=== PATIENT | female | born 1965 | race Caucasian/White ===

== ENCOUNTER 2023-04-02 08:32 | Emergency (ER) | payer BC, MEDICARE, SELFPAY ==
[2023-04-02] VITALS (14 sets, daily range): BP systolic 132–158; BP diastolic 66–88; PULSE 78–89; RESP 12–14; TEMP 36.4; O2SAT 97–100; BMI 33.3
--- NOTE | 2023-04-02 09:05 | CRLHL7_ITS ---
For Patients: As a result of the Century Cures Act, medical imaging exams and procedure reports are released immediately into your electronic medical record. You may view this report before your referring provider. If you have questions, please contact your health care provider. INDICATION: History of aneurysm. COMPARISON: None TECHNIQUE: CT examination of the head was performed as axial sections without intravenous contrast. Images were obtained from the vertex of the skull through the skull base. Please note that all CT scans at this facility use dose modulation, iterative reconstruction, and/or weight-based dosing when appropriate to reduce radiation dose to as low as reasonably achievable. FINDINGS: The brain shows no sign of mass lesion, mass effect, hemorrhage, or edema. The ventricles and sulci are normal in appearance for the patient`s age. The visualized portions of the orbits are normal in appearance. There are bilateral basal ganglionic calcifications which is considered normal variation. The osseous structures are normal in their appearance with no sign of abnormality in the skull base or calvarium. The patient`s reported known aneurysm is not directly visible on this noncontrast study. If this needs to be definitively evaluated, a CT angiogram would be recommended. IMPRESSION: 1. The patient`s reported/known aneurysm is not directly visible on this noncontrast study. Consider a CTA if definitive evaluation of an intercerebral aneurysm as required clinically. 2. No hemorrhage or mass identified. 3. Incidental basal ganglionic calcifications common normal variation. Please note that all CT scans at this facility use dose modulation, iterative reconstruction, and/or weight-based dosing when appropriate to reduce radiation dose to as low as reasonably achievable. Dictated by Angel Youngblood MD @ 04/02/2023 9:42:19 AM (Electronically Signed)
--- NOTE | 2023-04-02 09:06 | CRLHL7_ITS ---
For Patients: As a result of the Century Cures Act, medical imaging exams and procedure reports are released immediately into your electronic medical record. You may view this report before your referring provider. If you have questions, please contact your health care provider. INDICATION: Reported history of aneurysm. TECHNIQUE: CTA neck with contrast bolus tracking, 3D angiographic rendering using maximum intensity projection (MIP) and images permanently archived. FINDINGS: There is no significant carotid artery stenosis or dissection. There is no significant vertebral artery stenosis or dissection. The soft tissues of the neck are within normal limits. The cervical spine is in normal alignment. Degenerative changes are noted in the cervical spine. IMPRESSION: No significant carotid or vertebral artery stenosis or dissection. Please note that all CT scans at this facility use dose modulation, iterative reconstruction, and/or weight-based dosing when appropriate to reduce radiation dose to as low as reasonably achievable. Dictated by Christian Vaughn MD @ 04/02/2023 11:35:42 AM (Electronically Signed)
--- NOTE | 2023-04-02 09:06 | CRLHL7_ITS ---
For Patients: As a result of the Century Cures Act, medical imaging exams and procedure reports are released immediately into your electronic medical record. You may view this report before your referring provider. If you have questions, please contact your health care provider. INDICATION: Reported history of aneurysm. TECHNIQUE: CTA head with contrast bolus tracking, 3D angiographic rendering using maximum intensity projection (MIP) and images permanently archived. FINDINGS: There is normal opacification of the intracranial vasculature. There is no large vessel occlusion or significant intracranial stenosis. A left PCOM infundibulum is noted, an anatomic variant. No aneurysm is identified. A large mucous retention cyst is noted in the right maxillary sinus. IMPRESSION: Unremarkable head CTA. Please note that all CT scans at this facility use dose modulation, iterative reconstruction, and/or weight-based dosing when appropriate to reduce radiation dose to as low as reasonably achievable. Dictated by Christian Vaughn MD @ 04/02/2023 11:34:57 AM (Electronically Signed)
--- NOTE | 2023-04-02 09:09 | ED_ITS ---
HPI - General Adult General Chief complaint: Neuro Symptoms/Altered Deficit Stated complaint: passed out Time Seen by Provider: 04/02/23 09:03 History of Present Illness HPI narrative: Patient is a 57-year-old female was seen in the triage room. She has a history of by her report my CME gravis, fibromyalgia, unruptured cerebral aneurysm. She was eating some peppers at a table last night and passed out. Family reported that she slumped her head down on the table. Today she feels ?weird?. She has no chest pain, no breathing problem, feels like she has a little lightheadedness a little headache a little ?fuzziness?. The patient denies any specific limb weakness although feels generally weak. She has no other specific concerns presently was brought in by her mother. Patient denies clotting or bleeding problems, coronary artery disease, lung disease. She also has hypothyroidism. The patient's medication list includes albuterol, calcium carbonate, dextroamphetamine, [place] chloroquine, levothyroxine, lisinopril, methotrexate, promethazine, vilazodone. She normally doctors to [facility] Related Data Home Medications Medication Instructions Recorded Confirmed albuterol 90 mcg/actuation aerosol 180 mcg inhalation .q4hrs PRN 04/02/23 04/02/23 inhaler calcium carbonate 600 mg calcium 600 mg PO BID 04/02/23 04/02/23 (1,500 mg) tablet (Super Calcium) dextroamphetamine sulfate 5 mg 5 mg PO DAILY 04/02/23 04/02/23 capsule,extended release hydroxychloroquine 200 mg tablet 200 mg PO BID 04/02/23 04/02/23 levothyroxine 125 mcg tablet 125 mcg PO DAILY 04/02/23 04/02/23 (Euthyrox) lisinopril 10 mg tablet 10 mg PO DAILY 04/02/23 04/02/23 methotrexate sodium 2.5 mg tablet 15 mg PO QWEEK 04/02/23 04/02/23 promethazine 25 mg tablet 25 mg PO Q6H PRN 04/02/23 04/02/23 vilazodone 40 mg tablet 40 mg PO DAILY PRN 04/02/23 04/02/23 Allergies Allergy/AdvReac Type Severity Reaction Status Date / Time azithromycin Allergy Unknown Verified 04/02/23 11:08 benzoin Allergy Unknown Verified 04/02/23 11:08 bupropion Allergy Unknown Verified 04/02/23 11:08 cephalexin Allergy Unknown Verified 04/02/23 11:08 chlorhexidine Allergy Unknown Verified 04/02/23 11:08 levofloxacin Allergy Unknown Verified 04/02/23 11:08 neomycin Allergy Unknown Verified 04/02/23 11:08 tetracycline Allergy Unknown Verified 04/02/23 11:08 Iodinated Contrast Media Allergy Anaphylaxis Verified 04/02/23 11:08 Review of Systems Status of ROS: Reports: 6 or more systems reviewed and unremarkable except as noted in History and below [facility] Social History Smoking Status: Unknown if ever smoked How often do you have a drink containing alcohol: never AUDIT-C Alcohol total score: 0 Non-prescribed substance use: denies use Exam Narrative: Exam Narrative: Objective: Patient is alert orient x3 Vital signs are within normal limits, afebrile, O2 sat 100% on room air HEENT shows face no facial asymmetry, pupils equal reaction to light neck is supple Neurologic is nonfocal upper lower extremities she is able to stand she just feels generally weak Patient pulses regular Denies abdominal pain or back pain. Const: Vital Signs, click to edit/add: Vital Signs - 24 hr 04/02/23 08:55 04/02/23 09:25 04/02/23 09:36 Temperature 97.5 F L Pulse Rate Pulse Rate [Pulse Oximeter] 89 Respiratory Rate 14 Blood Pressure 150/87 H Blood Pressure [Ri ght Upper Arm] 141/85 H Pulse Oximetry 100 98 Oxygen Delivery Me od Room Air Room Air 04/02/23 09:38 04/02/23 09:40 04/02/23 09:46 Temperature Pulse Rate 85 84 Pulse Rate [Pulse Oximeter] Respiratory Rate 14 12 Blood Pressure 158/85 H 156/88 H Blood Pressure [Ri ght Upper Arm] Pulse Oximetry 98 98 Oxygen Delivery Me thod 04/02/23 10:01 04/02/23 10:17 04/02/23 10:31 Temperature Pulse Rate 81 84 84 Pulse Rate [Pulse Oximeter] Respiratory Rate 14 12 14 Blood Pressure 156/85 H 158/79 H 146/73 H Blood Pressure [Ri ght Upper Arm] Pulse Oximetry 98 97 98 [facility] 04/02/23 10:47 04/02/23 11:16 04/02/23 11:32 Temperature Pulse Rate 78 85 85 Pulse Rate [Pulse Oximeter] Respiratory Rate 12 12 12 Blood Pressure 150/72 H 137/66 133/75 Blood Pressure [Ri ght Upper Arm] Pulse Oximetry 98 98 98 Oxygen Delivery Me thod 04/02/23 11:47 04/02/23 12:00 Temperature 97.5 F L Pulse Rate 87 Pulse Rate [Pulse Oximeter] 89 Respiratory Rate 12 14 Blood Pressure 132/66 Blood Pressure [Ri ght Upper Arm] 141/85 H Pulse Oximetry 97 Oxygen Delivery Me thod Course Vital Signs Vital signs: Initial Vital Signs Temperature 97.5 F L 04/02/23 08:55 Temperature Source Temporal Artery Scan 04/02/23 08:55 Pulse Rate 89 04/02/23 08:55 Pulse Rhythm Regular 04/02/23 08:55 Respiratory Rate 14 04/02/23 08:55 Blood Pressure 141/85 H 04/02/23 08:55 Blood Pressure Mean 103 04/02/23 08:55 Blood Pressure Position Sitting 04/02/23 08:55 Pulse Oximetry 100 04/02/23 08:55 Oxygen Delivery Method Room Air 04/02/23 08:55 Vital Signs Temperature 97.5 F L 04/02/23 08:55 Pulse Rate 89 04/02/23 08:55 Respiratory Rate 14 04/02/23 08:55 Blood Pressure 141/85 H 04/02/23 08:55 Pulse Oximetry 100 04/02/23 08:55 Oxygen Delivery Method Room Air 04/02/23 08:55 Temperature 97.5 F L 04/02/23 12:00 Pulse Rate 89 04/02/23 12:00 Respiratory Rate 14 04/02/23 12:00 Blood Pressure 141/85 H 04/02/23 12:00 Pulse Oximetry 97 04/02/23 11:47 Oxygen Delivery Method Room Air 04/02/23 10:01 Medications Administered Medications: Discontinued Medications Generic Name Dose Route Start Last Admin Trade Name Freq PRN Reason Stop Dose Admin Diphenhydramine HCl 50 mg 04/02/23 09:21 04/02/23 09:36 Diphenhydramine 50 Mg/Ml Inj IVP 04/02/23 09:22 50 mg ONCE ONE Administration Hydrocortisone Sodium Succinate 200 mg 04/02/23 09:21 04/02/23 09:33 Hydrocortisone Sod Succinate 50 Mg/Ml Inj IVP 04/02/23 09:22 200 mg ONCE ONE Administration Sodium Chloride 1,000 mls @ 6,000 mls/hr 04/02/23 09:15 04/02/23 10:45 0.9 % Sodium Chloride 1000 Ml IV 04/02/23 09:24 Infused .Q10M [facility] Infusion Medical Decision Making [facility] Narrative Medical decision making narrative: [age] year white female with history of by her report fibromyalgia, myasthenia, cerebral aneurysm. Presents after syncopal episode last night after eating certain foods. Possible allergic reaction, possible [employer] issue, possible lack tried issue patient will get lab studies, CT scan CTA of the head neck, will also get EKG telemetry oximetry and also check troponin. Do a complete battery of labs. Give some IV fluid. Disposition pending findings above. Patient also reports she has a contrast allergy, but in discussing this with her she has only mild itching after premedication I think that be worth doing given her presentation and the fact that we need the study her head . She is willing to proceed with this will be given hydrocortisone and Benadryl pre CT. Addendum 11:42 a.m.: The patient feels better, she has a negative head and neck CT CTA, her laboratory studies look reassuring, her EKG by my read shows normal sinus rhythm no acute ST T wave changes, her troponin is 0. White count hemoglobin are normal. ER profile and LFTs are normal. Urinalysis and urine tox screen are negative other than amphetamine which she is on dextrose with dextroamphetamine. Alcohol levels negative. This point I think home rest light activity be reasonable observation, follow-up with primary care in the next 2-3 days recheck here sooner problems or concerns. I suspect she may have had a vasovagal reaction to the food she was eating. But will need to see how things progress over time. Follow-up as mention. Of note is the patient has had no chest pain, no shortness of breath, no hypoxia. I suspect have no suspicion for pulmonary emboli at this time given her reassuring clinical evaluation, absence of symptoms and good oximetry. Lab Data Labs: Lab Results 04/02/23 04/02/23 04/02/23 Range/Units 09:15 09:18 10:27 WBC 6.72 (4.50-11.00) K/uL RBC 4.77 (4.00-5.20) m/uL Hgb 14.1 (12.0-16.0) gm/dL Hct 42.9 (33.0-51.0) % MCV 90 (80-100) fL MCH 30 (26-34) pg MCHC 33 (32-36) gm/dL RDW Coeff of Raven 12.6 (11.5-15.5) % Plt Count 267 (140-440) K/uL Neut % (Auto) 53.5 (42.0-72.0) % Lymph % (Auto) 35.0 (20-44) % [place] % (Auto) 8.3 (0.0-11.0) % Eos % (Auto) 2.4 (0.0-7.0) % Baso % (Auto) 0.7 (0.0-3.0) % Neut # (Auto) 3.59 (1.7-7.0) K/uL Lymph # (Auto) 2.35 (0.90-2.90) K/uL [place] # (Auto) 0.60 (0.00-0.90) K/UL Eos # (Auto) 0.16 (0.00-0.50) K/uL Baso # (Auto) 0.05 (0.00-0.30) K/uL Abs Immat Gran (auto) 0.01 (0.00-0.30) K/uL Imm/Tot Granulo (auto) 0.1 % INR 0.85 L (0.91-1.10) Sodium 140 (135-149) mmol/L Potassium 4.0 (3.6-5.1) mmol/L Chloride 105 (96-114) mmol/L Carbon Dioxide 29 (20-32) mmol/L Anion Gap 6 L (7-15) mEq/L BUN 20 (7-30) mg/dL Creatinine 0.9 (0.5-1.5) mg/dL Estimated Creat Clear 62.06 Estimated GFR 75 ml/min Glucose 100 (60-115) mg/dL Calcium 10.4 (8.4-10.6) mg/dL Total Bilirubin 0.7 (0.1-1.5) mg/dL Direct Bilirubin 0.1 (0.0-0.5) mg/dL AST 28 (12-35) U/L ALT 26 (4-35) U/L Alkaline Phosphatase 90 (40-150) U/L C-Reactive Protein 0.6 (0.5-1.0) mg/dL NT-Pro-B Natriuret Pep 21 pg/mL Total Protein 7.3 (6.0-8.3) g/dL Albumin 4.5 (3.3-5.0) g/dL Urine Color Yellow (Yellow) Urine Appearance Clear (Clear) Urine pH 6.0 (5.0-8.5) Ur Specific [place] 1.015 (1.000-1.030) Urine Protein Negative (Negative) Urine Glucose (UA) Negative (Negative) Urine Ketones Negative (Negative) Urine Blood Negative (Negative) Urine Nitrite Negative (Negative) Urine Bilirubin Negative (Negative) Urine Urobilinogen 0.2 (0.2-1.0) Ur Leukocyte Esterase Negative (Negative) Urine RBC 0-2 (0-2) Urine WBC 0-2 (0-5) Ur Squamous Epith Cells Few (None-Few) Urine Bacteria None (None) Urine Opiates Screen Negative (Negative) Ur Oxycodone Screen Negative (Negative) Urine Methadone Screen Negative (Negative) Ur Propoxyphene Screen Negative (Negative) Ur Barbiturates Screen Negative (Negative) U Tricyclic Antidepress Negative (Negative) Ur Phencyclidine Scrn Negative (Negative) Ur Amphetamines Screen POSITIVE A (Negative) U Methamphetamines Scrn Negative (Negative) U Benzodiazepines Scrn Negative (Negative) Urine Cocaine Screen Negative (Negative) U Marijuana (THC) Screen Negative (Negative) Ur Drug Screen Comment See Note Ethyl Alcohol < 0.01 L (0.01-0.03) % SARS-CoV-2 (PCR) Negative SARS-CoV-2 (Negative) Influenza Type A (PCR) Negative PCR FLU A (Negative) Influenza Type B (PCR) Negative PCR FLU B (Negative) RSV (PCR) Negative PCR RSV (Negative) POC Troponin I 0.00 L (0.01-0.04) ng/ml Discharge Plan Discharge Clinical Impression: Syncope Patient Disposition: Home w/ Parent or Adult Condition: Improved Additional Instructions: Light activity, fluids, follow-up with primary care in the next 2-3 days, return to ED sooner problems concerns difficulty. Recommend no driving or alcohol for the next few days. Activity Level: Light activity Discharge Diet: Regular Prescriptions: No Action dextroamphetamine sulfate 5 mg capsule, extended release 5 mg PO DAILY lisinopril 10 mg tablet 10 mg PO DAILY promethazine 25 mg tablet 25 mg PO Q6H PRN calcium carbonate [Super Calcium] 600 mg calcium (1,500 mg) tablet 600 mg PO BID methotrexate sodium 2.5 mg tablet 15 mg PO QWEEK levothyroxine [Euthyrox] 125 mcg tablet 125 mcg PO DAILY Rx Instructions: 1 tab daily 6 times a week and 0.5 tab (62.5 mg) once every week. hydroxychloroquine 200 mg tablet 200 mg PO BID albuterol 90 mcg/actuation aerosol 180 mcg inhalation .q4hrs PRN vilazodone 40 mg tablet 40 mg PO DAILY PRN Rx Instructions: must administer with a meal/food Stand Alone Forms: [facility]
[2023-04-02] MEDS: 0.9 % SODIUM CHLORIDE 1000 ml 1,000 ML 6000 ML IV (09:23)
[2023-04-02 09:30] LABS: Basophils Absolute Auto 0.05 K/uL (0.00-0.30); Basophils Percent Auto 0.7 % (0.0-3.0); Eosinophils Absolute Auto 0.16 K/uL (0.00-0.50); Eosinophils Percent Auto 2.4 % (0.0-7.0); Hematocrit 42.9 % (33.0-51.0); Hemoglobin* 14.1 gm/dL (12.0-16.0); Immature Granulocytes Abs Auto 0.01 K/uL (0.00-0.30); Immature Granulocytes Pct Auto 0.1 %; Lymphocytes Absolute Auto 2.35 K/uL (0.90-2.90); Mean Corpuscular HGB Conc 33 gm/dL (32-36); Mean Corpuscular Hemoglobin 30 pg (26-34); Mean Corpuscular Volume 90 fL (80-100); Monocytes Percent Auto 8.3 % (0.0-11.0); Neutrophils Absolute Auto 3.59 K/uL (1.7-7.0); Neutrophils Percent Auto 53.5 % (42.0-72.0); Platelet Count* 267 K/uL (140-440); RDW Coefficient of Variation % 12.6 % (11.5-15.5); Red Blood Count 4.77 m/uL (4.00-5.20); White Blood Count* 6.72 K/uL (4.50-11.00)
[2023-04-02] MEDS: HYDROCORTISONE SOD SUCCINATE 50 MG/ML inj 200 MG IVP (09:33)
[2023-04-02] MEDS: diphenhydrAMINE 50 MG/ML inj IVP (09:36)
[2023-04-02 09:43] LABS: Slide Review Reflex No
[2023-04-02 09:45] LABS: Albumin* 4.5 g/dL (3.3-5.0); Chloride* 105 mmol/L (96-114); INR 0.85 (0.91-1.10); Prothrombin Time 12.1 Seconds; Sodium* 140 mmol/L (135-149)
[2023-04-02 09:48] LABS: Alkaline Phosphatase* 90 U/L (40-150); Anion Gap 6 mEq/L (7-15); Aspartate Amino Transferase* 28 U/L (12-35); Bilirubin Direct* 0.1 mg/dL (0.0-0.5); Bilirubin Total* 0.7 mg/dL (0.1-1.5); Carbon Dioxide* 29 mmol/L (20-32); Creatinine* 0.9 mg/dL (0.5-1.5); Est. Creatinine Clearance* 62.06; Estimated Glomerular Filt Rate 75 ml/min; Total Protein* 7.3 g/dL (6.0-8.3)
[2023-04-02 09:49] LABS: Alanine Aminotransferase* 26 U/L (4-35); Blood Urea Nitrogen* 20 mg/dL (7-30); Calcium* 10.4 mg/dL (8.4-10.6); Glucose* 100 mg/dL (60-115)
[2023-04-02 09:51] LABS: C Reactive Protein* 0.6 mg/dL (0.5-1.0)
[2023-04-02 09:57] LABS: Ethanol* < 0.01 % (0.01-0.03); NT Pro B Type NatriureticPept* 21 pg/mL
[2023-04-02 10:22] LABS: PCR FLU A Negative PCR FLU A (Negative); PCR FLU B Negative PCR FLU B (Negative); PCR RSV Negative PCR RSV (Negative)
[2023-04-02 10:27] LABS: SARS PCR* Negative SARS-CoV-2 (Negative)
[2023-04-02 10:35] LABS: Appearance Urine Clear (Clear); Bilirubin Urine Negative (Negative); Blood Urine Negative (Negative); Color Urine Yellow (Yellow); Glucose Urine Negative (Negative); Ketones Urine Negative (Negative); Leukocyte Esterase Urine Negative (Negative); Nitrite Urine Negative (Negative); Protein Urine Negative (Negative); Specific Gravity Urine 1.015 (1.000-1.030); Urobilinogen Urine 0.2 (0.2-1.0)
[2023-04-02 10:45] LABS: Amphetamine Screen Urine POSITIVE (Negative); Barbiturate Screen Urine Negative (Negative); Benzodiazepines Screen Urine Negative (Negative); Cannabinoid Screen Urine Negative (Negative); Cocaine Screen Urine Negative (Negative); Methadone Screen Urine Negative (Negative); Methamphetamines Screen Urine Negative (Negative); Opiate Screen Urine Negative (Negative); Oxycodone Screen Urine Negative (Negative); Phencyclidine Screen Urine Negative (Negative); Tricyclic Antidepressant Urine Negative (Negative)
[2023-04-02 10:57] LABS: RBC Urine 0-2 (0-2); Squamous Epithelial Cell Urine Few (None-Few); WBC Urine 0-2 (0-5)
--- NOTE | 2023-04-02 11:16 | ED.NURSE ---
0855-Pt to triage room. 0857-Dr. Stockton notified of symptoms. states to not call TTA, stroke code. 0859-MD in triage room to assess Pt. Verbal order for Head CT. 0918-No bed available. #18G IV established in R AC in triage room. Bloodwork drawn. POC Trop running. 0923-Pt moved to Rm1. IVF infusing. 924-Pt to CT. 33-Pt back from imaging. Preventative meds given for contrast, imaging aware of time administered. 0936-EKG done. 1009-Pt reports room MD alyssa aware. Pt to BR via w/c. 0736-UA sent.
== END 2023-04-02 12:00 | disposition home or self-care (01) ==
PROVIDERS: Emergency Provider Family Medicine
DX: R55 Syncope and collapse (principal)
CPT/HCPCS: 36415; 70450; 70496; 70498; 80048; 80076; 80306; 81001; 82077; 83880; 84484; 85025; 85610; 86140; 87086; 87631; 93005; 94761; 96374; 96375; 99284; 99285; J1200; J1720; J7030; Q9967

== ENCOUNTER 2023-05-15 11:54 | Outpatient (CLI) | payer BC, MEDICARE, SELFPAY | END 2023-05-15 11:55 | disposition home or self-care (01) | LOC: AMB 05-16 11:40 | PROVIDERS: PCP Family Medicine; Visit Provider Emergency Medicine | DX: R41.82 Altered mental status, unspecified (principal); R53.1 Weakness | CPT/HCPCS: A0425; A0427 ==

== ENCOUNTER 2023-05-15 12:34 | Emergency (ER) | payer BC, MEDICARE, SELFPAY ==
[2023-05-15] VITALS (27 sets, daily range): BP systolic 131–156; BP diastolic 63–75; PULSE 85–96; RESP 16; TEMP 36.4; O2SAT 97–100
--- NOTE | 2023-05-15 12:36 | CT_ITS ---
Patient: CYNDI NICHOLS Facility:?[facility] Patient ID:?[id number] Site Patient ID:?[id number]. Site :?[id number] Study:?CT-Head WITHOUT-05/15/2023 12:44:18 PM Ordering Physician:LANETTE Final Report: INDICATION: DELAY OF SPEECH, WEAKNESS RT SIDE COMPARISON: CT brain and CTA brain 04/02/2023 TECHNIQUE: A CT volumetric acquisition was performed of the brain without IV contrast. Please note that all CT scans at this facility use dose modulation, iterative reconstruction, and/or weight-based dosing when appropriate to reduce radiation dose to as low as reasonably achievable. FINDINGS: No intracranial hemorrhage, mass or mass effect. Similar appearance of the vessels. Basal ganglia calcifications. Normal navarro-white differentiation. No hydrocephalus. No midline shift. No fracture. Chronic partial opacification of the right maxillary sinus with a 3.1 cm mucous retention cyst. IMPRESSION: No significant change since the prior study. No acute findings. Please note that all CT scans at this facility use dose modulation, iterative reconstruction, and/or weight-based dosing when appropriate to reduce radiation dose to as low as reasonably achievable. Dictated by Khai Garcia MD @ 05/15/2023 1:02:01 PM Signed by:?Khai Garcia MD @05/15/2023 1:02:01 PM (Electronic Signature)
--- NOTE | 2023-05-15 13:09 | ED.GENADULT ---
HPI - General Adult General Date Seen: 05/15/23 Chief complaint: Weakness Stated complaint: weak Time Seen by Provider: 05/15/23 12:40 Source: patient, EMS, RN notes reviewed and old records reviewed Mode of arrival: EMS Limitations: no limitations History of Present Illness HPI narrative: Patient is a 57-year-old woman who arrives via EMS for evaluation of feeling ?weird since yesterday around 10 year time. She says that symptoms started with some flashing lights in her vision followed by tunnel vision although she did not faint. She says ever since then she has just felt off. She feels generally weak but no focal weakness. She reported word-finding difficulty to the paramedics although she does not have any difficulty speaking during our conversation. She denies any headache, she does have a history of migraine. She had an episode similar to this she tells me at the beginning of March, workup here was unremarkable. She has generally been seen by vijay Weems in [place] and generally goes to [facility] although she is now been here twice, unclear why she is coming here verses [facility]. She undergoes ketamine therapy for chronic pain, denies other pain medications. Denies alcohol use. She lives at home with her daughter and . She does not smoke. Paramedics initially brought her in as a stroke code although they later revised that assessment, given absence of any focal neurologic findings. Her blood sugar was normal. Blood pressure was 136 systolic in the ambulance. She does not have chest pain, palpitations, nausea, vomiting, abdominal pain, fevers, or other complaints. She tells me that she did see her primary doctor in follow-up after her visit here at the beginning of March. She had an EEG which she tells me is normal, she also had what sounds like a ZIO patch or maybe Holter, she says that she did not tolerate the adhesive and so that was aborted early, but there were no significant findings. She has listed a history of myasthenia gravis, she says that this was a possible diagnosis made by a neurologist in [place] many years ago, she says that she tried medication and her symptoms did not improve and that the diagnosis was uncertain. She does not have a neurologist locally. Other medical history includes PTSD, chronic fatigue, chronic pain, fibromyalgia, lupus. She lists a diagnosis of unruptured aneurysm in the brain, but note that no aneurysm was seen on CT angiogram at the beginning of March. All brain imaging at that time including CT of the head without contrast and CT angiogram of the head and neck was unremarkable. Related Data Home Medications Medication Instructions Recorded Confirmed albuterol 90 mcg/actuation aerosol 180 mcg inhalation .q4hrs PRN 04/02/23 04/02/23 inhaler calcium carbonate 600 mg calcium 600 mg PO BID 04/02/23 04/02/23 (1,500 mg) tablet (Super Calcium) dextroamphetamine sulfate 5 mg 5 mg PO DAILY 04/02/23 04/02/23 capsule,extended release hydroxychloroquine 200 mg tablet 200 mg PO BID 04/02/23 04/02/23 levothyroxine 125 mcg tablet 125 mcg PO DAILY 04/02/23 04/02/23 (Euthyrox) lisinopril 10 mg tablet 10 mg PO DAILY 04/02/23 04/02/23 methotrexate sodium 2.5 mg tablet 15 mg PO QWEEK 04/02/23 04/02/23 promethazine 25 mg tablet 25 mg PO Q6H PRN 04/02/23 04/02/23 vilazodone 40 mg tablet 40 mg PO DAILY PRN 04/02/23 04/02/23 calcium carb-vitamin D3-vit K2 PO 05/15/23 multivit 41-iron 1.5 mg-folate 8 1 cap PO DAILY 05/15/23 05/15/23 8.73 mg-pserinedha 6.4 mg capsuleDR (EnBrace HR) Allergies Allergy/AdvReac Type Severity Reaction Status Date / Time azithromycin Allergy Unknown Verified 04/04/23 16:30 benzoin Allergy Unknown Verified 04/04/23 16:30 bupropion Allergy Unknown Verified 04/04/23 16:30 cephalexin Allergy Unknown Verified 04/04/23 16:30 chlorhexidine Allergy Unknown Verified 04/04/23 16:30 levofloxacin Allergy Unknown Verified 04/04/23 16:30 neomycin Allergy Unknown Verified 04/04/23 16:30 tetracycline Allergy Unknown Verified 04/04/23 16:30 Iodinated Contrast Media Allergy Anaphylaxis Verified 04/04/23 16:30 Review of Systems Status of ROS: Reports: 10 or more systems reviewed and unremarkable except as noted in History and below PFSH PFS Social History Smoking Status: Unknown if ever smoked How often do you have a drink containing alcohol: never AUDIT-C Alcohol total score: 0 Non-prescribed substance use: denies use service: No Exam Narrative: Exam Narrative: Vital signs as noted above. In general, an alert, nontoxic woman. Head: Normocephalic, atraumatic. Eyes: Pupils are equal reactive. Extraocular movements are full. Conjunctivae are normal. ENT: Mucous membranes are moist. Throat is normal. Neck: Supple without lymphadenopathy. Heart: Regular rate and rhythm. No murmur or rub. Lungs: Clear bilaterally. No increased work of breathing, crackles or wheezes. Abdomen: Soft and nontender. No organomegaly. Extremities: Well perfused. No edema. No calf tenderness. Pulses intact. Neurologic: Patient is alert and oriented to person and place. Speech is fluent. Face is symmetric. Moves all extremities equally. Affect: Normal. Skin: Warm and dry. Well perfused. Const: Vital Signs, click to edit/add: Vital Signs - 24 hr 05/15/23 12:38 Temperature 97.6 F Pulse Rate [Pulse Oximeter] 92 Respiratory Rate 16 Blood Pressure [Ri ght Upper Arm] 156/71 H Pulse Oximetry 98 Oxygen Delivery Me thod Room Air Course Course ED Course: Patient was initially seen as possible stroke and had a plain head CT, but after my evaluation of her I do not feel this is likely stroke related. She does not have any focal neurologic findings. CT of the head by my review is unchanged compared to previous, she has some calcifications which are in the basal ganglion and are apparently a normal variant according to her prior CT read. I do not see any other acute findings. Will recheck some basic labs, give some fluids, rule out new conditions such as infection, metabolic derangement, dehydration, acute coronary syndrome, thyroid disease, etcetera. Labs here are reassuring. Her CBC is within normal limits. Metabolic panel notable for normal electrolytes, normal creatinine. Her calcium was slightly high at 11, an ionized calcium was minimally high at 1.34, not high enough I do not think to be causing significant symptoms for her. This can be rechecked with primary care. Liver function tests are normal, CRP is less than 0.5. TSH is 1.06. UA is negative, no ketones, no blood, no white blood cells. COVID flu and RSV are negative. Troponin was 0. An EKG by my review showed a sinus rhythm, ventricular rate of 88. No acute ST segment changes. Unremarkable T-waves. QT corrected of 438 milliseconds. She says she remains fatigued, but he overall exam remains nonfocal and unremarkable. I have discussed with her I do not have a clear indication for her symptoms today, I did discuss her case with Dr. Selby who was on-call for Neurology. He does not feel that there is anything to explore further from a neurologic standpoint. I would recommend primary care follow-up for recheck of her calcium and to see if any other test would be indicated at this time. Stable for discharge home. Vital Signs Vital signs: Initial Vital Signs Temperature 97.6 F 05/15/23 12:38 Temperature Source Temporal Artery Scan 05/15/23 12:38 Pulse Rate 92 05/15/23 12:38 Respiratory Rate 16 05/15/23 12:38 Blood Pressure 156/71 H 05/15/23 12:38 Blood Pressure Mean 99 05/15/23 12:38 Blood Pressure Position Supine 05/15/23 12:38 Pulse Oximetry 98 05/15/23 12:38 Oxygen Delivery Method Room Air 05/15/23 12:38 Vital Signs Temperature 97.6 F 05/15/23 12:38 Pulse Rate 92 05/15/23 12:38 Respiratory Rate 16 05/15/23 12:38 Blood Pressure 156/71 H 05/15/23 12:38 Pulse Oximetry 98 05/15/23 12:38 Oxygen Delivery Method Room Air 05/15/23 12:38 Temperature 97.6 F 05/15/23 12:38 Pulse Rate 92 05/15/23 12:38 Respiratory Rate 16 05/15/23 12:38 Blood Pressure 156/71 H 05/15/23 12:38 Pulse Oximetry 98 05/15/23 12:38 Oxygen Delivery Method Room Air 05/15/23 12:38 Medications Administered Medications: Discontinued Medications Generic Name Dose Route Start Last Admin Trade Name Freq PRN Reason Stop Dose Admin Sodium Chloride 1,000 mls @ 1,000 mls/hr 05/15/23 13:00 05/15/23 14:34 0.9 % Sodium Chloride 1000 Ml IV 05/15/23 13:59 Infused .Q1H MINNA Infusion Medical Decision Making Lab Data Labs: Lab Results 05/15/23 05/15/23 Range/Units 12:54 13:11 WBC 6.89 (4.50-11.00) K/uL RBC 5.08 (4.00-5.20) m/uL Hgb 14.9 (12.0-16.0) gm/dL Hct 45.1 (33.0-51.0) % MCV 89 (80-100) fL MCH 29 (26-34) pg MCHC 33 (32-36) gm/dL RDW Coeff of Raven 12.3 (11.5-15.5) % Plt Count 247 (140-440) K/uL Neut % (Auto) 65.8 (42.0-72.0) % Lymph % (Auto) 26.0 (20-44) % Walton % (Auto) 6.2 (0.0-11.0) % Eos % (Auto) 1.3 (0.0-7.0) % Baso % (Auto) 0.7 (0.0-3.0) % Neut # (Auto) 4.53 (1.7-7.0) K/uL Lymph # (Auto) 1.79 (0.90-2.90) K/uL Walton # (Auto) 0.40 (0.00-0.90) K/UL Eos # (Auto) 0.09 (0.00-0.50) K/uL Baso # (Auto) 0.05 (0.00-0.30) K/uL Abs Immat Gran (auto) 0.00 (0.00-0.30) K/uL Imm/Tot Granulo (auto) 0.0 % ESR 6 (2-20) mm/hr Sodium 138 (135-149) mmol/L Potassium 4.3 (3.6-5.1) mmol/L Chloride 107 (96-114) mmol/L Carbon Dioxide 28 (20-32) mmol/L Anion Gap 3 L (7-15) mEq/L BUN 17 (7-30) mg/dL Creatinine 1.0 (0.5-1.5) mg/dL Estimated GFR 66 ml/min Glucose 104 (60-115) mg/dL Lactate 1.0 (0.5-1.9) mmol/L Calcium 11.0 H (8.4-10.6) mg/dL Ionized Calcium Angie 1.34 H (1.11-1.30) mmol/L Total Bilirubin 0.7 (0.1-1.5) mg/dL Direct Bilirubin 0.2 (0.0-0.5) mg/dL AST 25 (12-35) U/L ALT 20 (4-35) U/L Alkaline Phosphatase 96 (40-150) U/L C-Reactive Protein < 0.5 L (0.5-1.0) mg/dL Total Protein 7.6 (6.0-8.3) g/dL Albumin 4.5 (3.3-5.0) g/dL TSH 1.060 (0.270-4.200) uIU/mL Urine Color Yellow Cancelled (Yellow) Urine Appearance Clear Cancelled (Clear) Urine pH 5.5 Cancelled (5.0-8.5) Ur Specific [place] 1.010 Cancelled (1.000-1.030) Urine Protein Negative Cancelled (Negative) Urine Glucose (UA) Negative Cancelled (Negative) Urine Ketones Negative Cancelled (Negative) Urine Blood Negative Cancelled (Negative) Urine Nitrite Negative Cancelled (Negative) Urine Bilirubin Negative Cancelled (Negative) Urine Urobilinogen 0.2 Cancelled (0.2-1.0) Ur Leukocyte Esterase Negative Cancelled (Negative) Urine RBC 0-2 Cancelled (0-2) Urine WBC 0-2 Cancelled (0-5) Urine WBC Clumps Cancelled Ur Squamous Epith Cells Few Cancelled (None-Few) [place] Biurate Crystals Cancelled Calcium Carbonate Cryst Cancelled Calcium Phosphate Cryst Cancelled Calcium Oxalate Crystal Cancelled Cystine Crystals Cancelled Uric Acid Crystals Cancelled Triple Phos Crystals Cancelled Sulfur Crystals Cancelled Cholesterol Crystals Cancelled Tyrosine Crystals Cancelled Hippuric Acid Crystals Cancelled Amorphous Sediment Cancelled Other Sediment Cancelled Urine Bacteria None Cancelled (None) Fatty Casts Cancelled Hyaline Casts Cancelled Fine Granular Casts Cancelled Coarse Granular Casts Cancelled Waxy Casts Cancelled RBC Casts Cancelled WBC Casts Cancelled Other Casts Cancelled Urine Starch Cancelled Urine Mucus Cancelled Urine Trichomonas Cancelled Urine Yeast Cancelled SARS-CoV-2 (PCR) Negative SARS-CoV-2 (Negative) Influenza Type A (PCR) Negative PCR FLU A (Negative) Influenza Type B (PCR) Negative PCR FLU B (Negative) RSV (PCR) Negative PCR RSV (Negative) POC Troponin I 0.00 L (0.01-0.04) ng/ml Discharge Plan Discharge Clinical Impression: Weakness Patient Disposition: Home, Self-Care Condition: Stable Instructions: Weakness (ED) Additional Instructions: Your testing today is reassuring. The neurologist did not feel that there were specific neurologic diagnoses that needed to be ruled out at this point, as you have already had an EEG and CT/CT angiogram. I would recommend follow-up with your primary doctor for further evaluation. Prescriptions: No Action dextroamphetamine sulfate 5 mg capsule, extended release 5 mg PO DAILY lisinopril 10 mg tablet 10 mg PO DAILY promethazine 25 mg tablet 25 mg PO Q6H PRN calcium carbonate [Super Calcium] 600 mg calcium (1,500 mg) tablet 600 mg PO BID methotrexate sodium 2.5 mg tablet 15 mg PO QWEEK levothyroxine [Euthyrox] 125 mcg tablet 125 mcg PO DAILY Rx Instructions: 1 tab daily 6 times a week and 0.5 tab (62.5 mg) once every week. hydroxychloroquine 200 mg tablet 200 mg PO BID albuterol 90 mcg/actuation aerosol 180 mcg inhalation .q4hrs PRN vilazodone 40 mg tablet 40 mg PO DAILY PRN Rx Instructions: must administer with a meal/food EnBrace HR 1.5 mg iron- 8.73 mg-6.4 mg capsule,IR - delay rel,biphase 1 cap PO DAILY calcium carb-vitamin D3-vit K2 PO Follow Up/Referrals: DARREL HILL [Primary Care Provider] - Stand Alone [facility]: [facility] Inst[facility]
[2023-05-15 13:25] LABS: Basophils Absolute Auto 0.05 K/uL (0.00-0.30); Basophils Percent Auto 0.7 % (0.0-3.0); Eosinophils Absolute Auto 0.09 K/uL (0.00-0.50); Eosinophils Percent Auto 1.3 % (0.0-7.0); Hematocrit 45.1 % (33.0-51.0); Hemoglobin* 14.9 gm/dL (12.0-16.0); Lymphocytes Absolute Auto 1.79 K/uL (0.90-2.90); Mean Corpuscular HGB Conc 33 gm/dL (32-36); Mean Corpuscular Hemoglobin 29 pg (26-34); Mean Corpuscular Volume 89 fL (80-100); Monocytes Percent Auto 6.2 % (0.0-11.0); Neutrophils Absolute Auto 4.53 K/uL (1.7-7.0); Neutrophils Percent Auto 65.8 % (42.0-72.0); Platelet Count* 247 K/uL (140-440); RDW Coefficient of Variation % 12.3 % (11.5-15.5); Red Blood Count 5.08 m/uL (4.00-5.20); White Blood Count* 6.89 K/uL (4.50-11.00)
[2023-05-15] MEDS: 0.9 % SODIUM CHLORIDE 1000 ml 1,000 ML IV (13:26)
[2023-05-15 13:30] LABS: Slide Review Reflex No
[2023-05-15 13:41] LABS: Albumin* 4.5 g/dL (3.3-5.0); Chloride* 107 mmol/L (96-114)
[2023-05-15 13:42] LABS: Potassium* 4.3 mmol/L (3.6-5.1); Sodium* 138 mmol/L (135-149)
[2023-05-15 13:44] LABS: Estimated Glomerular Filt Rate 66 ml/min
[2023-05-15 13:45] LABS: Alanine Aminotransferase* 20 U/L (4-35); Alkaline Phosphatase* 96 U/L (40-150); Anion Gap 3 mEq/L (7-15); Aspartate Amino Transferase* 25 U/L (12-35); Bilirubin Direct* 0.2 mg/dL (0.0-0.5); Bilirubin Total* 0.7 mg/dL (0.1-1.5); Blood Urea Nitrogen* 17 mg/dL (7-30); Carbon Dioxide* 28 mmol/L (20-32); Glucose* 104 mg/dL (60-115); Total Protein* 7.6 g/dL (6.0-8.3)
[2023-05-15 13:54] LABS: C Reactive Protein* < 0.5 mg/dL (0.5-1.0)
[2023-05-15 14:18] LABS: Erythrocyte SedimentationRate* 6 mm/hr (2-20)
[2023-05-15 14:24] LABS: PCR FLU A Negative PCR FLU A (Negative); PCR FLU B Negative PCR FLU B (Negative); PCR RSV Negative PCR RSV (Negative); SARS PCR* Negative SARS-CoV-2 (Negative)
[2023-05-15 14:38] LABS: Ionized Calcium* 1.34 mmol/L (1.11-1.30)
[2023-05-15 15:28] LABS: Appearance Urine Clear (Clear); Bilirubin Urine Negative (Negative); Blood Urine Negative (Negative); Color Urine Yellow (Yellow); Glucose Urine Negative (Negative); Ketones Urine Negative (Negative); Leukocyte Esterase Urine Negative (Negative); Nitrite Urine Negative (Negative); Protein Urine Negative (Negative); Urobilinogen Urine 0.2 (0.2-1.0); pH Urine 5.5 (5.0-8.5)
[2023-05-15 15:35] LABS: RBC Urine 0-2 (0-2); Squamous Epithelial Cell Urine Few (None-Few); WBC Urine 0-2 (0-5)
== END 2023-05-15 18:12 | disposition home or self-care (01) ==
PROVIDERS: Emergency Provider Emergency Medicine; PCP Family Medicine
DX: R53.1 Weakness (principal)
CPT/HCPCS: 36415; 70450; 80048; 80076; 81001; 82330; 83605; 84443; 84484; 85025; 85651; 86140; 87631; 93005; 99284; 99285; J7030

== ENCOUNTER 2023-09-17 13:30 | Outpatient (RCR) | payer BC, MEDICARE, SELFPAY | END 2024-01-15 23:59 | disposition home or self-care (01) | PROVIDERS: PCP Family Medicine; Visit Provider Family Medicine | DX: S06.0X1D Concussion with loss of consciousness of 30 minutes or less, subsequent encounter (principal); H53.149 Visual discomfort, unspecified; Z51.89 Encounter for other specified aftercare | CPT/HCPCS: 97140; 97165; 97535 ==

== ENCOUNTER 2024-05-07 16:10 | Emergency (ER) | payer BC, MEDICARE, SELFPAY ==
[2024-05-07] VITALS (12 sets, daily range): BP systolic 123–145; BP diastolic 77–90; PULSE 81–92; RESP 18; TEMP 36.6; O2SAT 90–100; BMI 35.3
--- OUTSIDE RECORDS SUMMARY | 2024-05-07 16:12 | XMS_ITS | Clinical Summary ---
Author Organization [employer] Address [address] [place] [id number] Phone Care Team Providers Care Rotogravure Press Operator Name Role Phone Neida Aragon MD Primary Care Provider [phone] Source Comments [employer] is fully rolled out on [employer]. Last update 09/02/08.[employer] Allergies Active Allergy Reactions Criticality Noted Date Comments Adhesive Itching/Pruritus,Samir h Medium 04/21/2023 Ziopatch adhesive Adhesive Tape Rash 11/17/2018 Azithromycin Hives,Rash High 05/08/2013 Bacitracin Other (see comments) 02/03/2015 Positive (+) skin patch test Benzalkonium Chloride Other (see comments) 08/2014 Positive (+) skin patch test Benzoin Hives,Rash Medium 03/18/2011 Contact dermatitis Bupropion Seizures,Other (see comments) High 02/20/2011 Seizures [place] Oil (Ylang-Ylang) Other (see comments) 02/03/2015 Cephalexin Unknown 11/17/2018 Chlorhexidine Other (see comments),Rash Medium 02/03/2015 Positive (+) skin patch test Allergic on skin testing Iv Contrast Anaphylaxis High 02/20/2011 Lavender Oil Other (see comments) 02/03/2015 Doubtful Positive (+) Skin Patch Test Levofloxacin Fatigue,Other (see comments) Medium 10/08/2013 Joint pain Neomycin Other (see comments),Rash Medium 02/03/2015 Positive (+) skin patch test Allergic on patch testing Other Other (see comments) 02/03/2015 Colophony,Balsam of [place],2-Oh ethyl methacrylate,MMA,Co mpositae mix,EGDMA,2-Oh ethyl acrylate,2-Oh propyl MA,Frankincense,Dim ethylaminopropylami ne ,Fragrance mix,Amidoamine,Lemo n Grass oil,Ethyl acrylate,Triethylen e glycol diacrylate; Positive (+) skin patch test INTOLERANCE: Phenylmercuric acetate,Sodium omadine,Benzyl cinnamate,Isoeugeno l,Beigamot; Doubtful Positive (+) Skin Patch Test Peppermint Oil Other (see comments) 02/03/2015 Positive (+) skin patch test Propolis Other (see comments) 02/03/2015 Positive (+) skin patch test Tea Tree Oil Other (see comments) 02/03/2015 Doubtful Positive (+) Skin Patch Test Tetracycline Anxiety,Other (see comments) Low 2007 anxiety Wound Dressing Adhesive Rash Low 07/08/2014 Also happened with ziopatch Medications * Be aware that medications may not be up to date as of this document. Always verify current medications with patient. levothyroxine (SYNTHROID) 125 mcg oral tabletIndications:D ermatitis Take 1 tablet (125 mcg) by mouth daily. 5 Active esomeprazole (NEXIUM) 40 mg oral packetIndications:D ermatitis Take 40 mg by mouth daily. 5 Active desoximetasone (TOPICORT) 0.25 % externally ointmentIndications :Dermatitis Apply topically. 5 Active ondansetron (ZOFRAN ODT) 4 mg oral disintegrating tabletIndications:D ermatitis Take 1 tablet (4 mg) by mouth three times daily as needed. 12 tablet 5 Active clobetasol (TEMOVATE) 0.05 % externally ointmentIndications :Dermatitis 60 g 2 5 Active butalbital-acetamin ophen-caffeine (ESGIC-PLUS) 50-500-40 mg oral tabletIndications:D ermatitis Take by mouth. 5 Active atenolol (TENORMIN) 25 mg oral tabletIndications:D ermatitis Take 1 tablet (25 mg) by mouth daily. 30 tablet 11 5 Active cyclobenzaprine (FLEXERIL) 10 mg oral tabletIndications:D ermatitis Take 1 tablet (10 mg) by mouth three times daily. 30 tablet 5 Active meloxicam (MOBIC) 15 mg oral tabletIndications:D ermatitis Take 1 tablet (15 mg) by mouth daily. 30 tablet 5 Active metroNIDAZOLE (METROCREAM) 0.75% externally creamIndications:De rmatitis 5 Active albuterol (VENTOLIN HFA;PROVENTIL HFA;PROAIR) 108 (90 BASE) MCG/ACT inhalation inhalerIndications: Dermatitis Inhale 2 puffs every four hours as needed. 5 Active ibuprofen (MOTRIN;ADVIL) 200 mg oral tabletIndications:D ermatitis Take 1 tablet (200 mg) by mouth every six hours as needed. 100 tablet 5 Active lisinopril (PRINIVIL;ZESTRIL) 20 mg oral tabletIndications:D ermatitis Take 20 mg by mouth. Take two 20 mg tablets daily = 40 mg 5 Active Lactobacillus (PROBIOTIC ACIDOPHILUS ORAL) Take by mouth. Active levomilnacipran HCl (FETZIMA) 80 MG oral 24 HR capsule Take 80 mg by mouth daily. Active VITAMIN D, CHOLECALCIFEROL, ORAL Take 5,000 UNITS by mouth. Active B Complex Vitamins (VITAMIN B COMPLEX ORAL) Take by mouth. Active sodium chloride 1 gm oral TABS Take 1 tablet (1 g) by mouth 4 times daily. 120 tablet 3 4 Active fludrocortisone acetate (FLORINEF) 0.1 mg oral TABS Take 1 tablet (0.1 mg) by mouth daily. 30 tablet 11 4 Active Active Problems Problem Noted Date Diagnosed Date POTS (postural orthostatic tachycardia syndrome) 01/07/2024 Tachycardia 01/07/2024 Dermatitis 09/05/2014 Assessment & Plan (09/05/2014 12:19 PM CDT): A: History of REM diagnosed by [facility] 10 years ago. Today, c/o intermittent very itchy skin-blisters develop where she scratches on forearms, bilateral backs of hands, and in between fingers x6-8 this year. Last experienced in June. Only develops this rash when she's sick. Most relief with dexamethasone, no relief with Benadryl or Atarax. History of allergy to poison dorene and metals in earrings. It appears pt was erroneously scheduled to Allergy Clinic, not to [facility] Test [facility] P: -Refer to [facility] Test Clinic-possible scheduling error and was referred to Allergy by mistake. -Recommend patient to follow up in Allergy if patch testing is inconclusive in Patch Clinic Social History Tobacco Use Types Packs/Day Years Used Date Smoking Tobacco: Never Smokeless Tobacco: Never Tobacco Cessation:Counseling Given: Not Answered Alcohol Use Standard Drinks/Week Comments Yes 0 (1 standard drink = 0.6 oz pure alcohol) maybe 4 drinks per year / rarely Comments Unknown Sex and Gender Information Value Date Recorded Sex Assigned at Female 10/06/2023 9:37 AM CDT Legal Sex Female 10:00 AM CDT Gender Identity Female 10/06/2023 9:37 AM CDT Sexual Orientation Straight 10/06/2023 9: 37 AM CDT Last Filed Vital Signs Vital Sign Reading Time Taken Comments Blood Pressure 139/70 01/13/2024 1:33 PM CDT Pulse 98 01/13/2024 1:33 PM CDT Temperature - - Respiratory Rate - - Oxygen Saturation - - Inhaled Oxygen Concentration - - Weight 97.1 kg (214 lb) 10/08/2023 12:59 PM CDT Height 165.1 cm (5' 5) 01/13/2024 1:33 PM CDT Body Mass Index 34.54 01/30/2015 10:09 AM TREASURY ASSOCIATE Plan of Treatment Health Maintenance Due Date Last Done Comments CT Colonography 1965 Colonoscopy 1965 Colorectal Cancer Screening 1965 Dental Oral Exam 1965 Dental Prophylaxis 1965 Dental X-Ray: Bitewings 1965 Depression Management 1965 FIT/Cologuard 1965 Sigmoidoscopy 1965 iFOB/FIT 1965 Periodontal Maintenance 09/01/1979 HIV Screening 1980 HEALTH MAINTENANCE PROTOCOL 1984 Imm: HepB (1 of 3 - 19+ 3-dose series) 1984 Cervical Cancer Screening Age 30-65 09/01/1995 Imm: Pneumonia 50 years and older (1 of 1 - PCV) 09/01/2015 Imm: Zoster (1 of 2) 09/01/2015 Imm: DTaP/Tdap (2 - Td or Tdap) 2020 2010, 2007 PREVENTATIVE VISIT 03/26/2023 03/26/2022, 0 09/18/2020, 01/20/2019, Additional history exists Imm: COVID-19 ( season) 2023 Imm: Flu (#1) 11/30/2023 02/23/2010, 12/12/2008 Medicare Annual Wellness 03/25/2024 03/25/2023 Breast Cancer Screening 03/26/2025 03/26/20, 09/13/2014, 09/05/2011, Additional history exists Lipid Screening 03/26/2028 03/26/2023, 01/30, 09/14/2020, Additional history exists Imm: HPV Aged Out No longer eligi ble based on patient's age to complete this topic Imm: HepA Aged Out No longer eligi ble based on patient's age to complete this topic Imm: Hib Aged Out No longer eligi ble based on patient's age to complete this topic Imm: Meningitis Aged Out No longer el igible based on patient's age to complete this topic Imm: Pneumonia Peds or At-Risk less than 50 years Aged Out No longer santa gible based on patient's age to complete this topic Insurance ELIZABETH CUMMINGS [id number] [facility] MEDICARE Care Teams Rotogravure Press Operator Relationship Specialty [place] [id number] [place] [id number] PCP - General Outside Provider 08/25/14
--- OUTSIDE RECORDS SUMMARY | 2024-05-07 16:12 | XMS_ITS | Encounter Summary ---
Author Organization [facility] Address [address] [place] [id number] Care Team Providers Care Picking Machine Operator Helper Name Role Phone Neida Aragon MD Primary Care Provider Encounter Details Date Type Department Care Team (Late st Contact Info) Description 09/15/2014 Telephone [facility] [address] [place] [address] [place] [address] [place] [id number] Social History Tobacco Use Types Packs/Day Years Used Date Smoking Tobacco: Never Assessed Sex and Gender Information Value Date Recorded Sex Assigned at Female 12/11/2023 10:34 PM CDT Gender Identity Female 12/11/2023 10:34 PM CDT Sexual Orientation Not on file documented as of this encounter Plan of Treatment Upcoming Encounters Date Type Department Care Team (Late st Contact Info) Description 05/17/2024 2:30 PM SWITCHBOARD INSTALLER Appointment [facility] [address] [place] [address] [place] [address] [place] [id number] 05/25/2024 10:30 AM SWITCHBOARD INSTALLER Appointment [facility] [address] [facility] [address] [place], [place] [id number] [phone] 05/26/2024 1:00 PM SWITCHBOARD INSTALLER Appointment Audiology at [facility] [address] [facility] [address] [place] [phone] Robert Leiva AU.D. [address] [place] [address] 06/08/2024 8:15 AM CDT Appointment Pulmonary at [facility] [address] [facility] [address] [place] [address] Neurock, Isadora Esteves, SENIOR TRAINING AND DEVELOPMENT REP, APPLICATIONS ANALYST [address] [place] [address] 11/22/2024 2:45 PM CDT Appointment Rheumatology at [facility] [id number] [place] [id number] [place] [address] Dakota Gould MD [address] [place] [address] documented as of this encounter Visit Diagnoses Not on filedocumented in this encounter Additional Health Concerns Infection Onset Date Last Indicated Resolved Time R/O COVID19 02/19/2022 02/19/2022 02/20/2022 3:39 AM SWITCHBOARD INSTALLER R/O COVID19 02/17/2023 02/17/2023 02/17/2023 9:09 PM SWITCHBOARD INSTALLER documented as of this encounter Care Teams Picking Machine Operator Helper Relationship Specialty [place] [address] [place] [id number] PCP - General 12/11/11 documented as of this encounter
--- OUTSIDE RECORDS SUMMARY | 2024-05-07 16:12 | XMS_ITS | Continuity of Care Document ---
Author Name [facility] Organization [facility] Care Team Providers Care Natural Resources Technician Name Role Phone [facility] Unavailable Unavailable Problems Combined list of problems from Department of Defense and Veterans Affairs facilities. It does not include entries that were removed or entered in error. Problem Status Onset Date Problem Type Date of Resolution Comments Source visit for: issue repeat prescription Active Condition Rx for cymbalta also written. DoD major depression chronic Active Condition Will taper off Lexapro. [facility]D Blood Chemistry Abnormal Active Condition slight elv in cr kinase and lupus ab, but has been ruled out at [facility] for lupus. will recheck titers although lack of arthralgia make lupus and rheum disease less likely. DoD chronic fatigue syndrome Active Condition [facility] follow [facility] in one [facility]. [facility] routine history and physical adult (18 - 64 yrs) Active Condition DoD perleche Inactive Condition stop chewi ng gum.will try thin amount of cortisone once and then vaseline for a few days. DoD classic migraine with aura Active Condition DoD depression Active Condition Well controlled, continue Cymbalta 60 mg q am, handwritten rx given #90 RF2; F/u in 3-4 months, sooner prn. Denies SI/HI. [facility] common cold Inactive Condition increase fluids, humidifier at bedside q hs, tylenol prn for discomfort. RTC for worsening sx, or if no improvement in next 7-10 days DoD hypertension systemic Active Condition Will stop Lotrel and start Lisinopril 20mg po qd. She will follow up with new PCM. DoD sinusitis Active Condition DoD routine gynecological exam with cervical pap smear Active Condition RECOMMEND DAILY MULTVITAMIN AND CALCIUM INTAKE, REVIEWED AND ENCOURAGED MONTHLY SELF BREAST EXAM - ENCOURAGED PT TO INCREASE ACTIVITY AND START EXERCISE PROGRAM - SHE WILL NEED TO SEE HER PCM ALSO TO FOLLOW HER THYROID CONDITION DoD insomnia Active Condition nonformula ry written for braeden DoD carpal tunnel syndrome Active Condition DoD winter itch Active Condition DoD muscle weakness Active Condition labs normal will await neurology evaluation DoD hypothyroidism Active Condition Alexander nue current regimine. DoD visit for: issue repeat prescription for medication Inactive Condition CHRONIC MEDS RENEWED, WILL BE ASSIGNED TO FAMILY PRACTICE NOT ON FLY STATUS. F/U WITH NEW PCM AFTER INPROCESSING. AMITRIP LEVEL CHECKED TODAY DoD Allergies, Adverse Reactions, Alerts Combined list of allergies from Department of Defense and Veterans Affairs facilities. It does not include entries that were removed or entered in error. Substance Category Reaction Severity Reaction type Status Date Reported Comments Source OTHER Drug allergy (disorder ) active 6 [facility] TETRACYCLINES {Cla } Drug allergy (disorder ) Unknown active [address] [place] [address] WELLBUTRIN (BUPROPION HCL) Drug allergy (disorder ) Unknown active [address] [place] [address] Encounters Combined list of: 1) Encounters from Department of Veterans Affairs facilities going backup to the last 18 months, not all [place] inpatient encounters are included; 2) Encounters from the Department of Defense facilities going backup to 280 months. Location Location Details Encounter Type Encounter Number Reason For Visit Attending Provider ADM Date DC Date Status Disposition Source [address] [place] [address] OUTPATIENT [id number] SYMONE CANTU 01/04 Released w/o Limitations [address] [place] [address] OUTPATIENT [id number] BETTY MUNOZ 03/18 Released w/o Limitations [address] [place] [address]([facility]) OUTPATIENT [id number] C/O CHRONIC CIRCULA TIONS PROBLEM S IN ARMS AND LEGS BETTY MUNOZ 04/22 Released w/o Limitations [address] [place] [address] [facility] [address] [place] [address]([facility]) OUTPATIENT [id number] F/U FOR MUSCLE WEAKNES S BETTY MUNOZ. 05/23 Released w/o Limitations [address] [place] [address]([facility] [address] [place] [address]([facility]) OUTPATIENT [id number] ANNUAL PAP SANDRINE WEI 01/28 Released w/o Limitations [facility] Medical [facility]) [address] [place] [address]([facility]) OUTPATIENT [id number] C/O SORE THROAT AND HEAD/CH EST CONGEST MARK ELLIS 02/26 Released w/o Limitations [address] [place] [address]([facility] [address] [place] [address]([facility]) OUTPATIENT [id number] NEEDS TO DISCUSS MEDICAT ION ISSUES MARK SANFORD 02/27 Released w/o Limitations [employer] [address] [place] [address]([facility]) OUTPATIENT [id number] f/u depress ion and medicat ion MARK SANFORD 04/18 Released w/o Limitations [employer] [address] [place] [address]([facility]) OUTPATIENT [id number] C/O SORE THROAT, COUGH, HEADACH E, EAR PAIN X 5 DAYS CHARITY JASKARAN A 05/15 Released w/o Limitations [employer] [address] [place] [address]([facility]) OUTPATIENT [id number] migrain e headach e MARK SANFORD 08/15 Released w/o Limitations [employer] [address] [place] [address]([facility]) OUTPATIENT [id number] annual women's health- no pap needed YASMANI OSBORNE 03/05 Released w/o Limitations [employer] [address] [place] [address]([facility]) OUTPATIENT [id number] TO DISCUSS LABS AND RX REFILLS LILIANA DAVIS Released w/o Limitations [employer] [address] [place] [address]([facility]) OUTPATIENT [id number] pt needs to discuss getting meds extende d due to retirin g and moving LILIANA DAVIS 06/16 Released w/o Limitations [address] [place] [address]([facility] Procedures Combined list of: 1) Procedures from Department of Veterans Affairs facilities going back up to thelast 18 months, not all VA non-surgical procedures are included; 2) All procedures from the Department of Defense facilities. Procedure Procedure Type Code Date Perfomer Comments Sourc e Physician Supervised Injection Intramuscular Physician Supervised Injection Intramuscular [id number] 7 MARK SANFORD [facility] Screening papanicolaou smear; obtaining, preparing and conveyance of cervical or vaginal smear to laboratory 6 SANDRINE WEI DoD Splint, prefabricated, wrist or ankle 6 BETTY MUNOZ [facility] CANNULA, NASAL 2 DoD ELECTROCARDIOGRAM, ROUTINE ECG WITH AT LEAST 12 LEADS; WITH INTERPRETATION AND REPORT 4 DoD INDIVIDUAL PSYCHOTHERAPY, INSIGHT ORIENTED, BEHAVIOR MODIFYING AND/OR SUPPORTIVE, IN AN OFFICE OR OUTPATIENT FACILITY, APPROXIMATELY 45 TO 50 MINUTES [id number] W THE PATIENT; W MED EVAL & MGT SER 4 DoD INDIVIDUAL PSYCHOTHERAPY, INSIGHT ORIENTED, BEHAVIOR MODIFYING AND/OR SUPPORTIVE, IN AN OFFICE OR OUTPATIENT FACILITY, APPROXIMATELY 45 TO 50 MINUTES [id number] W THE PATIENT; W MED EVAL & MGT SER 4 DoD OPHTHALMOLOGICAL SERVICES: MEDICAL EXAMINATION AND EVALUATION, WITH INITIATION OR CONTINUATION OF DIAGNOSTIC AND TREATMENT PROGRAM; COMPREHENSIVE, ESTABLISHED PATIENT, 1 OR MORE VISITS 4 DoD PHARMACOLOGIC MANAGEMENT, INCLUDING PRESCRIPTION, USE, AND REVIEW OF MEDICATION WITH NO MORE THAN MINIMAL MEDICAL PSYCHOTHERAPY 4 DoD NONINVASIVE EAR OR PULSE OXIMETRY FOR OXYGEN SATURATION; SINGLE DETERMINATION 4 DoD BIOPSY OF SKIN, SUBCUTANEOUS TISSUE AND/OR MUCOUS MEMBRANE (INCLUDING SIMPLE CLOSURE), UNLESS OTHERWISE LISTED; SINGLE LESION 4 DoD SCREENING PAPANICOLAOU SMEAR; OBTAINING, PREPARING AND CONVEYANCE OF CERVICAL OR VAGINAL SMEAR TO LABORATORY 4 DoD NONINVASIVE EAR OR PULSE OXIMETRY FOR OXYGEN SATURATION; SINGLE DETERMINATION 3 DoD INJECTION, KETOROLAC TROMETHAMINE, PER 15 MG 3 DoD PURE TONE AUDIOMETRY (THRESHOLD); AIR ONLY 3 DoD THERAPEUTIC, PROPHYLACTIC OR DIAGNOSTIC INJECTION (SPECIFY SUBSTANCE OR DRUG); SUBCUTANEOUS OR INTRAMUSCULAR 7 DoD SCREENING PAPANICOLAOU SMEAR; OBTAINING, PREPARING AND CONVEYANCE OF CERVICAL OR VAGINAL SMEAR TO LABORATORY 6 DoD SPLINT, PREFABRICATED, WRIST OR ANKLE 6 DoD SCREENING PAPANICOLAOU SMEAR; OBTAINING, PREPARING AND CONVEYANCE OF CERVICAL OR VAGINAL SMEAR TO LABORATORY 2 DoD FAMILY PSYCHOTHERAPY (CONJOINT PSYCHOTHERAPY) (WITH PATIENT PRESENT), 50 MINUTES 2 DoD NONINVASIVE EAR OR PULSE OXIMETRY FOR OXYGEN SATURATION; SINGLE DETERMINATION 2 DoD HANDLING AND/OR CONVEYANCE OF SPECIMEN FOR TRANSFER FROM THE OFFICE TO A LABORATORY 0 [facility] UNLISTED PROCEDURE, PHARYNX, ADENOIDS, OR TONSILS 0 [facility] EDUCATIONAL SUPPLIES, SUCH BOOKS, TAPES, AND PAMPHLETS, FOR THE PATIENT'S EDUCATION AT COST TO PHYSICIAN OR OTHER QUALIFIED HEALTH PATIENT ACCOUNTING REPRESENTATIVE 0 DoD Social History Combined list of available smoking, tobacco, and other social history from Department of Defense and Veterans Affairs facilities. Social History Type Response Date Comment Sour e This section is an empty social history section. DoD
--- OUTSIDE RECORDS SUMMARY | 2024-05-07 16:12 | XMS_ITS | Clinical Summary ---
Author Organization [employer] [facility] Address [place], [place] [address] Care Team Providers Care Truck Shop Supervisor Name Role Phone Bri Silvestre MD Primary Care Provider Lenard mojica Allergies Active Allergy Reactions Criticality Noted Date Comments Iodinated Contrast Media Anaphylaxis 08/29/2008 Tetracycline 08/29/2008 Bupropion Seizures 08/29/2008 Medications CALCIUM + VITAMIN D ORAL one a day Activ e FISH OIL 1,000 MG CAP one a day Active B COMPLEX 1 ORAL one a day Active PROAIR HFA INHL prn Acti ve ZOMIG 5 MG TAB take 1 tab (5 mg) orally x 1 dose; if headache returns, the dose may be repeated after 2 hours, not to exceed 10 mg within 24 hours Active MULTIVITAMIN ORAL one a day Active AMITRIPTYLINE 50 MG TAB take 1 tablet (50 mg) by oral route every night at bed time 30 0 12/28/2008 Active CYMBALTA 60 MG CAP take 1 tablet (60 mg) by oral route once daily 30 0 12/28/2008 Active LISINOPRIL 20 MG TAB take 1 tablet (20 mg) by oral route once daily 30 0 12/28/2008 Active NEXIUM 20 MG CAP take 1 capsule (20 mg) by oral route twice daily 30 0 12/28/2008 Active LEVOTHYROXINE 150 MCG TAB take 1 tablet (150 mcg) by oral route once daily 90 2 01/01/2009 Active Active Problems Problem Noted Date Diagnosed Date HTN (hypertension) 08/29/2008 Overview (08/29/2008): Cr: 04/06 (06/06) Urine Micro/Cr: 4.1 (08/05) Hypothyroidism 08/29/2008 Overview (08/29/2008): TSH on 06/20/08: 0.72 Depression 08/29/2008 GERD (gastroesophageal reflux disease) 9 Migraine 08/29/2008 Myasthenia gravis 08/29/2008 Overview (08/29/2008): Follows with Dr. Jose Burgess at [facility] Carpal tunnel syndrome 08/29/2008 Overview (08/29/2008): Bilateral at wrists Cervical spondylosis 08/29/2008 Overview (08/29/2008): Mild central stenosis and bilateral foraminal narrowing at C5-C6 (MRI in 10/03) Health maintenance examination 08/29/2008 Overview (08/29/2008): FG in 08/05: 73 Immunizations Name Administration Dates Next Due Td (Age >=7 Years) 2007 Family History Medical History Relation Name Comments Other Brother Alcohol/Drug ad diction Cancer-colon Father Cancer-breast Maternal Grandmother Diabetes Maternal Grandmother Heart Disease Maternal Grandmother Stroke Maternal Grandmother Thyroid Disease Maternal Grandmother Hypo thyroidism Cancer Mother Lung cancer Diabetes Mother Relation Name Status Comments Brother Father (Age 45) Maternal Grandmother Mother (Age 51) Social History Tobacco Use Types Packs/Day Years Used Date Smoking Tobacco: Never Alcohol Use Standard Drinks/Week Comments Yes 0 (1 standard drink = 0.6 oz pur e alcohol) Rare Comments Unknown Sex and Gender Information Value Date Recorded Sex Assigned at Not on file Legal Sex Female 5:59 AM MARINE ENGINEER Gender Identity Not on file Sexual Orientation Not on file Obstetrics History Last Filed Vital Signs Vital Sign Reading Time Taken Comments Blood Pressure 128/58 04/07/2013 9:27 PM MARINE ENGINEER Pulse 91 04/07/2013 9:27 PM MARINE ENGINEER Temperature 36.9 C (98.4 F) 04/07/2013 6:46 PM MARINE ENGINEER Respiratory Rate 18 04/07/2013 9:27 PM MARINE ENGINEER Oxygen Saturation 99% 04/07/2013 9:27 PM MARINE ENGINEER Inhaled Oxygen Concentration - - Weight - - Height - - Body Mass Index - - Plan of Treatment Health Maintenance Due Date Last Done Comments Tdap 1976 Depression screening for age 12+ 1977 HIV for age 15-65 1980 BMI (ht and wt on same day) for age 18+ 09/01/1983 Hepatitis C screening for age 18-79 09/01/1983 Pap test for age 21-65 1986 Colonoscopy through age 75 2010 Mammogram for age 45-75 2010 Lipids for age 45-75 08/29/2013 08/29/2008 Pneumococcal series for age 50+ (1 of 1 - PCV) 016 Zoster (shingles) series for age 50+ (1 of 2) 09/01/19 16 Tetanus booster 08/30/2017 2007 COVID-19 vaccine series ( - 2023-25 season) Influenza for age 50-64 11/30/2023 Procedures Procedure Name Priority Date/Time Associated Diagnosis Comments LIPID PANEL Timed 08/29/2008 8:55 AM CDT from Last 3 Months or Most Recently Relevant to Health Maintenance Results * (ABNORMAL) LIPID PANEL (08/29/2008 8:55 AM CDT) CHOLESTEROL,TOTAL 203(H) 110 - 199 mg/dL [facility] TRIGLYCERIDES 188(H) 40 - 149 mg/dL [facility] HDL CHOLESTEROL 55 >40 mg/dL [facility] CHOL/HDL RATIO 3.69 <4.51 [facility] LDL CHOLESTEROL 110 <131 mg/dL [facility] PATIENT STATUS Fasting [facility] 08/29/2008 8:55 AM CDT 08/29/2008 8:48 AM CDT us Bri Silvestre MD CHEMISTRY Final Result [facility] INTERNAL ZIP [id number] [address] from Last 3 Months or Most Recently Relevant to Health Maintenance Care Teams Truck Shop Supervisor Relationship Specialty Start Date End Date Bri Silvestre MD PCP - General 12/31/07
--- OUTSIDE RECORDS SUMMARY | 2024-05-07 16:13 | XMS_ITS | Encounter Summary ---
Author Organization [facility] Address [address] [place] [address] Care Team Providers Care Environmental Services Tech Name Role Phone Neida Aragon MD Primary Care Provider Reason for Visit * Reason Comments BLOOD PRESSURE, HIGH Encounter Details Date Type Department Care Team (Late st Contact Info) Description 11/17/2018 Nurse Triage [facility] [address] [place], [place] [phone] Neida Aragon MD [address] [place] [phone] BLOOD PRESSURE, HIGH Social History Tobacco Use Types Packs/Day Years Used Date Smoking Tobacco: Never Smokeless Tobacco: Never Alcohol Use Standard Drinks/Week Comments Not Currently 0 (1 standard drink = 0.6 oz pur e alcohol) Alcoholic Drinks/day:Rare Sex and Gender Information Value Date Recorded Sex Assigned at Female 12/11/2023 10:34 PM CDT Gender Identity Female 12/11/2023 10:34 PM CDT Sexual Orientation Not on file documented as of this encounter Nursing Notes * Marry Moseley RN - 11/17/2018 9:21 AM CDT Spoke to patient regarding high blood pressures with onset yesterday. Patient reports recent pressures of 170/136, 155/120, 163/96 along with symptoms of headache, shortness of breath and nausea juststarting today. Denies chest pain or respiratory distress. Patient states she has another adult to drive her to Emergency Department now for evaluation, and advised patient to leave now and call 911 with any chest pain or worsening/new symptoms. Problem list reviewed as related to this call. * Fabiola Messina - 11/17/2018 9:07 AM CDT Symptoms Describe your symptoms (if pain, include location): BP unusually high When did they start? Yesterday Additional comments (related to the above concern): Pt has high blood pressure, she has been taking her medications and it does not help, please advise. If a prescription is needed, patient would like it filled at the pharmacy listed in Meds & Orders. (Verify the pharmacy patient would like to use for this request is highlighted in blue in Pharmacy Selection under Meds & Orders) Is it okay to leave a detailed message on your voicemail? Yes (Advise caller that the PN call back number will end with [phone] or unknown) For urgent symptoms: Please route and transfer to: Triage Pool (high priority) For routine symptoms: Please route to: Triage Pool (only transfer if caller insists) documented in this encounter Plan of Treatment Upcoming Encounters Date Type Department Care Team (Late st Contact Info) Description 05/17/2024 2:30 PM COMPUTERIZED MILL MILL RECORDER Appointment [facility] [address] [place] [address] [place] [address] [place] [address] 05/25/2024 10:30 AM COMPUTERIZED MILL MILL RECORDER Appointment [facility] [address] [facility] [address] [address] [place] [address] 05/26/2024 1:00 PM COMPUTERIZED MILL MILL RECORDER Appointment Audiology at [facility] [address] [address] [address] [place] [phone] Robert Leiva AU.D. [address] [place] [address] 06/08/2024 8:15 AM CDT Appointment Pulmonary at [facility] [address] [address] [address] [place] [address] Neurock, Isadora Esteves, PRODUCTION ANALYST, ALMOND GRINDER [address] [place], [place] [id number] 11/22/2024 2:45 PM CDT Appointment Rheumatology at [address] [id number] Dakota Gould MD [address] [place], [place] [id number] documented as of this encounter Visit Diagnoses Not on filedocumented in this encounter Additional Health Concerns Infection Onset Date Last Indicated Resolved Time R/O COVID19 02/19/2022 02/19/2022 02/20/2022 3:39 AM COMPUTERIZED MILL MILL RECORDER R/O COVID19 02/17/2023 02/17/2023 02/17/2023 9:09 PM COMPUTERIZED MILL MILL RECORDER documented as of this encounter Care Teams Environmental Services Tech Relationship Specialty Start Date End Date Neida Aragon MD [address] [place] [address] ELIZABETH GREGG [address] PCP - General 12/11/11 documented as of this encounter
--- OUTSIDE RECORDS SUMMARY | 2024-05-07 16:13 | XMS_ITS | Clinical Summary ---
Author Organization [place] Address [address] [place] [address] Care Team Providers Care Motorboat Mechanic Name Role Phone [facility], [facility] Allergies Active Allergy Reactions Criticality Noted Date Comments Azithromycin Rash Medium 06/24/2013 Benzoin Rash Low 09/24/2012 Bupropion Other (See Comments) High 02/20/2011 Seizures Contrast Dye Anaphylaxis High 02/20/2011 Cephalexin 11/17/2018 Levofloxacin 07/24/2014 Adhesive Tape 11/17/2018 Tetracycline Anxiety Low 02/20/2011 Medications amitriptyline (ELAVIL) 50 MG tablet Take 100 mg by mouth At Bedtime Active butalbital-aspi rin-caffeine (FIORINAL) 50-325-40 MG per capsule Take 1 capsule by mouth every 4 hours as needed. Active cyclobenzaprine (FLEXERIL) 10 MG tablet Take 10 mg by mouth 3 times daily as needed. Active DULoxetine (CYMBALTA) 60 MG capsule Take 120 mg by mouth At Bedtime Active Furosemide (LASIX) 20 MG tablet Take 20 mg by mouth daily. Active levothyroxine (SYNTHROID) 125 MCG tablet Take 125 mcg by mouth daily. Active lisinopril (PRINIVIL,ZESTR IL) 20 MG tablet Take 20 mg by mouth At Bedtime Active promethazine (PHENERGAN) 25 MG tablet Take 12.5-25 mg by mouth every 4 hours as needed Active rizatriptan (MAXALT) 10 MG tablet Take 10 mg by mouth at onset of headache. May repeat in 2 hours if needed: max 2/day; average number of headaches monthly Active ValACYclovir (VALTREX) 1 GM tablet Take 2,000 mg by mouth every 12 hours as needed 2g q12h x 2 doses prn cold sores. Active atenolol (TENORMIN) 25 MG tablet Take 25 mg by mouth daily Active albuterol (PROAIR HFA, PROVENTIL HFA, VENTOLIN HFA) 108 (90 BASE) MCG/ACT inhaler Inhale 2 puffs into the lungs every 4 hours as needed Active BusPIRone HCl (BUSPAR PO) Take 10 mg by mouth 2 times daily Active clobetasol (TEMOVATE) 0.05 % cream Apply topically 2 times daily as needed Active CLONAZEPAM PO Take 0.5 mg by mouth 2 times daily as needed Active ESOMEPRAZOLE MAGNESIUM PO Take 20 mg by mouth 2 times daily (before meals) Active fluocinonide (LIDEX) 0.05 % cream Apply topically 2 times daily as needed Active guaiFENesin-cod eine (ROBITUSSIN AC) 100-10 MG/5ML SOLN Take 5 mLs by mouth every 4 hours as needed Active hydroxychloroqu ine (PLAQUENIL) 200 MG tablet Take 200 mg by mouth 2 times daily Active HYDROXYZINE HCL PO Take 25-50 mg by mouth every 6 hours as needed Active IBUPROFEN PO Take 400 mg by mouth as needed Active METHYLPHENIDATE HCL PO Take 5-15 mg by mouth 3 times daily as needed Active MODAFINIL PO Take 400 mg by mouth every morning Active ZOLPIDEM TARTRATE PO Take 5-10 mg by mouth nightly as needed Active predniSONE (DELTASONE) 20 MG tabletIndicatio ns:Pneumonia Take 3 tabs (60 mg) orally daily for 3 days, 2 tabs (40 mg) orally daily for 3 days, 1 tab (20 mg) orally daily for 3 days, then 1/2 tab (10 mg) orally for 3 days 20 tablet 0 4 Active ORDER FOR DMEIndications: Pneumonia Equipment being ordered: Other: Nebulizer Treatment Diagnosis: Pneumonia, bronchospasm 1 Units 0 4 Active Ondansetron (ZOFRAN ODT PO) Acti ve saccharomyces boulardii (FLORASTOR) 250 MG capsule Take 250 mg by mouth 2 times daily Active multivitamin, therapeutic (THERA-VIT) TABS Take 1 tablet by mouth daily Active oxyCODONE (ROXICODONE) 5 MG immediate release tablet Take 1-2 tablets (5-10 mg) by mouth every 6 hours as needed for moderate to severe pain 12 tablet 0 5 Active metoclopramide (REGLAN) 10 MG tablet Take 1 tablet (10 mg) by mouth 3 times daily as needed (Nausea or Vomiting) 20 tablet 0 5 Active albuterol (PROAIR HFA/PROVENTIL HFA/VENTOLIN HFA) 108 (90 Base) MCG/ACT inhaler Inhale 2 puffs into the lungs every 4 hours as needed for other (cough) 1 Inhaler 9 Active benzonatate (TESSALON) 200 MG capsule Take 1 capsule (200 mg) by mouth 3 times daily as needed for cough 15 capsule 9 Active albuterol (PROVENTIL) (2.5 MG/3ML) 0.083% neb solution Take 1 vial (2.5 mg) by nebulization every 4 hours as needed for shortness of breath / dyspnea or wheezing 75 mL 9 Active Active Problems Problem Noted Date Diagnosed Date Pneumonia 06/25/2013 Esophageal reflux 09/24/2012 Hypersomnia with sleep apnea 09/24/2012 Cerebral aneurysm 09/24/2012 Migraines 09/24/2012 Depressive disorder 09/24/2012 Chronic fatigue 09/24/2012 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 Adolescent Education Answer Date Record ed Getting School Help Needed Not on file 01/14 Comments No Sex and Gender Information Value Date Recorded Sex Assigned at Not on file Legal Sex Female 4:51 AM SENIOR GIS ANALYST Gender Identity Not on file Sexual Orientation Not on file Last Filed Vital Signs Vital Sign Reading Time Taken Comments Blood Pressure 116/57 11/25/2018 2:30 PM CDT Pulse 109 11/25/2018 2:30 PM CDT Temperature 36.6 C (97.8 F) 11/25/2018 11:39 AM CDT Respiratory Rate 20 11/25/2018 1:29 PM CDT Oxygen Saturation 98% 11/25/2018 2:30 PM CDT Inhaled Oxygen Concentration - - Weight 93 kg (205 lb) 11/17/2018 9:54 AM CDT Height 165.1 cm (5' 5) 11/17/2018 9:54 AM CDT Body Mass Index 34.11 11/17/2018 9:54 AM CDT Plan of Treatment Not on file Insurance [employer] [facility] Advance Directives For more information, please contact: [phone] * Full Code (Latest Code Status on File) Date Activated Date Inactivated Comments 07/01/2013 11:09 AM 11/17/2018 9:51 AM * Full Code Date Activated Date Inactivated Comments 06/24/2013 11:55 PM 07/01/2013 11:09 AM * Full Code Date Activated Date Inactivated Comments 03/07/2011 4:52 PM 03/08/2011 7:05 PM Care Teams Motorboat Mechanic Relationship Specialty Start Date End Date [facility] [address] [address] [facility] - General 02/14/11
--- OUTSIDE RECORDS SUMMARY | 2024-05-07 16:13 | XMS_ITS | Encounter Summary ---
Author Organization [facility] Address [address] [place] [address] Care Team Providers Care Infrastructure Technician Name Role Phone Neida Aragon MD Primary Care Provider Encounter Details Date Type Department Care Team (Late st Contact Info) Description 04/21/2024 E-Visit Specialty [facility] [address] Pulmonary Medicine [facility] [place] [address] Mycemperatrizt, [place] [address] Social History Tobacco Use Types Packs/Day Years Used Date Smoking Tobacco: Never Smokeless Tobacco: Never Alcohol Use Standard Drinks/Week Comments Not Currently 0 (1 standard drink = 0.6 oz pur e alcohol) PHQ-2 Answer Date Recorded PHQ-2 Score 0 03/29/2024 Sex and Gender Information Value Date Recorded Sex Assigned at Female 12/11/2023 10:34 PM CDT Gender Identity Female 12/11/2023 10:34 PM CDT Sexual Orientation Not on file documented as of this encounter Plan of Treatment Upcoming Encounters Date Type Department Care Team (Late st Contact Info) Description 05/17/2024 2:30 PM MANUFACTURING QUALITY TECHNICIAN Appointment [facility] Medicine [address] [place], [place] [id number] Neida Aragon MD [address] [place] [address] [place] [id number] 05/25/2024 10:30 AM MANUFACTURING QUALITY TECHNICIAN Appointment Specialty Center [address] Sleep Lab Beds [address] [place] [address] 05/26/2024 1:00 PM MANUFACTURING QUALITY TECHNICIAN Appointment Audiology at [facility] [address] [address] [address] [place] [address] Robert Leiva AU.D. [address] [place] [address] 06/08/2024 8:15 AM CDT Appointment Pulmonary at [facility] [address] [address] [address] [place] [address] Neurock, Isadora Esteves APRN, ASSOCIATE RESEARCH SCIENTIST [address] [place] [address] 11/22/2024 2:45 PM CDT Appointment Rheumatology at [facility] [address] [address] [address] [place] [address] Dakota Gould MD [address] [place] [address] documented as of this encounter Visit Diagnoses Not on filedocumented in this encounter Care Teams Infrastructure Technician Relationship Specialty Start Date End Date Neida Aragon MD [address] [place] [address] [place] [address] PCP - General 12/11/11 documented as of this encounter
--- OUTSIDE RECORDS SUMMARY | 2024-05-07 16:13 | XMS_ITS | Referral Summary ---
Author Organization [facility] Address [address] [place] [address] Phone Care Team Providers Care Veneer Marker Name Role Phone Neida Aragon MD Primary Care Provider [phone] Source Comments [employer] is fully rolled out on [employer]. 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 Today, c/o intermittent very [...] Body Mass Index 34.54 01/30/2015 10:09 AM IMMIGRATION CONSULTANT Plan of Treatment Not on file Insurance ELIZABETH SANDOVAL [id number] [facility] MEDICARE Care Teams Veneer Marker Relationship Specialty [place] [address] [place] [address] PCP - General Outside Provider 08/25/14
--- OUTSIDE RECORDS SUMMARY | 2024-05-07 16:13 | XMS_ITS | Encounter Summary ---
Author Organization [facility] Address [address] [place] [address] Care Team Providers Care News Cameraman Name Role Phone Neida Aragon MD Primary Care Provider Reason for Referral * Consult/Transfer Care (Routine) - New Request Specialty Diagnoses / Procedures Referred By Ross mckenna Referred To Contact Diagnoses Hearing loss, unspecified hearing loss type, [place] [address] [place] [address] Referral ID Status Reason Start Date Expiration Date V isits Requested Visits Authorized [id number] New Request 03/29/2024 06/28/2025 1 1 Scheduling Instructions Your clinician has recommended an appointment with [facility]. You may call [phone] to schedule your appointment. We suggest you call your health insurance company about your coverage and benefits for this appointment. Question Answer Appointment Urgency? Non-Urgent OGEOLOGIST * Therapies (Routine) - New Request Specialty Diagnoses / Procedures Referred By Ross mckenna Referred To Contact Diagnoses [place] [address] [place] [address] Referral ID Status Reason Start Date Expiration Date V isits Requested Visits Authorized [id number] New Request 03/29/2024 03/29/2025 1 1 Scheduling Instructions Your clinician has recommended an appointment with Rehabilitation Services. You can quickly schedule your appointment by signing in to your online account at [email or web address] or through the text message you may have received. You can also make an appointment by calling [phone]. We suggest you call your health insurance company about your coverage and benefits for this appointment. Question Answer Appointment Urgency? Non-Urgent Requested Services Evaluate and treat Reason for Visit Cognitive Eval Select Specific Cognitive Eval MOCA May use saline for irrigation or cleansing Yes dexamethasone use Yes May check glucose per protocol (see policy link below) or if patient has symptoms? Yes OGEOLOGIST * Procedure/Equipment (Routine) - Incomplete Specialty Diagnoses / Procedures Referred By Contac t Referred To Contact Diagnoses Encounter for screening mammogram for malignant neoplasm of breast Procedures MM Mammogram Screening Bilat W 3D [place] [address] [place] [address] Referral ID Status Reason Start Date Expiration Date V isits Requested Visits Authorized [id number] Incomplete 03/29/2024 06/28/2025 1 1 OGEOLOGIST Reason for Visit * Reason Comments Annual Exam Encounter Details Date Type Department Care Team (Latest Contact Info) Description 03/29/2024 2:30 PM HYDROGEOLOGIST Office Visit [facility] [address] [facility] [place] [address] [place] [address] [id number] Encounter for Medicare annual wellness exam (Primary Dx); Well adult exam; Cognitive complaints; Caregiver stress; Hormone replacement therapy (postmenopausal); Hearing loss, unspecified hearing loss type, unspecified laterality; Acquired hypothyroidism (HRC); Primary hyperparathyroidism (HRC); Adenoma of right adrenal gland; Dizziness; Orthostatic hypotension; Tachycardia; Hypovolemia; Osteopenia, unspecified location; Obstructive sleep apnea; Encounter for screening mammogram for malignant neoplasm of breast; Screening for colon cancer; Need for Tdap vaccination; Need for shingles vaccine; Need for influenza vaccination; Need for COVID-19 vaccine Social History Tobacco Use Types Packs/Day Years Used Date Smoking Tobacco: Never Smokeless Tobacco: Never Tobacco Cessation:Counseling Given: Not Answered Alcohol Use Standard Drinks/Week Comments Not Currently 0 (1 standard drink = 0.6 oz pur e alcohol) PHQ-2 Answer Date Recorded PHQ-2 Score 0 03/29/2024 Sex and Gender Information Value Date Recorded Sex Assigned at Female 12/11/2023 10:34 PM CDT Gender Identity Female 12/11/2023 10:34 PM CDT Sexual Orientation Not on file documented as of this encounter Last Filed Vital Signs Vital Sign Reading Time Taken Comments Blood Pressure 119/81 03/29/2024 2:20 PM HYDROGEOLOGIST Pulse 109 03/29/2024 2:20 PM HYDROGEOLOGIST Temperature - - Respiratory Rate - - Oxygen Saturation - - Inhaled Oxygen Concentration - - Weight 94.5 kg (208 lb 6.4 oz) 03/29/2024 2:20 P M HYDROGEOLOGIST Height 165.1 cm (5' 5) 03/29/2024 2:20 PM HYDROGEOLOGIST Body Mass Index 34.68 03/29/2024 2:20 PM HYDROGEOLOGIST documented in this encounter Patient Instructions * Patient Instructions* Neida Aragon MD - 03/29/2024 2:30 PM HYDROGEOLOGIST Images from the original note were not included. 1. I recommend a mammogram yearly - due now. Call [phone] for appointment. 2. I recommend colon cancer screening with FIT test yearly. 3. I recommend bone density scan in 2027. 4. To improve or maintain bone health, I recommend you take: 1. Calcium 1200 mg daily between what you get in your diet and supplementing the rest with calcium citrate. 2. Vitamin D3 1000 international units daily. 3. Engage in regular weight bearing exercise. 5. Some exercise advice...We recommend at least 150 minutes of aerobic exercise (walking, jogging, biking, swimming, etc.) and 2 days of strength training (lifting weights, using bands, yoga, pilates, gualberto chi, etc.) weekly. 6. Some dietary advice...Eat mostly vegetables, except for corn, peas, and potatoes. Eat more fruit. Eat whole grains, but not refined products. Eat more nuts, more yogurt, more fish. Don't worry about coffee because it's fine. On the other hand, avoid red meat, processed meats, refined grains, sweets and desserts, sugary beverages like sodas/juices, potato chips. And if you really want to get simple about it, remember good fats can make good carbs taste better. That means relying on olive oil, avocados or nuts to add flavor to grilled vegetables, whole-grain breads or fruits. The Mediterranean Diet is a model for healthy food intake - see below. 7. I recommend 7-9 hours of sleep per night. 8. Limit alcohol to 1 drink per day or 7 drinks per week. A serving of alcohol is 5 ounces of wine,12 ounces of beer, and 1 shot of hard liquor. 9. Dental health is important. Please see your dentist every 6-12 months. 10. Stop fludrocortisone as has not been effective. Let me know home blood pressures in a few weeks. 11. Please call the Endocrinology dept. at [phone] to schedule your appointment with Dr. Cao. 12. Please call the Audiology dept. at [phone] to schedule your appointment. 13. Please call Occupational Therapy at [phone] to schedule your appointment for cognitive evaluation and rehab. Annual Wellness Visit Summary Your care team is recommending the following tests, procedures or services. Some of these recommendations may not be fully covered by Medicare or your insurance. If you have questions, check with your insurance to determine coverage before completing these services. Health Maintenance Due Health Maintenance Due Topic Date Due HepB (1) Never done FIT Colon Cancer Screening Never done Zoster/Shingles (1 of 2) Never done DTaP/Tdap/Td (2 - Tdap) 2020 COVID-19 Vaccine (2023- season) Never done Influenza (1) 11/30/2023 Mammogram 03/26/2024 If your Medicare Welcome or Annual Wellness Visit is showing you are due in the above list, this will be updated after this visit. You had this completed today and are not due for another year. Thank you for coming in for your Medicare Wellness Visit. To make sure we are doing our best to meet your care needs, here are a few important reminders. We want to know your thoughts as we work together to create your care plan, including stopping and starting medications. When we work together on next steps, it's called shared decision making. If there is anything else you would like to discuss, please reach out or schedule a follow-up appointmentif needed. We are here to listen. We want to help you address any concerns you have about the cost of your medications. To find options for the most cost-effective medications near you, go to https://www.Ryzing/hp/pharmacy/drug-cost/index.html You can also find more information in this handout. Health care can be complicated. Sometimes, it can help to share your health information with your family or caregivers. (Caregivers can be friends as well as family.) How much you share is up to you.Here is a helpful link: [email or web address].Ryzing/blog/apjlcl-fmdj-yatju-benefits/ We care about nutrition, how much physical activity you get and how much stress, worry or sadness you have in your life. Please reach out to your care team if you have additional information to shareor would like more resources or support. Take charge -- steps to prevent falls at home Is your home fall-proof? Many household items can be hazards. For example, lamp or telephone cords can easily trip you up. Make sure they are safely out of your path and general walkways. Also, throwrugs can slide when you walk on them and set you off balance. You???re safer if rugs are secured toyour floors and carpeting is attached at the edges. Clear the way It???s important to ensure that your home is free of clutter and that you can move around with ease. These types of safety measures can help keep you from accidental falls and injuries. Falls are oneof the leading reasons for senior hospital admissions due to injuries which often result in permanent disabilities or . As a result, many senior home safety experts suggest against throw rugs asthey increase the risk of seniors having falls. Safety measures Use this safety checklist as you move through your home. Try to check off most or all of these precautions. If you cannot, take steps to ensure your health and safety! All rooms are well-lit and light switches are easily within your reach. Handrails are securely fastened on all stairways. Stairways are well-lit and step edges are clearly visible. Light switches are easy to reach and placed both at the top and bottom of stairwells. Doorways are wide enough to move through easily. All entryways are free of tripping hazards. Chairs and couches are easy to get in and out of. Furniture is well-arranged and easy to walk around. Furniture is strong enough to support you if you lean on or against it. Kitchen cupboards are easy for you to reach without having to stand on a chair. Your bed is easy to get into and out of. The pathway between your bedroom and bathroom is free of clutter. Closet shelves are easy for you to reach without having to stand on a chair. A bath mat or nonskid tread is secured in your bathtub and shower. Grab bars are securely fastened by your bathtub and toilet. Your toilet is easy for you to get on and off. Outside walkways and steps are in good repair and are slip-resistant. ?? 2002 [employer] P/SENIORS /#743387 Learning About Eating More Fruits and Vegetables What are some quick tips for eating more fruits and vegetables? We're all encouraged to eat more fruits and vegetables. Yet it can seem like one more chore on the daily to-do list. But you can add color and crunch to your meals--and lots of nutrition--with these quick tips. Brighten up your breakfast. Add sliced fruit or frozen berries to your yogurt, pancakes, or cereal. Blend fresh or frozen fruit, veggies, and yogurt with a little fruit juice, and you've got a tasty smoothie. Make your scrambled eggs a gourmet treat by adding onions, celery, and jones peppers. Bake up some bran muffins with grated carrots added into the mix. Make a livelier lunch. Jazz up tuna or chicken salad with apple chunks, celery, or grapes--or all of them! Add cucumbers, avocado slices, tomatoes, and lettuce to your sandwiches. Kick up the flavor of grilled cheese sandwiches with spinach and tomatoes. Puree some cooked carrots or squash to add to tomato soup. Add delicious veggies to dinner. Give more color and taste to salads. Stir in red cabbage, carrots, and jones peppers. Top salads with dried cranberries or raisins. [place] your salad with orange sections or strawberries. Keep a bag or two of frozen vegetables ready to pull out of the freezer for a side dish. Spice up spaghetti and meatballs with mushrooms and jones peppers. Roast vegetables like cauliflower or squash in the oven with olive oil to bring out their flavor. Season your veggie dish with herbs like basil and kendall and a splash of lemon juice and olive oil. Grab some healthy snacks on the go. Scoop up an apple, banana, or plum for a quick snack. Cut up raw fruits and veggies to keep in your fridge. Grapes, oranges, carrots, and celery are great choices. They'll be ready for a quick snack or an after- school treat. Dip raw vegetables in hummus or peanut butter. Keep dried fruit on hand for an easy take with you snack. Make something sweet--and healthy. Try baked apples or pears topped with cinnamon and honey for a delicious dessert. Make chocolate chip cookies even better with grated carrots added to the mix. Where can you learn more? 1. Go to https://www.Dartfish.[employer]/healthlibrary. 2. Enter F050 in the search box. Current as of: December 18, 2022 Content Version: 14.2 ?? 2023 [facility] [email or web address].com. Care instructions adapted under license by your healthcare professional. If you have questions about a medical condition or this instruction, always ask your healthcare professional. [employer] disclaims any warranty or liability for your use of this information. OGEOLOGIST documented in this encounter Progress Notes * Neida Aragon MD - 03/29/2024 2:30 PM CST Medicare Annual Wellness Visit Subjective/Historical: Annie Goodman is a 58 y.o. old female Chief Complaint Patient presents with Annual Exam Current concerns: She has decreased hearing by report. She says what a lot. She is on estradiol gel and prometrium through an outside clinic. She feels less hot. She might feel a little better on this. She started this 8 weeks ago. She has hypovolemia, orthostatic hypotension, tachycardia and dizziness but negative POTS testing. Her autonomic and peripheral neuropathy testing were both negative. Dr. Donis thinks she is hypovolemic. Symptoms did not really improve with drinking 1 gallon of water per day or taking sodium tablets (caused hypertension). She started fludrocortisone 0.1mg daily for past 2 months and has notnoticed any change in symptoms but resting blood pressure has increased to > 140/90. She no longer has hypertension and has stopped lisinopril. She has chronic brain fog, fibromyalgia. This has improved with ketamine treatment. She has seen OTin past and would like to see them again for cognitive rehab as she can be forgetful. She has myalgic encephalomyelitis. She has been evaluated by neurology, neuropsychology, psychiatryand [facility] in the past. I recommended OT [facility] in the past - she declinesnow. She sees Dr. Gould for SLE. Symptoms managed on hydroxychloroquine and methotrexate. Ketamine has helped with fibromyalgia pain. She uses phenergan prn for nausea related to ketamine. She was seen by Dr. Lundberg for PTSD, major depression and anxiety until she retired. She now sees sees JEAN-PIERRE Slade for psychiatric management now. She is taking Viibryd now and it's working reasonably well for her. She also uses ketamine infusion and dexedrine. She has been diagnosed with somatoform disorder through neuropsychology and neurology. She does not accept this diagnosis. She meditates regularly. She has hypothyroidism treated with levothyroxine. She takes it on empty stomach and away from vitamins. She started HRT 2 months ago. She has a right 3.6 cm adrenal nodule that had been followed by endocrinology. Last visit 2014. This is likely stable and benign based on imaging and lab testing in past but overnight dexamethasone suppression test abnormal with cortisol at 5. Followed by endocrinology. She has a small brain aneurysm. Stable on imaging 05/2022. She saw neurology in 06/2022. Recommend MRA in 3 years. She is no longer using CPAP as repeat sleep study showed mild NATALY in 2016. She is caring for her daughter who is disabled. Her does not help her. They eat out for each meal. They have a train control technician. She can access [employer] for grocery shopping. She is on disability. She has a train control technician that cleans house and does her laundry and shops for her. Her does not help around the house much. Patient sees dentist and eye doctor? yes Exercise? Not much Mammogram: 02/2023 Colon cancer screening: never DEXA: 09/2023, repeat in 2027 Last pap smear: 08/2009 History of abnormal pap smear: no History of STIs: no Contraception: hysterectomy Patient's last menstrual period was 02/18/2011. Advance Directives: No advance directives are on file. Plan future discussion of advance directives. Observed Vitals: BP 119/81 (BP Location: Left Arm, BP Cuff Size: Regular) Pulse (!) 109 Ht 5' 5 (1.651 m) Wt 208 lb 6.4 oz (94.5 kg) LMP 02/18/2011 BMI 34.68 kg/m?? Physical Exam: General Appearance: alert, well appearing, and in no apparent distress. Normal speech pattern today. Good historian. HEENT: lids normal, sclera clear, conjunctiva normal, and pupils equal round and reactive to light and oropharynx clear, ear canals clear, TMs normal, and no oral lesions Neck: no lymphadenopathy, no thyromegaly or nodules, and supple Heart: regular rate and rhythm and no murmurs, gallops or rubs Lungs: clear to auscultation and no wheezes, rales or rhonchi Abdomen: soft, nondistended, nontender, no palpable masses, and no organomegaly Breast: No skin changes, No dominant palpable mass, and No axillary lymphadenopathy Pelvic (Female): declined exam Extremities: no edema and normal pedal pulses Skin: no rashes or worrisome lesions Assessment/Plan Encounter for Medicare annual wellness exam Well adult exam Cognitive complaints She has brain fog, forgetfulness. She is open to seeing OT again for cognitive evaluation and rehab. - Occupational Therapy Caregiver stress Provided support. Hormone replacement therapy (postmenopausal) She started combined HRT through outside clinic 2 months ago. Hot flashes have improved. She will see if other symptoms improve or not over next several months. Hearing loss, unspecified hearing loss type, unspecified laterality - Audiology Consult-Adult/Peds Acquired hypothyroidism (HRC) TSH is in goal range on current levothyroxine dose after HRT start. Primary hyperparathyroidism (HRC) Adenoma of right adrenal gland Ca is 10.9. Due for f/u with Dr. Cao. Dizziness Orthostatic hypotension Tachycardia Hypovolemia No symptomatic improvement with fludrocortisone 0.1mg daily for past 2 months. Her resting blood pressures have increased. She will stop fludrocortisone and let me know if symptoms worsen and blood pressure readings in a few weeks. Osteopenia, unspecified location DEXA due in 2027. Obstructive sleep apnea Encounter for screening mammogram for malignant neoplasm of breast - MM Mammogram Screening Bilat W 3D Petey W CAD; Future Screening for colon cancer - FIT, OCCULT BLOOD, STOOL; Future Need for Tdap vaccination Need for shingles vaccine Need for influenza vaccination Need for COVID-19 vaccine Reviewed and declined. Counseling and education provided today includes proper nutrition and health habits, fall prevention, and for those items ordered above. See plan for future preventive services in Patient Instructions. Neida Aragon MD 03/29/2024, 6:31 PM OGEOLOGIST documented in this encounter Plan of Treatment Upcoming Encounters Date Type Department Care Team (Late st Contact Info) Description 05/17/2024 2:30 PM HYDROGEOLOGIST Appointment [facility] [address] [place] [address] Neida Aragon MD [address] [place] [address] [address] [place] [address] 05/25/2024 10:30 AM HYDROGEOLOGIST [facility]ointment [facility] [facility] [address] [place] [address] 05/26/2024 1:00 PM HYDROGEOLOGIST Appointment Audiology at [facility] [address] [facility] [address] [place] [id number] Robert Leiva AU.D. [address] [place] [address] 06/08/2024 8:15 AM CDT Appointment Pulmonary at [address] [address] [place] [address] Neurock, Isadora L, HEALTH COUNSELOR, EXTERIOR INTERIOR SPECIALIST [address] [place], [place] [address] 11/22/2024 2:45 PM CDT Appointment Rheumatology at [address] [id number] Dakota Gould MD [address] [place] [address] Scheduled Orders Name Type Priority Associated Diagnoses Orde r Schedule FIT, OCCULT BLOOD, STOOL Lab Routine Screening for colon cancer Expected: 03/29/2024, Expires: 03/29/2025 Scheduled Referrals Name Type Priority Associated Diagnoses Orde r Schedule Occupational Therapy Referral Routine Cognitive complaints Ordered: 03/29/2024 Audiology Consult-Adult/Peds Referral Routine Hearing loss, unspecified hearing loss type, unspecified laterality Ordered: 03/29/2024 documented as of this encounter Results * MM Mammogram Screening Bilat W 3D Petey W CAD (04/07/2024 1:04 PM HYDROGEOLOGIST) Anatomical Region Laterality Modality Breast Bilateral Mammography Impressions 04/07/2024 1:18 PM HYDROGEOLOGIST : ACR BI-RADS Category 1: Negative RECOMMENDATION: Follow Up Imaging in 12 months - Bilateral The results and recommendations of this examination will be communicated to the patient. Narrative 04/07/2024 1:18 PM HYDROGEOLOGIST MM MAMMOGRAM SCREENING BILAT W 3D PETEY W CAD performed on 04/07/24 FDA Accredited Facility: [place] [address] Compared to: 03/26/2023 MM Mammogram Screening Bilat W 3D Petey W CAD, 01/13/2019 MM Mammogram Screening Bilat W 3D Petey W CAD, and 09/13/2014 MM Mammogram Screening Bilat W CAD FINDINGS: Bilateral screening mammogram was performed with the assistance of Computer-Aided Detection and breast tomosynthesis. There are scattered areas of fibroglandular density. There is no radiographic evidence of malignancy. Neida Aragon MD [facility] documented in this encounter Visit Diagnoses Diagnosis Encounter for Medicare annual wellness exam- Primary Well adult exam Routine general medical examination at a health care facility Cognitive complaints Caregiver stress Other health problem within the family Hormone replacement therapy (postmenopausal) Need for prophylactic hormone replacement therapy (postmenopausal) Hearing loss, unspecified hearing loss type, unspecified laterality Acquired hypothyroidism (HRC) Unspecified hypothyroidism Primary hyperparathyroidism (HRC) Primary hyperparathyroidism Adenoma of right adrenal gland Dizziness Dizziness and giddiness Orthostatic hypotension Tachycardia Tachycardia, unspecified Hypovolemia Osteopenia, unspecified location Obstructive sleep apnea Obstructive sleep apnea (adult) (pediatric) Encounter for screening mammogram for malignant neoplasm of breast Other screening mammogram Screening for colon cancer Special screening for malignant neoplasms, colon Need for Tdap vaccination Need for prophylactic vaccination with combined [id number] (DTP) vaccine Need for shingles vaccine Need for prophylactic vaccination and inoculation against varicella Need for influenza vaccination Need for prophylactic vaccination and inoculation against influenza Need for COVID-19 vaccine Encounter for screening mammogram for malignant neoplasm of breast Other screening mammogram documented in this encounter Care Teams News Cameraman Relationship Specialty [place] [address] [place] [address] PCP - General 12/11/11 documented as of this encounter
--- OUTSIDE RECORDS SUMMARY | 2024-05-07 16:13 | XMS_ITS | Encounter Summary ---
Author Organization [facility] Address [address] [place] [address] Care Team Providers Care Service Center Manager Name Role Phone Neida Aragon MD Primary Care Provider Encounter Details Date Type Department Care Team (Late st Contact Info) Description 03/29/2024 3:20 PM HOME HEALTH RN Lab Visit [facility] [address] [place] [address] Systemic lupus erythematosus, unspecified SLE type, unspecified organ involvement status (HRC); Acquired hypothyroidism (HRC); Hypovolemia; Hypertension, unspecified type (HRC) Social History Tobacco Use Types Packs/Day Years [...] st Contact Info) Description 05/17/2024 2:30 PM HOME HEALTH RN Appointment [facility] [address] [place] [address] Neida Aragon MD [address] [place] [address] [place] [address] 05/25/2024 10:30 AM HOME HEALTH RN Appointment Specialty [place] [address] [facility] [address] [place] [address] 05/26/2024 1:00 PM HOME HEALTH RN Appointment Audiology at [facility] [address] [facility] [address] [place] [phone] Robert Leiva AU.D. [address] [place] [address] 06/08/2024 8:15 AM CDT Appointment Pulmonary at [facility] [address] [address] [address] [place] [address] Neurock, Isadora Esteves, HAIRPIECE STYLIST, SUPERVISOR MOLD SHOP 39[address] [place] [address] 11/22/2024 2:45 PM CDT Appointment Rheumatology at [facility] [address] [place] [address] [place] [address] Dakota Gould MD [address] [place] [address] documented as of this encounter Procedures Procedure Name Priority Date/Time Associated Diagnosis Comments CBC AND DIFFERENTIAL PANEL Routine 03/29/2024 3:24 PM HOME HEALTH RN Systemic lupus erythematosus, unspecified SLE type, unspecified organ involvement status (HRC) COMPLETE BLOOD COUNT-W/DIFF Routine 03/29/2024 3:24 PM HOME HEALTH RN Systemic lupus erythematosus, unspecified SLE type, unspecified organ involvement status (HRC) TSH, SENSITIVE Routine 03/29/2024 3:24 PM HOME HEALTH RN Acquired hypothyroidism (HRC) BASIC METABOLIC PANEL Routine 03/29/2024 3:24 PM HOME HEALTH RN Hypovolemia Hypertension, unspecified type (HRC) MAGNESIUM Routine 03/29/2024 3:24 PM HOME HEALTH RN Hypovolemia Hypertension, unspecified type (HRC) C-REACTIVE PROTEIN Routine 03/29/2024 3: 24 PM HOME HEALTH RN Systemic lupus erythematosus, unspecified SLE type, unspecified organ involvement status (HRC) AST Routine 03/29/2024 3:24 PM HOME HEALTH RN Systemic lupus erythematosus, unspecified SLE type, unspecified organ involvement status (HRC) documented in this encounter Results * (ABNORMAL) Complete Blood Count-W/Diff (03/29/2024 3:24 PM HOME HEALTH RN) WBC 7.8 3.5 - 10.5 x10(9)/L 03/29/2024 3:30 PM [facility] RBC 5.33(H) 3.90 - 5.03 x10(12)/L 03/29/2024 3:30 PM [facility] Hemoglobin 15.5 12.0 - 15.5 g/dL 03/29/2024 3:30 PM [facility] HCT 46.5(H) 34.9 - 44.5 % 03/29/2024 3:30 PM [facility] MCV 87.2 80.0 - 100.0 fL 03/29/2024 3:30 PM [facility] MCH 29.1 27.6 - 33.3 pg 03/29/2024 3:30 PM [facility] MCHC 33.3 31.5 - 35.2 g/dL 03/29/2024 3:30 PM [facility] RDW 12.5 11.9 - 15.5 % 03/29/2024 3:30 PM [facility] Platelets 316 150 - 450 x10(9)/L 03/29/2024 3:30 PM [facility] Automated NRBC 0 <=0 /100 WBC 03/29/2024 3:30 PM [facility] Neutrophil Absolute 5.6 1.7 - 7.0 10(9)/L 03/29/2024 3:30 PM [facility] Lymphocyte Absolute 1.6 1.0 - 4.8 10(9)/L 03/29/2024 3:30 PM [facility] Monocyte Absolute 0.5 0.2 - 0.9 10(9)/L 03/29/2024 3:30 PM [facility] Eosinophil Absolute 0.1 0.0 - 0.5 10(9)/L 03/29/2024 3:30 PM [facility] Basophil Absolute 0.1 0.0 - 0.3 10(9)/L 03/29/2024 3:30 PM [facility] Immature Granulocyte % 0.4 0.0 - 0.5 % 03/29/2024 3:30 PM [facility] Blood Venipuncture / Unknown 03/29/2024 3:24 PM HOME HEALTH RN 03/29/2024 3:24 PM HOME HEALTH RN Dakota Gould MD LAB_1 Performing Organization Address [facility]/ZIP Co de Phone Number [address] * Magnesium (03/29/2024 3:24 PM HOME HEALTH RN) [facility] Magnesium 2.1 1.6 - 2.6 mg/dL 03/29/2024 5:48 PM [facility] Blood Venipuncture / Unknown 03/29/2024 3:24 PM HOME HEALTH RN 03/29/2024 3:24 PM HOME HEALTH RN Neida Aragon MD LAB_1 Performing Organization Address [facility]/ZIP Co de Phone Number [facility] [address] * (ABNORMAL) Basic Metabolic Panel (03/29/2024 3:24 PM HOME HEALTH RN) Pathologist [facility] [place] Sodium 142 136 - 145 mmol/L 03/29/2024 5:48 PM [facility] Potassium 4.1 3.5 - 5.1 mmol/L 03/29/2024 5:48 PM [facility] Chloride 105 98 - 109 mmol/L 03/29/2024 5:48 PM [facility] CO2 28 20 - 29 mmol/L 03/29/2024 5:48 PM [facility] Anion Gap 9 6 - 16 mmol/L 03/29/2024 5:48 PM [facility] Calcium 10.9(H) 8.4 - 10.4 mg/dL 03/29/2024 5:48 PM [facility] BUN 16 7 - 26 mg/dL 03/29/2024 5:48 PM [facility] Creatinine 1.05(H) 0.55 - 1.02 mg/dL 03/29/2024 5:48 PM [facility] Glucose 135(H) 70 - 100 mg/dL 03/29/2024 5:48 PM [facility] Comment:The given reference range is for the fasting state. Non-fasting reference range for glucose is 70 - 180 mg/dL. GFR, Estimated >60 >60 mL/min/1.7 3m2 03/29/2024 5:48 PM [facility] Hours Fasting 0.1 8 - 12 Hours 03/29/2024 5:48 PM [facility] Comment:Lab unable to obtain patient's fasting status at time of specimen collection. Blood Venipuncture / Unknown 03/29/2024 3:24 PM HOME HEALTH RN 03/29/2024 3:24 PM HOME HEALTH RN Neida Aragon MD LAB_1 Performing Organization Address City/[facility]/ZIP Co de Phone Number [facility] [address] [place] [address], [facility] * TSH (03/29/2024 3:24 PM HOME HEALTH RN) TSH, Sensitive 1.21 0.30 - 4.50 uIU/mL 03/29/2024 8:19 PM HOME HEALTH RN [facility] Blood Venipuncture / Unknown 03/29/2024 3:24 PM HOME HEALTH RN 03/29/2024 3:24 PM HOME HEALTH RN Neida Aragon MD LAB_1 [facility] [address] [place], [place] [id number] [place] [address] * C-Reactive Protein (03/29/2024 3:24 PM HOME HEALTH RN) C-Reactive Protein 0.2 0.0 - 0.5 mg/dL 03/29/2024 5:48 PM HOME HEALTH RN [facility] Blood Venipuncture / Unknown 03/29/2024 3:24 PM HOME HEALTH RN 03/29/2024 3:24 PM HOME HEALTH RN Dakota Gould MD LAB_1 Performing Organization Address City/[facility] Co de Phone Number [facility] [address] [place] [phone] * AST (03/29/2024 3:24 PM HOME HEALTH RN) Pathologist [facility] [place] AST (SGOT) 36 10 - 40 U/L 03/29/2024 5:48 PM HOME HEALTH RN [facility] Blood Venipuncture / Unknown 03/29/2024 3:24 PM HOME HEALTH RN 03/29/2024 3:24 PM HOME HEALTH RN Dakota Gould MD LAB_1 Performing Organization Address [facility] de Phone Number [facility] [address] [place] [phone] documented in this encounter Visit Diagnoses Diagnosis Systemic lupus erythematosus, unspecified SLE type, unspecified organ involvement status (HRC) Acquired hypothyroidism (HRC) Unspecified hypothyroidism Hypovolemia Hypertension, unspecified type (HRC) documented in this encounter Care Teams Service Center Manager Relationship Specialty [place] [address] [place] [address] PCP - General 12/11/11 documented as of this encounter
--- OUTSIDE RECORDS SUMMARY | 2024-05-07 16:14 | XMS_ITS | Encounter Summary ---
Author Organization [facility] Address [address] [place] [address] Care Team Providers Care Social Sciences Professor Name Role Phone Neida Aragon MD Primary Care Provider Reason for Visit * Reason Onset Date Comments Video Visit 04/15/2024 Encounter Details Date Type Department Care Team (Late st Contact Info) Description 04/16/2024 1:30 PM MASH FILTER PRESS OPERATOR Telemedicine [facility] [address] [place], [place] [phone] Neida Aragon [place] [id number] [place] [address] [phone] Primary hypertension (HRC) (Primary Dx); Orthostatic hypotension; Tachycardia Social History Tobacco Use Types Packs/Day Years [...] on file documented as of this encounter Progress Notes * Neida Aragon MD - 04/16/2024 1:30 PM CST Subjective: Today's visit with Annie was conducted as a scheduled video visit. Subjective: Today's visit with Annie was conducted as a scheduled video visit. 58yo female with HTN, hypothyroidism, hyperparathyroidism, SLE, MDD, anxiety, PTSD, myalgic encephalomyelitis, fibromyalgia, NATALY, hypersomnia, obesity to discuss elevated blood pressures. She has stopped stimulants in past without improvement in blood pressure. Her blood pressure is higher in the morning around 140s-180s/70-80s and during day 130s/80s. No chest pain or pressure, dyspnea at rest, or LE edema. Dizziness and tachycardia comes and goes depending on how hard she is pushing self and stress levels. She has hypovolemia, orthostatic hypotension, tachycardia and dizziness but negative POTS testing. Her autonomic and peripheral neuropathy testing were both negative. Dr. Donis thinks she is hypovolemic. Symptoms did not really improve with drinking 1 gallon of water per day or taking sodium tablets (caused hypertension). She started fludrocortisone 0.1mg daily but blood pressure increased and she did not have improvement in symptoms. Objective: [facility] 02/18/2011 General: WNWD in NAD. Assessment/Plan: Primary hypertension (HRC) Orthostatic hypotension Tachycardia She has had elevated blood pressure readings in the morning recently. Blood pressures more normal in afternoon. She has a hx of hypertension treated with lisinopril 10mg daily - this was discontinuedas no longer needed last year. She has had intermittent dizziness, tachycardia that seems to be stress related now. We will restart lisinopril 10mg daily and recheck BMP in 2 weeks. She will let me know if blood pressure < 100/60 or > 200/110 (or go to ED if headaches, chest pain, new dyspnea). We could add metoprolol succinate 12.5-25mg daily for additional blood pressure control and tachycardia control. She will have home sleep study done to see if NATALY has returned. - lisinopril (ZESTRIL) 10 MG tablet; Take 1 Tablet (10 mg) by mouth daily. - Basic Metabolic Panel; Future Neida Aragon MD FILTER PRESS OPERATOR documented in this encounter Plan of Treatment Upcoming Encounters Date Type Department Care Team (Late st Contact Info) Description 05/17/2024 2:30 PM MASH FILTER PRESS OPERATOR Appointment [facility] [address] [place] [address] Neida Aragon MD [id number] [place] [address] 05/25/2024 10:30 AM MASH FILTER PRESS OPERATOR Appointment [facility] [address] [place] [address] 05/26/2024 1:00 PM MASH FILTER PRESS OPERATOR Appointment Audiology at [facility] [place] [address] [facility] [address] [place] [phone] Robert Leiva AU.D. [address] [place] [address] 06/08/2024 8:15 AM CDT Appointment Pulmonary at [address] [address] Neurock, Isadora L, PRODUCTION LAPPING MACHINE OPERATOR, MOTEL KEEPER [address] [place] [address] 11/22/2024 2:45 PM CDT Appointment Rheumatology at [address] [address] Dakota Gould MD [address] [place] [address] Scheduled Orders Name Type Priority Associated Diagnoses Orde r Schedule Basic Metabolic Panel Lab Routine Primary hypertension (HRC) Expected: 04/16/2024, Expires: 07/15/2024 documented as of this encounter Visit Diagnoses Diagnosis Primary hypertension (HRC)- Primary Unspecified essential hypertension Orthostatic hypotension Tachycardia Tachycardia, unspecified documented in this encounter Care Teams Social Sciences Professor Relationship Specialty Start Date End Date Neida Aragon MD [address] [place], [place] [address]VIEW ELIZABETH GREGG [address] PCP - General 12/11/11 documented as of this encounter
--- OUTSIDE RECORDS SUMMARY | 2024-05-07 16:14 | XMS_ITS | Encounter Summary ---
Author Organization [facility] Address [address] [place] [address] Care Team Providers Care Swine Extension Field Specialist Name Role Phone Neida Aragon MD Primary Care Provider Reason for Visit * Reason Onset Date Comments Refill 04/20/2024 Encounter Details Date Type Department Care Team (Late st Contact Info) Description 04/20/2024 Refill Rheumatology at [address] [place], [place] [phone] Dakota Gould MD [address] [place] [phone] Refill Social History Tobacco Use Types Packs/Day Years [...] as of this encounter Nursing Notes * Jhon Mcallister RN - 04/20/2024 10:22 AM CST Resending active Plaquenil prescription to new pharmacy. Renewed medication per medication refill standing order. Requested Prescriptions Signed Prescriptions Disp Refills hydroxychloroquine (PLAQUENIL) 200 MG tablet 180 Tablet 1 Sig: TAKE 1 TABLET TWICE A DAY FOR SYSTEMIC LUPUS ERYTHEMATOSUS Authorizing Provider: DAKOTA GOULD Ordering User: JHON MCALLISTER STATION ATTENDANT documented in this encounter Plan of Treatment Upcoming Encounters Date Type Department Care Team (Late st Contact Info) Description 05/17/2024 2:30 PM TUBE STATION ATTENDANT Appointment [facility] [address] [place] [address] [place] [address] [place] [address] 05/25/2024 10:30 AM TUBE STATION ATTENDANT Appointment [place] [address] [address] [place] [address] 05/26/2024 1:00 PM TUBE STATION ATTENDANT Appointment Audiology at [facility] [address] [place] [address] [place] [phone] Robert Leiva AU.D. [address] [place] [address] 06/08/2024 8:15 AM CDT Appointment Pulmonary at [address] [address] Neuro[place], Isadora Esteves, APPLICATION ASSISTANT, IN FLIGHT REFUELING CRAFTSMAN [address] [place] [address] 11/22/2024 2:45 PM CDT Appointment Rheumatology at [facility] [address] [place] [address] [place] [address] Dakota Gould MD [address] [place] [address] documented as of this encounter Visit Diagnoses Diagnosis Systemic lupus erythematosus, unspecified SLE type, unspecified organ involvement status (HRC) documented in this encounter Care Teams Swine Extension Field Specialist Relationship Specialty [place] [address] [place] [address] PCP - General 12/11/11 documented as of this encounter
--- OUTSIDE RECORDS SUMMARY | 2024-05-07 16:14 | XMS_ITS | Clinical Summary ---
Author Organization [facility] Address [address] [address] Care Team Providers Care Rotogravure Press Operator Name Role Phone Neida Aragon MD Primary Care Provider Source Comments You are receiving this document as you are listed as the primary care provider,follow-up provider, or the patient has been referred to you for consultation.This is in compliance with the Medicare and[facility]centive [facility],which states Providers who transition their patient to another setting of careor provider of care or refers their patient to another provider of care shouldprovide summary care record for each transition of care or referral. [email or web address] Allergies Active Allergy Reactions Criticality Noted Date Comments Adhesive Itching,Rash Medium 04/21/2023 Ziopatch adhesive Azithromycin Rash High 05/08/2013 Bacitracin Other, see comments 02/03/2015 Positive (+) skin patch test Benzalkonium Chloride Other, see comments 02/03 Positive (+) skin patch test Benzoin Rash Medium 03/18/2011 Contact dermatitis Bupropion Seizures High 2007 Cananga Oil (Ylang-Ylang) Other, see comments 02/03/2015 Cephalexin 11/17/2018 Chlorhexidine Rash Medium 03/01/2015 Allergic on skin testing Lavender Oil Other, see comments 02/03/2015 Doubtful Positive (+) Skin Patch Test Levofloxacin Other, see comments Medium 10/08/2013 Joint pain Neomycin Rash Medium 03/01/2015 Allergic on patch testing Peppermint Oil Other, see comments 02/03/2015 Positive (+) skin patch test Propolis Other, see comments 02/03/2015 Positive (+) skin patch test Review Contrast Media Anaphylaxis High 2007 Pt denies having any contrast reaction. Has had multiple CT and MRI exams with contrast. Tea Tree Oil Other, see comments 02/03/2015 Doubtful Positive (+) Skin Patch Test Tetracycline Other, see comments Low 2007 anxiety Wound Dressing Adhesive Rash Low 07/08/2014 Also happened with ziopatch Medications Medication Sig Dispensed Refills Start Date End Date Status Multiple Vitamins-Minerals (MULTIVITAL) Take 2 Tabs by mouth two times a day. 7 Active Vitamin D-Vitamin K (VITAMIN K2-VITAMIN D3) 45-2000 MCG-UNIT CAPS Take 1 Tab by mouth two times a day. 0 7 Active ibuprofen (MOTRIN) 400 MG tablet Take 1 Tablet (400 mg) by mouth every 6 hours as needed for Pain. Active Prenat Vit-Fe Gly Xnh-ZQ-Sdinp (ENBRACE HR) CAPS Take 1 Capsule by mouth daily. 2 Active vilazodone (VIIBRYD) 40 MG tablet Take 1 Tablet (40 mg) by mouth daily as needed. 2 Active levothyroxine (SYNTHROID) 125 MCG tabletIndications:A cquired hypothyroidism (HRC) TAKE 1 TABLET 6 TIMES A WEEK AND ONE-HALF (1/2) TABLET ONCE EVERY WEEK 90 Tablet 3 4 Active ketoconazole (NIZORAL) 2 % shampoo Apply topically daily as needed. Apply to scalp and/or body, lather, wait 3-5 minutes, rinse 120 mL 11 4 Active triamcinolone acetonide (KENALOG) 0.1 % ointment Apply bid x 1 week to aa on arms. 30 g 1 4 Active fluocinonide (LIDEX) 0.05 % creamIndications:De rmatitis Apply to areas of skin rash once daily as needed Indications: Skin Inflammation 30 g 2 4 Active methotrexate 2.5 MG tablet Take 3 Tablets (7.5 mg) by mouth once every week. 39 Tablet 3 4 Active hydrOXYzine HCl (ATARAX) 25 MG tablet Take 1-2 Tablets (25-50 mg) by mouth daily as needed. 4 Active Calcium 280 MG TABS Calcium magenesium and zinc Active promethazine (PHENERGAN) 25 MG tabletIndications:N ausea Take 1 Tablet (25 mg) by mouth every 8 hours as needed for Nausea. 20 Tablet 4 Active progesterone (PROMETRIUM) 100 MG capsule Take 1 Capsule (100 mg) by mouth daily at bedtime. 4 Active Estradiol 0.25 MG/0.25GM GEL Apply to skin. 4 Active lisinopril (ZESTRIL) 10 MG tabletIndications:P rimary hypertension (HRC) Take 1 Tablet (10 mg) by mouth daily. 5 04/16/19 26 Active hydroxychloroquine (PLAQUENIL) 200 MG tabletIndications:S ystemic lupus erythematosus, unspecified SLE type, unspecified organ involvement status (HRC) TAKE 1 TABLET TWICE A DAY FOR SYSTEMIC LUPUS ERYTHEMATOSUS 180 Tablet 1 5 Active hydroxychloroquine (PLAQUENIL) 200 MG tabletIndications:S ystemic lupus erythematosus, unspecified SLE type, unspecified organ involvement status (HRC) TAKE 1 TABLET TWICE A DAY FOR SYSTEMIC LUPUS ERYTHEMATOSUS 180 Tablet 3 4 04/20/19 25 Discontinu ed(*Med change OR same med OR reorder, new dose/direc tions) Active Problems Problem Noted Date Diagnosed Date Hormone replacement therapy (postmenopausal) Caregiver stress 03/29/2024 Cognitive complaints 03/29/2024 Osteopenia 01/26/2024 Orthostatic hypotension 12/05/2023 Tachycardia 12/05/2023 History of genetic counseling 10/03/2023 Overview (10/03/2023): Negative genetic testing in 09/2023. Vasovagal syncope 05/22/2023 Inflammatory arthritis, osteoarthritis 1 Primary hyperparathyroidism 10/19/2020 Posttraumatic stress disorder 09/18/2020 Fibromyalgia 06/23/2019 nursing home current use of therapeutic drug 2019 Systemic lupus erythematosus 03/22/2019 Chronic pain syndrome 03/22/2019 Multiple joint pain 03/22/2019 Rosacea 07/17/2015 Herpes labialis 09/13/2014 Neuropsychiatric disorder 07/01/2014 Overview (11/03/2015): Neuropsychiatric testing in 05/[address] Mobley. Results show abnormal testing that are explicable on a nonorganic basis and not due to anoxic encephalopathy from May 2013. Her cognitive efficiency is hindered by psychiatric disorder of severe magnitude. Suspect Cluster B disorder. Repeat neurpsych testing 06/2015 was abnormal as well. Her cognitive limitations appear to be falsely abnormal from an organic standpoint...By themselves, the current invalid test results cannot support of refute organic contribution to the presenting problems. However, in the context of the overall history, prior neuropsychological assessment, and comprehensive physical work-ups with nor indication of organic causes, the best explanation comes from nonorganic, mental health factors. The overall picture is one of chronic emotional distress that provokes responses of denial, suppression and somatization. See Media tab. Drug-induced photosensitivity 10/24/2013 Pulmonary nodule 07/08/2013 Overview (09/20/2016): No further work-up needed. Reticular erythematous mucinosis 06/21/2013 Obstructive sleep apnea 08/28/2011 Overview (11/20/2016): Patient has mild NATALY on retest in 2015. No CPAP required. ; Obstructive sleep apnea (adult) (pediatric) Cerebral aneurysm, nonruptured 07/24/2011 Overview (06/12/2023): Stable on CTA head 05/2022. Repeat MRA brain in 2025. No findings of aneurysm on CTA head at [facility] 03/2023. Acquired hypothyroidism 01/10/2009 Obesity 01/10/2009 Hypertension 08/29/2008 Major depressive disorder, single episode 2008 Chronic fatigue syndrome 08/29/2008 Carpal tunnel syndrome 08/29/2008 Overview (09/18/2020): Bilateral at wrists Cervical spondylosis 08/29/2008 Overview (09/18/2020): Mild central stenosis and bilateral foraminal narrowing at C5-C6 (MRI in 10/03) Adrenal adenoma Overview (01/20/2019): Right 3.6 cm in 2015 and non-functioning on labs. Per Dr. Carvalho in 2014, no further follow-up needed. Idiopathic hypersomnia Somatoform disorder Overview (05/21/2016): diagnosed by neurology, neuropsych testing Resolved Problems Problem Noted Date Diagnosed Date Resolved Date Hypercalcemia 01/26/2024 01/27/2024 Orthostatic hypotension 05/22/202305/29 Hyperlipidemia 11/16/2018 09/18/2020 Pruritus 06/21/2013 09/20/2016 Excoriation 06/21/2013 12/20/2013 Hypersomnia 08/28/2011 05/21/2016 Overview (11/20/2016): Hypersomnia, unspecified Menorrhagia 02/20/2011 04/19/2011 Esophageal reflux 09/01/2010 09/20/2016 Overview (11/20/2016): LW Modifier: EGD done 09/2008 ; Gastroesophageal Reflux Disease Lipoma 03/10/2009 08/16/2013 Overview (11/20/2016): LW Modifier: L shoulder, elbow- excised ; Lipoma NOS Myasthenia gravis without exacerbation 01/10/2009 03/25/2023 Overview (11/20/2016): Normal RUE EMG - note from [facility] 05/04/2012 reviewed. EMG results argue against myasthenia gravis and Lamber-Eaton myasthenic syndrome. 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 08/29/2008 03/25/2023 IFG (impaired fasting glucose) 09/18/2020 Encounters Date Type Department Care Team Description 05/07/2024 Nurse Triage [place] [phone] Neida Aragon MD FORGETFULNESS 04/21/2024 [facility] Pulmonary Medicine [address] [place] [address] Mychart, Generic Provider 04/20/2024 Refill Rheumatology at [facility] [address] [place] [address] Dakota Gould MD Refill 04/16/2024 1:30 PM CLAY PREPARATION SUPERVISOR Telemedicine [facility] [address] [place] [address] Neida Aragon MD Primary hypertension (HRC) (Primary Dx); Orthostatic hypotension; Tachycardia 04/16/2024 Notes/Orders [facility] [address] [place] [address] Neida Aragon MD NATALY (obstructive sleep apnea) (Primary Dx) 04/15/2024 Nurse Triage [facility] [address] [place] [id number] Neida Aragon MD Follow Up Sleep Apnea 04/07/2024 1:00 PM CLAY PREPARATION SUPERVISOR [facility]illary [facility] [place] [address] [address] [address] [place] [address] Neida Aragon MD Encounter for screening mammogram for malignant neoplasm of breast 03/29/2024 3:20 PM CLAY PREPARATION SUPERVISOR Lab Visit [facility] [address] [place] [phone] Systemic lupus erythematosus, unspecified SLE type, unspecified organ involvement status (HRC); Acquired hypothyroidism (HRC); Hypovolemia; Hypertension, unspecified type (HRC) 03/29/2024 2:30 PM CLAY PREPARATION SUPERVISOR Office Visit [facility] [address] [place] [phone] Neida Aragon MD Encounter for Medicare annual wellness exam (Primary [...] for influenza vaccination; Need for COVID-19 vaccine from Last 3 Months Immunizations Name Administration Dates Next Due Influenza LAIV (Nasal, 2-49 yrs) 02/23/2010,11/29 Influenza LAIV3 2-49 years (Flumist) 02/23/2010 Influenza, Unspecified Formulation 12/12/2008 TDAP (ADACEL) 2010 Td 2007 Family History Medical History Relation Name Comments Mental Disorder Father unknown Cancer, Lung Mother smoker Drug Abuse Brother murdered Brother Cancer, Breast Cousin Remy Cancer, Kidney Maternal Grandfather Cancer, Pancreatic Maternal Grandfather Cancer, Prostate Maternal Grandfather Rheum Arthritis Maternal Grandfather Cancer, Breast Maternal Grandmother Rosalba br ca 70's Coronary Artery Disease Maternal Grandmother Rosalba MS DVT/PE Maternal Grandmother Rosalba Diabetes Maternal Grandmother Rosalba Hypertension Maternal Grandmother Rosalba Thyroid Disorder Maternal Grandmother Rosalba Cancer, Colon Negative Family History fat her did not have this Cancer, Ovary Negative Family History Colon Polyps Negative Family History Relation Name Status Comments Father unknown not much known about him Mother Brother (Age 27) substance abuse Cousin Remy Alive Maternal Aunt Maternal Grandfather Maternal Grandmother Rosalba Paternal Grandfather Paternal Grandmother Social History Tobacco Use Types Packs/Day Years [...] PM CDT Sexual Orientation Not on file Last Filed Vital Signs Vital Sign Reading Time Taken Comments Blood Pressure 119/81 03/29/2024 2:20 PM CLAY PREPARATION SUPERVISOR Pulse 109 03/29/2024 2:20 PM CLAY PREPARATION SUPERVISOR Temperature 37.1 C (98.7 F) 02/17/2023 9:38 AM CLAY PREPARATION SUPERVISOR Respiratory Rate 14 07/17/2023 12:55 PM CDT Oxygen Saturation 96% 08/06/2023 1:32 PM CDT Inhaled Oxygen Concentration - - Weight 94.5 kg (208 lb 6.4 oz) 03/29/2024 2:20 P M CLAY PREPARATION SUPERVISOR Height 165.1 cm (5' 5) 03/29/2024 2:20 PM CLAY PREPARATION SUPERVISOR Body Mass Index 34.68 03/29/2024 2:20 PM CLAY PREPARATION SUPERVISOR Plan of Treatment Upcoming Encounters Date Type Department Care Team (Late st Contact Info) Description 05/17/2024 2:30 PM CLAY PREPARATION SUPERVISOR Appointment [facility] [address] [place] [address] [place]ida Aragon [place] [id number] [place] [phone] 05/25/2024 10:30 AM CLAY PREPARATION SUPERVISOR Appointment [facility] [place] [address] [facility] [address] [place] [address] 05/26/2024 1:00 PM CLAY PREPARATION SUPERVISOR Appointment Audiology at [facility] [address] [facility] [address] [place] [phone] Robert Leiva AU.D. [address] [place] [address] 06/08/2024 8:15 AM CDT Appointment Pulmonary at [facility] [address] [place] [address] [place] [address] Neurock, Isadora Esteves, JAVASCRIPT UI DEVELOPER, NON GARMENT SEWING MACHINE OPERATOR [address] [place] [address] 11/22/2024 2:45 PM CDT Appointment Rheumatology at [facility] [address] [address] Dakota Gould MD [address] [place] [phone] Health Maintenance Due Date Last Done Comments HepB (1) 1984 FIT Colon Cancer Screening 2009 Zoster/Shingles (1 of 2) 09/01/2015 DTaP/Tdap/Td (2 - Tdap) 2020 2010, 08/30 COVID-19 Vaccine ( season) 2023 Influenza (#1) 2023 03/27/2012, 01/30, 02/23/2010, Additional history exists Prediabetes: HGBA1C 06/11/2024 06/12/2023, 03/26/2023, 02/18/2022, Additional history exists Medicare Annual Wellness Visit 03/29/2025 03/29/2024, 03/25/2023 Mammogram 04/07/2025 04/07/2024, 03/01, 01/13/2019, Additional history exists Dexa 10/22/2027 10/22/2023, 0909/2020 (Completed) Cholesterol 03/26/2028 03/26/2023, 01/30, 09/14/2020, Additional history exists HIV Screening (Preventive Services) Completed 06/12/2015 Hep C Screening (Preventive Services) Completed 06/14/2019 HepA Aged Out No longer eligi ble based on patient's age to complete this topic Hib Aged Out No longer eligi ble based on patient's age to complete this topic IPV (Polio) Aged Out No longer eligi ble based on patient's age to complete this topic MCV4 Aged Out No longer eligi ble based on patient's age to complete this topic Pneumococcal Aged Out No longer eligi ble based on patient's age to complete this topic Procedures Procedure Name Priority Date/Time Associated Diagnosis Comments MM MAMMOGRAM SCREENING BILAT W 3D PETEY W CAD Routine 04/07/2024 1:04 PM CLAY PREPARATION SUPERVISOR Encounter for screening mammogram for malignant neoplasm of breast COMPLETE BLOOD COUNT-W/DIFF Routine 03/29/2024 3:24 PM CLAY PREPARATION SUPERVISOR Systemic lupus erythematosus, unspecified SLE type, unspecified organ involvement status (HRC) MAGNESIUM Routine 03/29/2024 3:24 PM CLAY PREPARATION SUPERVISOR Hypovolemia Hypertension, unspecified type (HRC) BASIC METABOLIC PANEL Routine 03/29/2024 3:24 PM CLAY PREPARATION SUPERVISOR Hypovolemia Hypertension, unspecified type (HRC) TSH, SENSITIVE Routine 03/29/2024 3:24 PM CLAY PREPARATION SUPERVISOR Acquired hypothyroidism (HRC) C-REACTIVE PROTEIN Routine 03/29/2024 3: 24 PM CLAY PREPARATION SUPERVISOR Systemic lupus erythematosus, unspecified SLE type, unspecified organ involvement status (HRC) CBC AND DIFFERENTIAL PANEL Routine 03/29/2024 3:24 PM CLAY PREPARATION SUPERVISOR Systemic lupus erythematosus, unspecified SLE type, unspecified organ involvement status (HRC) AST Routine 03/29/2024 3:24 PM CLAY PREPARATION SUPERVISOR Systemic lupus erythematosus, unspecified SLE type, unspecified organ involvement status (HRC) DXA BONE DENSITY SPINE/HIP/FOREARM Routine 10/22/2023 3:12 PM CDT Hyperparathyroidism (HRC) HGB A1C Routine 06/12/2023 12:41 PM CDT Nocturia LIPID PANEL & DIRECT LDL (IF NEEDED) Routine 03/26/2023 11:16 AM CLAY PREPARATION SUPERVISOR Screening cholesterol level HEPATITIS C ANTIBODY, WITH REFLEX Routine 06/14/2019 2:37 PM CDT Systemic lupus erythematosus, unspecified SLE type, unspecified organ involvement status (HRC) HIV-1 P24 AND HIV-1/HIV-2 ANTIBODIES Routine 06/12/2015 9:40 AM CDT Mild cognitive impairment with memory loss from Last 3 Months or Most Recently Relevant to Health Maintenance Results * MM Mammogram Screening Bilat W 3D Petey W CAD (04/07/2024 1:04 PM CLAY PREPARATION SUPERVISOR) Anatomical Region Laterality Modality Breast Bilateral Mammography Impressions 04/07/2024 1:18 PM CLAY PREPARATION SUPERVISOR : ACR BI-RADS Category 1: Negative RECOMMENDATION: Follow Up Imaging in 12 months - Bilateral The results and recommendations of this examination will be communicated to the patient. Narrative 04/07/2024 1:18 PM CLAY PREPARATION SUPERVISOR MM MAMMOGRAM SCREENING BILAT W 3D PETEY W CAD performed on 04/07/24 [facility] Accredited Facility: [place] [address] Compared to: 03/26/2023 MM Mammogram Screening Bilat W 3D Petey W CAD, 01/13/2019 MM Mammogram Screening Bilat W 3D Petey W CAD, and 09/13/2014 MM Mammogram Screening Bilat W CAD FINDINGS: Bilateral screening mammogram was performed with the assistance of Computer-Aided Detection and breast tomosynthesis. There are scattered areas of fibroglandular density. There is no radiographic evidence of malignancy. Neida Aragon MD RAD ZAHRA * (ABNORMAL) Complete Blood Count-W/Diff (03/29/2024 3:24 PM CLAY PREPARATION SUPERVISOR) WBC 7.8 3.5 - 10.5 x10(9)/L 03/29/2024 3:[address] [facility] RBC 5.33(H) 3.90 - 5.03 x10(12)/L 03/29/2024 3:[address] [facility] Hemoglobin 15.5 12.0 - 15.5 g/dL 03/29/2024 3:[address] [facility] HCT 46.5(H) 34.9 - 44.5 % 03/29/2024 3:[address] [facility] MCV 87.2 80.0 - 100.0 fL 03/29/2024 3:[address] [facility] MCH 29.1 27.6 - 33.3 pg 03/29/2024 3:[address] [facility] MCHC 33.3 31.5 - 35.2 g/dL 03/29/2024 3:[address] [facility] RDW 12.5 11.9 - 15.5 % 03/29/2024 3:[address] [facility] Platelets 316 150 - 450 x10(9)/L 03/29/2024 3:[address] [facility] Automated NRBC 0 <=0 /100 WBC 03/29/2024 3:[address] [facility] Neutrophil Absolute 5.6 1.7 - 7.0 10(9)/L 03/29/2024 3:[address] [facility] Lymphocyte Absolute 1.6 1.0 - 4.8 10(9)/L 03/29/2024 3:[address] [facility] Monocyte Absolute 0.5 0.2 - 0.9 10(9)/L 03/29/2024 3:[address] [facility] Eosinophil Absolute 0.1 0.0 - 0.5 10(9)/L 03/29/2024 3:[address] [facility] Basophil Absolute 0.1 0.0 - 0.3 10(9)/L 03/29/2024 3:[address] [facility] Immature Granulocyte % 0.4 0.0 - 0.5 % 03/29/2024 3:[address] [facility] Blood Venipuncture / Unknown 03/29/2024 3:24 PM CLAY PREPARATION SUPERVISOR 03/29/2024 3:24 PM CLAY PREPARATION SUPERVISOR Dakota Gould MD LAB_1 Performing Organization Address [facility] [[email or web address]] Co de Phone Number [facility] [address] [place] [phone] * TSH (03/29/2024 3:24 PM CLAY PREPARATION SUPERVISOR) [facility] TSH, Sensitive 1.21 0.30 - 4.50 uIU/mL 03/29/2024 8:19 PM CLAY PREPARATION SUPERVISOR [facility] Blood Venipuncture / Unknown 03/29/2024 3:24 PM CLAY PREPARATION SUPERVISOR 03/29/2024 3:24 PM CLAY PREPARATION SUPERVISOR Neida Aragon MD LAB_1 [facility] [address] [place] [address], [facility] * (ABNORMAL) Basic Metabolic Panel (03/29/2024 3:24 PM CLAY PREPARATION SUPERVISOR) [facility] Sodium 142 136 - 145 mmol/L 03/29/2024 5:[address] [facility] Potassium 4.1 3.5 - 5.1 mmol/L 03/29/2024 5:[address] [facility] Chloride 105 98 - 109 mmol/L 03/29/2024 5:[address] [facility] CO2 28 20 - 29 mmol/L 03/29/2024 5:[address] [facility] Anion Gap 9 6 - 16 mmol/L 03/29/2024 5:[address] [facility] Calcium 10.9(H) 8.4 - 10.4 mg/dL 03/29/2024 5:[address] [facility] BUN 16 7 - 26 mg/dL 03/29/2024 5:[address] [facility] Creatinine 1.05(H) 0.55 - 1.02 mg/dL 03/29/2024 5:[address] [facility] Glucose 135(H) 70 - 100 mg/dL 03/29/2024 5:[address] [facility] Comment:The given reference range is for the fasting state. Non-fasting reference range for glucose is 70 - 180 mg/dL. GFR, Estimated >60 >60 mL/min/1.7 3m2 03/29/2024 5:[address] [facility] Hours Fasting 0.1 8 - 12 Hours 03/29/2024 5:[address] [facility] Comment:Lab unable to obtain patient's fasting status at time of specimen collection. Blood Venipuncture / Unknown 03/29/2024 3:24 PM CLAY PREPARATION SUPERVISOR 03/29/2024 3:24 PM CLAY PREPARATION SUPERVISOR Neida Aragon MD LAB_1 [facility] [address] [place] [address], [place] * Magnesium (03/29/2024 3:24 PM CLAY PREPARATION SUPERVISOR) [facility] Magnesium 2.1 1.6 - 2.6 mg/dL 03/29/2024 5:48 PM CLAY PREPARATION SUPERVISOR [facility] Blood Venipuncture / Unknown 03/29/2024 3:24 PM CLAY PREPARATION SUPERVISOR 03/29/2024 3:24 PM CLAY PREPARATION SUPERVISOR Neida Aragon MD LAB_1 Performing Organization Address [facility] [[email or web address]] Co de Phone Number [facility] [phone] [place] [address] * C-Reactive Protein (03/29/2024 3:24 PM CLAY PREPARATION SUPERVISOR) [facility] C-Reactive Protein 0.2 0.0 - 0.5 mg/dL 03/29/2024 5:48 PM CLAY PREPARATION SUPERVISOR [facility] Blood Venipuncture / Unknown 03/29/2024 3:24 PM CLAY PREPARATION SUPERVISOR 03/29/2024 3:24 PM CLAY PREPARATION SUPERVISOR Dakota Gould MD LAB_1 Performing Organization Address [facility] [[email or web address]] Co de Phone Number [facility] [address] [place] [address] * AST (03/29/2024 3:24 PM CLAY PREPARATION SUPERVISOR) [facility] AST (SGOT) 36 10 - 40 U/L 03/29/2024 5:48 PM CLAY PREPARATION SUPERVISOR [facility] Blood Venipuncture / Unknown 03/29/2024 3:24 PM CLAY PREPARATION SUPERVISOR 03/29/2024 3:24 PM CLAY PREPARATION SUPERVISOR Dakota Gould MD LAB_1 Performing Organization Address [facility] de Phone Number [facility] [id number] [place] [address] * DXA Bone Density Spine/Hip/Forearm (10/22/2023 3:12 PM CDT) [facility] DXA Lumbar Spine Bone Mineral Density 1.047 gm/cm2 EXTERNAL RESULTS DXA Lumbar Spine T-Score 0.0 EXTERNAL RESULTS DXA Lumbar Spine Z-Score 1.3 EXTERNAL RESULTS DXA Hip Left Bone Mineral Density 0.926 gm/cm2 EXTERNAL RESULTS DXA Hip Left T-Score -0.1 EXTERNAL RESULTS DXA Hip Left Z-Score 0.7 EXTERNAL RESULTS DXA Femur Left Bone Mineral Density 0.743 gm/cm2 EXTERNAL RESULTS DXA Femur Left T-Score -1.0 EXTERNAL RESULTS DXA Femur Left Z-Score 0.2 EXTERNAL RESULTS DXA Forearm Bone Mineral Density 0.588 gm/cm2 EXTERNAL RESULTS DXA Forearm T-Score -1.8 EXTERNAL RESULTS DXA Forearm Z-Score -0.6 EXTERNAL RESULTS % Change Spine -3.9 % EXTER NAL RESULTS % Change Left Hip (Total) -5.2 % EXTERNAL RESULTS % Change Forearm -7.7 % EXTERNAL RESULTS Anatomical Region Laterality Modality Lower Extremity, Upper Extre mity, Spine, Hip, L-Spine, Forearm Radiographic Imaging Narrative 10/22/2023 4:12 PM CDT Table formatting from the original result was not included. Patient Name: Annie Goodman Densitometer: Funderbeam W Appt Dept/Resource: [facility] Density [facility] Demographics Age: 58 y.o. Gender: Female Height: 5' 5 (1.651 m) Height at age 25: 5.6 Weight: 202 lb (91.6 kg) Race: Medical/Surgical History Menstrual periods: None Age of menopause: 1 Able to stand from a chair easily without use of the arms?: Yes, easily How many falls indoors/outdoors within the last 12 months?: 1 History of fractures in parents: No History of previous fractures?: No Hip replacement?: No Oral cortisone or steroid medication for more than 3 months?: No Currently or have taken medications to treat osteoporosis?: No Taking any aromatase inhibitor medication for breast cancer - anti-estrogen excluding tamoxifen?: No Have had the following medical conditions: Overactive parathyroid gland with elevated blood calcium (Hyperparathyroidism) Dietary/Habit Alcohol 3 units or more per day on average?: No Currently smoking tobacco? Yes Daily servings of calcium rich food: 1 Do you take a daily calcium supplement?: Yes, more than 2 per day Dual-X-ray Absorptiometry (DXA) Results Skeletal Site BMD (gm/cm2) T-Score Z-Score % Change from Previous Scan dated: 12/05/2020 Spine (L1, L2, L3, L4) 1.047 0.0 1.3 -3.9% Left Hip (Total) 0.926 -0.1 0.7 -5.2% Left Hip (Femoral neck) 0.743 -1.0 0.2 N/A Right Hip (Total) N/A N/A N/A N/A Right Hip (Femoral neck) N/A N/A N/A N/A Forearm (1/3) (Left) 0.588 -1.8 -0.6 -7.7% *N/A indicates that measurements were either not needed or not valid TBS: Trabecular Bone Score (TBS): 1.312 FRAX Score: 10 Year Risk Hip Fracture: 0.3% 10 Year Risk Major Osteoporotic Fracture: 6.6% VERTEBRAL FRACTURE ASSESSMENT: VFA not done Comments: *Decrease in bone density of spine, hip, and forearm is clinically significant. Diagnosis: *Low bone mass (osteopenia) of left forearm. Patient has a low risk of fracture Recommendations:. *Recommend lifestyle modifications as needed, including proper Calcium/Vitamin D intake, weight bearing exercises, and fall prevention. *Consider follow up DXA in 2 years, unless clinical circumstances change. Changes of spine and total hip bone density = 0.03 g/cm2 are beyond densitometer precision error and generally are considered significant when the current and prior studies were done on the same densitometer. FRAX Explanation: The 10 year risks of hip and major osteoporotic fractures (clinical spine, forearm, hip or shoulder fracture) are calculated by the FRAX algorithm based on femoral neck bone density, age, gender, race/ethnicity, weight, height, previous fracture, parental hip fracture, smoking status, glucocorticoid intake, history of RA, secondary osteoporosis, and high alcohol consumption. FRAX fracture risk estimates are adjusted for Trabecular Bone Score (TBS) when available. Trabecular Bone Score (TBS) is a measure of the microarchitectural integrity of trabecular bone, and is derived from the [id number] changes of bone density embedded in the AP spine BMD image. TBS is only modestly correlated with BMD, and is modestly associated with incident major osteoporotic and hip fractures independent of BMD and other risk factors. FRAX Fracture Risk Categories in terms of major osteoporotic fractures: < 10% = low fracture risk = 10% and <15% = mildly increased fracture risk = 15% and <20% = moderately increased fracture risk = 20% and <30% = high fracture risk = 30% = very high fracture risk National Osteoporosis Foundation Treatment Guideline A clinician may consider FDA-approved medical therapies in postmenopausal women and men aged 50 years and older, if one or more of the following is present (clinical correlation required and therapy may not always be indicated): The patient has a hip or vertebral fracture. T-score = -2.5 at the femoral neck, hip, or spine after appropriate evaluation to exclude secondary causes. Low bone mass (T-score between -1.0 and -2.5 at the femoral neck, hip or spine) and a 10-year probability of a hip fracture = 3% or a 10-year probability of a major osteoporosis-related fracture = 20% based on the FRAX scores. Sagrario Cao MD RAD DEXA * Hgb A1C (06/12/2023 12:41 PM CDT) [facility] Hemoglobin A1C (Rapid) 5.3 <=5.6 % 06/12/2023 2:53 PM T [facility] Estimated Average Glucose (Calc) 105 < 117 mg/dL 06/12/2023 2:53 PM [facility] Comment:Estimated average gl ucose (eAG) converts A1c into glucose units (mg/dL) and estimates average glucose over the past approximately 3 months. The eAG reference interval (<117 mg/dL) corresponds to an A1c of <5.7%. Blood Venipuncture / Unknown 06/12/2023 12:41 PM CDT 06/12/2023 12:41 PM CDT Narrative [facility] - 06/12/2023 2:53 PM CDT The test method used for this Hemoglobin A1c result can experience interference from elevated hemoglobin and other hemoglobin variants. In patients with results that do not correlate clinically, contact the lab for further direction. Neida Aragon MD LAB_1 [facility] [address] [place] [address] * Lipid Panel and Direct LDL(If Needed) (03/26/2023 11:16 AM CLAY PREPARATION SUPERVISOR) [facility] Cholesterol 176 0 - 199 mg/dL 03/26/2023 12:[address] [facility] Triglyceride 70 <=149 mg/dL 03/26/2023 12:[address] [facility] HDL Cholesterol 83 >=40 mg/dL 12:[address] [facility] LDL, Calculated 79 <130 mg/dL 12:[address] [facility] Non HDL Chol, Calculated 93 <=159 mg/dL 03/26/2023 12:[address] [facility] Cholesterol/HDL Ratio 2.1 <=5.0 03/26/2023 12:[address] [facility] Hours Fasting 0.1 8 - 12 Hours 03/26/2023 12:[address] [facility] Comment:Lab unable to obtain patient's fasting status at time of specimen collection. Blood Venipuncture / Unknown 03/26/2023 11:16 AM CLAY PREPARATION SUPERVISOR 03/26/2023 11:16 AM CLAY PREPARATION SUPERVISOR Neida Aragon MD LAB_1 Performing Organization Address City/[facility]/ZIP Co de Phone Number [facility] [address] [place] [address] [phone] * HCAB - Hepatitis C Virus Wendy with Reflex In-House (06/14/2019 2:37 PM CDT) [facility] Hepatitis C Antibody Negative (Non Reactive) Negative (Non Reactive) 06/14/2019 7:06 PM CDT [facility] Comment:Antibodies to HCV no t detected. Does not exclude the possiblity of exposure to HCV. Blood Venipuncture / Unknown 06/14/2019 2:37 PM CDT 06/14/2019 2:38 PM CDT Dakota Gould MD LAB_1 [facility] [address] * HIV-1 P24 AND HIV-1/HIV-2 ANTIBODIES (06/12/2015 9:40 AM CDT) [facility] HIV-1 p24 Ag and HIV-1/HIV-2 Ab Nonreactive Non-React mu HP CONVERSION 06/12/2015 9:40 AM CDT 06/12/2015 12:16 PM CDT Narrative HP CONVERSION - 06/12/2015 1:21 PM CDT Performed at [address] [address] CLIA number [id number] Jin Jeffries MD LAB_1 HP CONVERSION from Last 3 Months or Most Recently Relevant to Health Maintenance Care Teams Rotogravure Press Operator Relationship Specialty [place] [address] [place] [address] PCP - General 12/11/11
--- OUTSIDE RECORDS SUMMARY | 2024-05-07 16:14 | XMS_ITS | Encounter Summary ---
Author Organization [facility] Address [address] [place] [address] Care Team Providers Care Radiologic Technology Instructor Name Role Phone Neida Aragon MD Primary Care Provider Reason for Referral * Procedure/Equipment (Routine) - Authorized Specialty Diagnoses / Procedures Referred By Contac t Referred To Contact Diagnoses NATALY (obstructive sleep apnea) Procedures Sleep Diagnostic Tests: [place] [address] [facility] [place] [address] Referral ID Status Reason Start Date Expiration Date V isits Requested Visits Authorized [id number] Authorized 04/16/2024 07/16/2025 1 1 GATOR GRAVITY FLOW Encounter Details Date Type Department Care Team (Late st Contact Info) Description 04/16/2024 Notes/Orders [facility] [address] [place] [address] [place] [address] [address] [place] [id number] NATALY (obstructive sleep apnea) (Primary Dx) Social History Tobacco Use Types Packs/Day Years [...] st Contact Info) Description 05/17/2024 2:30 PM IRRIGATOR GRAVITY FLOW Appointment [facility] [address] [place] [address] [place] [address] [place] [address] 05/25/2024 10:30 AM IRRIGATOR GRAVITY FLOW Appointment Specialty [place] [facility] [facility] [address] [place] [address] 05/26/2024 1:00 PM IRRIGATOR GRAVITY FLOW Appointment Audiology at [facility] [address] [place] [address] [place] [phone] Robert Leiva AU.D. [address] [place] [address] 06/08/2024 8:15 AM CDT Appointment Pulmonary at [address] [address] [place], Isadora Esteves, CERAMIC SPRAYER, SENIOR PROJECT ARCHITECT [address] [place] [address] 11/22/2024 2:45 PM CDT Appointment Rheumatology at [address] [address] Dakota Gould MD [address] [place] [address] Scheduled Orders Name Type Priority Associated Diagnoses Orde r Schedule Sleep Diagnostic Tests: HST Sleep Study Routine NATALY (obstructive sleep apnea) 1 Occurrences starting 04/16/2024 documented as of this encounter Visit Diagnoses Diagnosis NATALY (obstructive sleep apnea)- Primary Obstructive sleep apnea (adult) (pediatric) documented in this encounter Care Teams Radiologic Technology Instructor Relationship Specialty [place] [address] [address] [place] [address] PCP - General 12/11/11 documented as of this encounter
--- OUTSIDE RECORDS SUMMARY | 2024-05-07 16:14 | XMS_ITS | Encounter Summary ---
Author Organization [facility] Address [address] [place] [address] Care Team Providers Care Patient Care Technician Name Role Phone Neida Aragon MD Primary Care Provider Reason for Referral * Consult/Transfer Care (Routine) - Closed Specialty Diagnoses / Procedures Referred By Ross mckenna Referred To Contact Diagnoses Obstructive [place] [address] [place] [address] Referral ID Status Reason Start Date Expiration Date Visits Re quested Visits Authorized [id number] Closed 04/15/2024 07/15/2025 1 1 Scheduling Instructions Your clinician has recommended an appointment with Sleep Health Services. This is not a sleep study order and must first be reviewed by a sleep specialist to determine the next steps. The review process looks at multiple factors including your insurance requirements, personal health history, and [place] [employer] guidelines. This order will be reviewed within 1 business day and sent to scheduling for one of the following appointments: - Consultation/Office Visit with a Sleep Medicine Specialist - Consultation/Office Visit with an Insomnia Specialist - Portable/Home Sleep Test If you do not hear from our scheduling staff within the next 7 days, please contact us at [phone] and select option 1. Question Answer Appointment Urgency Non-Urgent Sleep Service Requested Sleep Test Other Pertinent History None Previously Diagnosed NATALY Yes Comments Comments: Age/Sex: 58 y.o. / female Height: 03/29 : 5' 5 (1.651 m) Weight: 03/29/24 : 208 lb 6.4 oz (94.5 kg) BMI: Estimated body mass index is 34.68 kg/m as calculated from the following: Height as of 03/29/24: 5' 5 (1.651 m). Weight as of 03/29/24: 208 lb 6.4 oz (94.5 kg). TY REGISTER OF DEEDS Reason for Visit * Reason Comments Follow Up Sleep Apnea Encounter Details Date Type Department Care Team (Late st Contact Info) Description 04/15/2024 Nurse Triage [facility] [address] [place], [place] [phone] [place] [address] [place], [place] [phone] Follow Up Sleep Apnea Social History Tobacco Use Types Packs/Day Years [...] as of this encounter Nursing Notes * Jacqui Medina LPN - 04/15/2024 2:04 PM CST Pt informed, scheduled, and given number for sleep services in case she is not reached by them. TY REGISTER OF DEEDS * Neida Aragon MD - 04/15/2024 1:01 PM CST Home sleep study ordered - they usually call patient but she can call them if hasn't heard from them in a week or 2. Video or phone visit tomorrow at 1:30 if available. TY REGISTER OF DEEDS * Tonya Bernard RN - 04/15/2024 11:11 AM CST Clinician: Review and advise and Patient is expecting a call back from [facility] Patient/resident care assistant request: Input needed: ongoing elevated blood pressure in AM Specific Request: Pt with ongoing elevated morning blood pressure readings would like sleep study. Nurse advised pt per protocol. Attempted to provide appt. No appt's available with PCP. Pt would like f/u with PCP. Of note at last OV on 03/29/24: Neida Aragon MD: No symptomatic improvement with fludrocortisone 0.1mg daily for past 2 months. Her resting blood pressures have increased. She will stop fludrocortisone and let me know if symptoms worsen and blood pressure readings in a few weeks. Please review nurse note below with current blood pressure readings. Situation/Background (brief explanation of current symptoms/situation): Spoke with pt. States she would like to have a referral for sleep study. States he has a hx of sleep apnea many years ago, CPAPwas ordered then, no longer uses cpap. Pt states concern due to blood pressures remain elevated in the morning, wondering if she is not getting enough oxygen at night time. During daytime notices lower readings. Denies symptoms during sleep. Per chart review, 03/29/24. nurse noted at last visit pt was to stop Fludrocortisone and report blood pressure readings in a few weeks. Readings reported during this call: 04/15:166/83, 04/14: 184/84, 04/13: 147/78, 04/12: 145/80. Pt takes blood pressure, two readings, 5 minutes apart during this call: 189/93 P: 92 second readin/82 P: 88 Denies: chest pain, breathing difficulty, unilateral weakness/numbness, headaches. Reviewed pertinent medical history (as relates to the call): Yes Reviewed pertinent medications (as relates to the call): Yes Reason for Disposition Systolic BP >= 160 OR Diastolic >= 100 Protocols used: Blood Pressure - [id number] TY REGISTER OF DEEDS * Karime Foster - 04/15/2024 11:04 AM CST Symptoms Describe your symptoms (if pain, include location): Sleep concerns When did they start? Ongoing Additional comments (related to the above concern): Please advise best next steps if pt wants to be re evaluated in sleep dept for concerns Insurance verified and confirmed with patient? Yes If a prescription is needed, patient would like it filled at the pharmacy listed in Medication Management. Preferred communication method: Phone Call. Is it okay to leave a detailed message on your voicemail? Yes Is there anything else I can help you with today? TY REGISTER OF DEEDS documented in this encounter Plan of Treatment Upcoming Encounters Date Type Department Care Team (Late st Contact Info) Description 05/17/2024 2:30 PM DEPUTY REGISTER OF DEEDS Appointment [facility] Medicine [address] [place] [address] [place] [id number] [place] [address] 05/25/2024 10:30 AM DEPUTY REGISTER OF DEEDS Appointment [facility] [place] [address] [facility] [address] [place] [address] 05/26/2024 1:00 PM DEPUTY REGISTER OF DEEDS Appointment Audiology at [facility] [address] [facility] [address] [place] [phone] Robert Leiva AU.D. [address] [place] [address] 06/08/2024 8:15 AM CDT Appointment Pulmonary at [facility] [address] [address] [address] [place] [address] NeurockIsadora APRN, AIR QUALITY CHEMIST [address] [place] [address] 11/22/2024 2:45 PM CDT Appointment Rheumatology at [facility] [address] [place] [address] [place] [address] Dakota Gould MD [address] [place] [address] Scheduled Referrals Name Type Priority Associated Diagnoses Orde r Schedule Sleep Services Referral Routine Obstructive sleep apnea Ordered: 04/15/2024 documented as of this encounter Visit Diagnoses Diagnosis Obstructive sleep apnea- Primary Obstructive sleep apnea (adult) (pediatric) documented in this encounter Care Teams Patient Care Technician Relationship Specialty [place] [address] [place] [address] PCP - General 12/11/11 documented as of this encounter
--- OUTSIDE RECORDS SUMMARY | 2024-05-07 16:14 | XMS_ITS | Encounter Summary ---
Author Organization [facility] Address [address] [place] [address] Care Team Providers Care Carding Supervisor Name Role Phone Neida Aragon MD Primary Care Provider Reason for Visit * Procedure/Equipment (Routine) - Incomplete Specialty Diagnoses / Procedures Referred By Ross mckenna Referred To Contact Diagnoses Encounter for screening mammogram for malignant neoplasm of breast Procedures MM Mammogram Screening Bilat W 3D [place] [address] [place] [address] Referral ID Status Reason Start Date Expiration Date V isits Requested Visits Authorized [id number] Incomplete 03/29/2024 06/28/2025 1 1 Encounter Details Date Type Department Care Team (Latest Contact Info) Description 04/07/2024 1:00 PM EMPLOYER RELATIONS REPRESENTATIVE Ancillary Procedure [facility] at [facility] [place] [address] [address] [address] [facility], [place] [address] [place] [address] [place] [address] Encounter for screening mammogram for malignant neoplasm of breast Social History Tobacco Use Types Packs/Day Years [...] st Contact Info) Description 05/17/2024 2:30 PM EMPLOYER RELATIONS REPRESENTATIVE Appointment [facility] [address] [place] [address] [place] [address] [place] [address] 05/25/2024 10:30 AM EMPLOYER RELATIONS REPRESENTATIVE Appointment [place] [address] [facility] [address] [place] [address] 05/26/2024 1:00 PM EMPLOYER RELATIONS REPRESENTATIVE Appointment Audiology at [facility] [address] [facility] [address] [place] [phone] Robert Leiva AU.D. [address] [place] [address] 06/08/2024 8:15 AM CDT Appointment Pulmonary at [facility] [address] [place] [address] [place], Isadora Esteves, APPLICATION ANALYST, HEAD TENNIS COACH [address] [place] [address] 11/22/2024 2:45 PM CDT Appointment Rheumatology at [facility] [address] [place] [address] Dakota Gould MD [address] [place] [address] documented as of this encounter Procedures Procedure Name Priority Date/Time Associated Diagnosis Comments MM MAMMOGRAM SCREENING BILAT W 3D BARB W CAD Routine 04/07/2024 1:04 PM EMPLOYER RELATIONS REPRESENTATIVE Encounter for screening mammogram for malignant neoplasm of breast documented in this encounter Results * MM Mammogram Screening Bilat W 3D Barb W CAD (04/07/2024 1:04 PM EMPLOYER RELATIONS REPRESENTATIVE) Anatomical Region Laterality Modality Breast Bilateral Mammography Impressions 04/07/2024 1:18 PM EMPLOYER RELATIONS REPRESENTATIVE : ACR BI-RADS Category 1: Negative RECOMMENDATION: Follow Up Imaging in 12 months - Bilateral The results and recommendations of this examination will be communicated to the patient. Narrative 04/07/2024 1:18 PM EMPLOYER RELATIONS REPRESENTATIVE MM MAMMOGRAM SCREENING BILAT W 3D BARB W CAD performed on 04/07/24 [facility] Accredited Facility: [place] [address] Compared to: 03/26/2023 MM Mammogram Screening Bilat W 3D Barb W CAD, 01/13/2019 MM Mammogram Screening Bilat W 3D Barb W CAD, and 09/13/2014 MM Mammogram Screening Bilat W CAD FINDINGS: Bilateral screening mammogram was performed with the assistance of Computer-Aided Detection and breast tomosynthesis. There are scattered areas of fibroglandular density. There is no radiographic evidence of malignancy. Neida Aragon MD RAD ZAHRA documented in this encounter Visit Diagnoses Diagnosis Encounter for screening mammogram for malignant neoplasm of breast Other screening mammogram documented in this encounter Care Teams Carding Supervisor Relationship Specialty [place] [address] [place] [address] PCP - General 12/11/11 documented as of this encounter
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
--- OUTSIDE RECORDS SUMMARY | 2024-05-07 16:15 | XMS_ITS | Continuity of Care Document ---
Author Organization [facility] Address [address] [place] [phone] Phone Care Team Providers Care Senior Electronics Technician Name Role Phone Will MD CASTANO, Aurelio Unavailable Unavailabl e Advance Directives Directive Yes / No Effective Date File Name No Information Encounters Encounter Description Practice Location Reason(s) For Visit Diagnoses Date Provider Providers Copied on Encounter [facility], [address] [place] [address], [id number], [place] tel:[phone] [facility] No Information Will Aurelio. [address] [facility] [place], [place], [id number], [place]. tel:[phone] Family History Family Member Type Diagnosis Age At Onset No Information Payers Payer name Insurance type Covered libertarian ID Authoriza tion(s) No Information Social History Type Description Quantity Date Captured Comments Sex Female Smoking Status No Information Chief Complaint And Reason For Visit No Information Reason For Referral Reason For Referral No Information History Of Present Illness Encounter Date Complaint History Of Prese nt Illness No Information Functional Status Date Functional Assessmen t No Information Instructions Date Instruction Additional Infor mation No Information Assessments Type Assessment Date No Information Patient Care Teams Name Effective Dates (start - stop) Status Members No Information
--- NOTE | 2024-05-07 16:39 | CRLHL7_ITS ---
For Patients: As a result of the Century Cures Act, medical imaging exams and procedure reports are released immediately into your electronic medical record. You may view this report before your referring provider. If you have questions, please contact your health care provider. INDICATION: Dizziness, confusion. TECHNIQUE: Noncontrast CT of the head with multiplanar reconstruction utilizing bone and soft tissue algorithms. COMPARISON: CT head dated 05/15/2023. FINDINGS: No acute intracranial hemorrhage. The navarro-white matter interface is preserved. The ventricles are normal in size. No abnormal extra-axial fluid collection is identified. Intact calvarium and skull base. Unremarkable orbits. Similar large partially imaged postinflammatory right maxillary mucous retention cyst. IMPRESSION: No acute intracranial abnormality. Please note that all CT scans at this facility use dose modulation, iterative reconstruction, and/or weight-based dosing when appropriate to reduce radiation dose to as low as reasonably achievable. Dictated by Aurelio Díaz MD @ 05/07/2024 5:33:27 PM (Electronically Signed)
--- NOTE | 2024-05-07 17:17 | ED.GENADULT ---
HPI - General Adult General Time Seen by Provider: 17:17 Date Seen: 05/07/24 Chief complaint: Dizziness/Vertigo Stated complaint: feels out of sort, confused and forgetful Time Seen by Provider: 05/07/24 17:15 Source: patient and RN notes reviewed Mode of arrival: ambulatory Limitations: no limitations History of Present Illness HPI narrative: This 58-year-old female is ambulatory into the ED of her own accord with concerns of brain fog, word finding difficulty, dizziness/vertigo, gait imbalance. She states she feels like she is drunk but does not drink alcohol. Symptoms started about 2 weeks ago. She feels she has been more forgetful, brain fog, word-finding difficulty. She feels it is worse today which is what brought her in. In the last month she did have norovirus, nausea vomiting have stopped. She has occasionally still had a loose stool but the diarrhea has resolved. She denies any head trauma, no headache or pain. She states she has a brain aneurysm that she was diagnosed with many years ago, no brain bleed. No current fevers or chills. She was at [facility], states she had an evaluation for POTS. She has felt her heart racing sometimes, unsure if it is anxiety or possibly related to POTS. She also notes for about 2 years she has been getting monthly ketamine injections for depression and chronic pain. She no longer has any pain, does feel it helps a depression. Her last injection was about 2 weeks ago. In [facility], past medical history is reported to be significant for hypertension, hypothyroidism, GERD, myasthenia gravis, cervical spondylosis, migraine, carpal tunnel syndrome, depression. TSH 1 month ago on March 29 was 1.21, normal. Had already ordered TSH here prior to seeing this result. Related Data Home Medications ?Medication ?Instructions ?Recorded ?Confirmed albuterol 90 mcg/actuation aerosol 180 mcg inhalation .q4hrs PRN 04/02/23 04/02/23 inhaler calcium carbonate (Super Calcium) 600 mg PO BID 04/02/23 04/02/23 dextroamphetamine sulfate 5 mg 5 mg PO DAILY 04/02/23 04/02/23 capsule,extended release hydroxychloroquine 200 mg tablet 200 mg PO BID 04/02/23 05/07/24 levothyroxine 125 mcg tablet 125 mcg PO DAILY 04/02/23 05/07/24 (Euthyrox) lisinopril 10 mg tablet 10 mg PO DAILY 04/02/23 05/07/24 methotrexate sodium 2.5 mg tablet 15 mg PO QWEEK 04/02/23 05/07/24 promethazine 25 mg tablet 25 mg PO Q6H PRN 04/02/23 04/02/23 vilazodone 40 mg tablet 40 mg PO DAILY PRN 04/02/23 05/07/24 calcium carb-vitamin D3-vit K2 PO 05/15/23 multivit 41-iron 1.5 mg-folate 8 1 cap PO DAILY 05/15/23 05/15/23 8.73 mg-pserinedha 6.4 mg capsuleDR (EnBrace HR) estradiol 0.25 mg/0.25 gram (0.1 1 packet topical DAILY 05/07/24 05/07/24 %) transdermal gel packet hydroxyzine HCl 25 mg tablet 25 - 50 mg PO DAILY PRN insomnia 05/07/24 05/07/24 nystatin 500,000 unit tablet 500,000 unit PO BID 05/07/24 05/07/24 progesterone micronized 100 mg 100 mg PO QPM 05/07/24 05/07/24 capsule Allergies Allergy/AdvReac Type Severity Reaction Status Date / Time azithromycin Allergy Unknown Verified 04/04/23 16:30 benzoin Allergy Unknown Verified 04/04/23 16:30 bupropion Allergy Unknown Verified 04/04/23 16:30 cephalexin Allergy Unknown Verified 04/04/23 16:30 chlorhexidine Allergy Unknown Verified 04/04/23 16:30 levofloxacin Allergy Unknown Verified 04/04/23 16:30 neomycin Allergy Unknown Verified 04/04/23 16:30 tetracycline Allergy Unknown Verified 04/04/23 16:30 Iodinated Contrast Media Allergy Anaphylaxis Verified 04/04/23 16:30 Review of Systems Status of ROS: Reports: 6 or more systems reviewed and unremarkable except as noted in History and below [facility] Social History Smoking Status: Unknown if ever smoked Do you use any of these nicotine containing products: None How often do you have a drink containing alcohol: never AUDIT-C Alcohol total score: 0 Non-prescribed substance use: denies use service: No Exam Const: Vital Signs, click to edit/add: Vital Signs - 24 hr 05/07/24 16:25 Temperature 97.8 F Pulse Rate [Right Pulse Oximeter] 92 Respiratory Rate 18 Blood Pressure [Ri ght Upper Arm] 145/84 H Pulse Oximetry 99 Oxygen Delivery Me thod Room Air This 58-year-old female is alert, interactive, no apparent distress. Pupils equal round reactive, sclera clear, extraocular muscles intact. Symmetrical facial function, able to speak in complete sentences. Does at times seem to have some pausing in no trying to find words. Speech is succinct however. Neck supple, no adenopathy, no thyromegaly masses or nodules. Lungs are clear, good air entry, no wheezing or crackles. CV regular rate and rhythm, no murmur. She has symmetrical facial function. Abdomen is soft, nontender, nondistended, no organomegaly. Strength is 5/5 and symmetric on both sides. She taps her fingers multiple times on her rapid alternating finger movements. When she closes her eyes, arms do drift down. She misses her nose and hits her left cheek with both index fingers. There is no tremor baseline, no dysmetria in her arcs of movement. Documenting provider has reviewed patient's vital signs: yes Course Course ED Course: Nursing staff had done head CT in triage, are awaiting this report. Will have her on cardiac monitoring to ensure no arrhythmia, pulse oximetry. Will do full complement of labs to ensure no metabolic causes, TSH had been ordered but see there is a relatively recent 1 in her records. She will have an EKG. Will await the head CT. May need to talk to Neurology. Doubtful that this is an acute CVA, could be subacute as it has been going on weeks. Could be multifactorial with medications and underlying medical issues. She is having no difficulty breathing, no double vision, doubt myasthenia flare. Consultations Consultation #1: Have spoken with Neurology Dr. Wood. She agrees that the findings here do not seem to be consistent with myasthenia gravis problem. She states the brain fog in those complaints are not a myasthenia issue. She recommends that this patient follow up outpatient with Neurology consultation if ongoing symptoms; this was going to be my plan and has been confirmed. Will also have patient follow-up for recheck of calcium, calcium remains elevated, they can do outpatient workup of hypercalcemia. Will update patient on discharge status at this time. Time: 20:37 Vital Signs Vital signs: Initial Vital Signs Temperature 97.8 F 05/07/24 16:25 Temperature Source Temporal Artery Scan 05/07/24 16:25 Pulse Rate 92 05/07/24 16:25 Pulse Rhythm Regular 05/07/24 16:25 Respiratory Rate 18 05/07/24 16:25 Blood Pressure 145/84 H 05/07/24 16:25 Blood Pressure Mean 104 05/07/24 16:25 Blood Pressure Position Sitting 05/07/24 16:25 Pulse Oximetry 99 05/07/24 16:25 Oxygen Delivery Method Room Air 05/07/24 16:25 Vital Signs Temperature 97.8 F 05/07/24 16:25 Pulse Rate 92 05/07/24 16:25 Respiratory Rate 18 05/07/24 16:25 Blood Pressure 145/84 H 05/07/24 16:25 Pulse Oximetry 99 05/07/24 16:25 Oxygen Delivery Method Room Air 05/07/24 16:25 Temperature 97.8 F 05/07/24 16:25 Pulse Rate 92 05/07/24 16:25 Respiratory Rate 18 05/07/24 16:25 Blood Pressure 145/84 H 05/07/24 16:25 Pulse Oximetry 99 05/07/24 16:25 Oxygen Delivery Method Room Air 05/07/24 16:25 Medications Administered Medications: Discontinued Medications Generic Name Dose Route Start Last Admin Trade Name Freq PRN Reason Stop Dose Admin Sodium Chloride 500 mls @ 500 mls/hr 05/07/24 18:46 05/07/24 18:56 0.9 % Sodium Chloride 500 Ml IV 05/07/24 19:45 500 mls/hr .Q1H ONE Administration Medical Decision Making Lab Data Lab results reviewed: Yes I reviewed the patient's lab results Lab results narrative: Patient's calcium did come back mildly elevated, did do a lab add on for an ionized calcium which is just very mildly up at 1.4 with 1.3 being normal. Will give her 500 mL normal saline, have her follow up outpatient for recheck. Labs: Lab Results 05/07/24 05/07/24 Range/Units 17:40 18:24 WBC 9.67 (4.50-11.00) K/uL RBC 5.16 (4.00-5.20) m/uL Hgb 14.8 (12.0-16.0) gm/dL Hct 45.3 (33.0-51.0) % MCV 88 (80-100) fL MCH 29 (26-34) pg MCHC 33 (32-36) gm/dL RDW Coeff of Raven 12.8 (11.5-15.5) % Plt Count 224 (140-440) K/uL Neut % (Auto) 72.7 H (42.0-72.0) % Lymph % (Auto) 19.4 L (20-44) % Lake % (Auto) 6.3 (0.0-11.0) % Eos % (Auto) 0.8 (0.0-7.0) % Baso % (Auto) 0.7 (0.0-3.0) % Neut # (Auto) 7.00 (1.7-7.0) K/uL Lymph # (Auto) 1.90 (0.90-2.90) K/uL Lake # (Auto) 0.60 (0.00-0.90) K/UL Eos # (Auto) 0.08 (0.00-0.50) K/uL Baso # (Auto) 0.07 (0.00-0.30) K/uL Abs Immat Gran (auto) 0.01 (0.00-0.30) K/uL Imm/Tot Granulo (auto) 0.1 % ESR 7 (2-20) mm/hr Sodium 138 (135-149) mmol/L Potassium 3.8 (3.6-5.1) mmol/L Chloride 101 (96-114) mmol/L Carbon Dioxide 25 (20-32) mmol/L Anion Gap 12 (7-15) mEq/L BUN 28 (7-30) mg/dL Creatinine 1.0 (0.5-1.5) mg/dL Estimated Creat Clear 55.18 Estimated GFR 65 ml/min Glucose 87 (60-115) mg/dL Lactate 0.9 (0.5-1.9) mmol/L Calcium 11.1 H (8.4-10.6) mg/dL Ionized Calcium Angie 1.40 H (1.11-1.30) mmol/L Magnesium 2.0 (1.5-2.6) mg/dL Total Bilirubin 0.4 (0.1-1.5) mg/dL AST 34 (12-35) U/L ALT 25 (4-35) U/L Alkaline Phosphatase 100 (40-150) U/L Troponin I < 0.01 L (0.01-0.04) ng/mL C-Reactive Protein < 0.5 L (0.5-1.0) mg/dL NT-Pro-B Natriuret Pep < 20 pg/mL Total Protein 7.8 (6.0-8.3) g/dL Albumin 4.7 (3.3-5.0) g/dL TSH 0.637 (0.270-4.200) uIU/mL Lab Acknowledgement Test Added Imaging Data CT scan - head: Attestation: I have reviewed the pertinent imaging results. Radiologist's impression: Patient: CYNDI NICHOLS Facility:?[facility] Patient ID:?[id number] Site Patient ID:?[id number]. Site :?[id number] Study:?CT-Head WITHOUT-05/07/2024 5:08:18 PM Ordering Physician:?PROVIDER TEMP Final Report: INDICATION: Dizziness, confusion. TECHNIQUE: Noncontrast CT of the head with multiplanar reconstruction utilizing bone and soft tissue algorithms. COMPARISON: CT head dated 05/15/2023. FINDINGS: No acute intracranial hemorrhage. The navarro-white matter interface is preserved. The ventricles are normal in size. No abnormal extra-axial fluid collection is identified. Intact calvarium and skull base. Unremarkable orbits. Similar large partially imaged postinflammatory right maxillary mucous retention cyst. IMPRESSION: No acute intracranial abnormality. Please note that all CT scans at this facility use dose modulation, iterative reconstruction, and/or weight-based dosing when appropriate to reduce radiation dose to as low as reasonably achievable. Dictated by Aurelio Díaz MD @ 05/07/2024 5:33:27 PM (Electronic Signature) ECG Data Attestation: I personally reviewed and interpreted this ECG as follows: (Normal sinus rhythm, 88 beats per minute. No ischemia, no infarct noted.) Prior ECG tracings: available for review (Prior EKG normal as well from 05/15/2023.) Discharge Plan Discharge Clinical Impression: Brain fog, Word finding difficulty, Hypercalcemia Patient Disposition: Home, Self-Care Condition: Stable Instructions: Hypercalcemia (ED) Additional Instructions: Your calcium was just mildly out of range here. It is recommended that you get a calcium recheck within the next 1-2 weeks a clinic, if it remains elevated a full workup for hypercalcemia can be started in the clinic. As far as your complaints of brain fog, word-finding difficulty, gait issues, vertigo, is been recommended by Neurology that you follow-up outpatient and have a Neurology referral if ongoing issues. Activity Level: Activity as Tolerated Prescriptions: No Action dextroamphetamine sulfate 5 mg capsule, extended release 5 mg PO DAILY lisinopril 10 mg tablet 10 mg PO DAILY promethazine 25 mg tablet 25 mg PO Q6H PRN calcium carbonate [Super Calcium] 600 mg calcium (1,500 mg) tablet 600 mg PO BID methotrexate sodium 2.5 mg tablet 15 mg PO QWEEK levothyroxine [Euthyrox] 125 mcg tablet 125 mcg PO DAILY Rx Instructions: 1 tab daily 6 times a week and 0.5 tab (62.5 mg) once every week. hydroxychloroquine 200 mg tablet 200 mg PO BID albuterol 90 mcg/actuation aerosol 180 mcg inhalation .q4hrs PRN vilazodone 40 mg tablet 40 mg PO DAILY PRN Rx Instructions: must administer with a meal/food EnBrace HR 1.5 mg iron- 8.73 mg-6.4 mg capsule,IR - delay rel,biphase 1 cap PO DAILY calcium carb-vitamin D3-vit K2 PO nystatin 500,000 unit tablet 500,000 unit PO BID hydroxyzine HCl 25 mg tablet 25 - 50 mg PO DAILY PRN (Reason: insomnia) progesterone micronized 100 mg capsule 100 mg PO QPM estradiol 0.25 mg/0.25 gram (0.1 %) gel in packet 1 packet topical DAILY Follow Up/Referrals: DARREL HILL [Primary Care Provider] - Stand Alone Forms: CoTweet Info Instructions
--- OUTSIDE RECORDS SUMMARY | 2024-05-07 17:33 | XMS_ITS | Encounter Summary ---
Author Organization [facility] Address [address] [place] [address] Care Team Providers Care Chemical Packager Name Role Phone Neida Aragon MD Primary Care Provider Reason for Visit * Reason Comments BLOOD PRESSURE, HIGH Encounter Details Date Type Department Care Team (Late st Contact Info) Description 11/17/2018 Nurse Triage [facility] [address] [place], [place] [phone] Neida Aragon MD [address] [place] [address] [phone] BLOOD PRESSURE, HIGH Social History Tobacco Use [...] st Contact Info) Description 05/17/2024 2:30 PM CLINICAL RN MANAGER Appointment [facility] [address] [place] [address] [place] [address] [place] [address] 05/25/2024 10:30 AM CLINICAL RN MANAGER Appointment [facility] [address] [place] [address] 05/26/2024 1:00 PM CLINICAL RN MANAGER Appointment Audiology at [facility] [address] [address] [address] [place] [id number] Robert Leiva AU.D. [address] [place] [address] 06/08/2024 8:15 AM CDT Appointment Pulmonary at [facility] [address] [address] [address] [place] [address] Neurock, Isadora Esteves, URINALYSIS TECHNICIAN, TENNIS PROFESSIONAL [address] [place], [place] [address] 11/22/2024 2:45 PM CDT Appointment Rheumatology at [address] [address] Dakota Gould MD [address] [place], [place] [id number] documented as of this encounter Visit Diagnoses Not on filedocumented in this encounter Additional Health Concerns Infection Onset Date Last Indicated Resolved Time R/O COVID19 02/19/2022 02/19/2022 02/20/2022 3:39 AM CLINICAL RN MANAGER R/O COVID19 02/17/2023 02/17/2023 02/17/2023 9:09 PM CLINICAL RN MANAGER documented as of this encounter Care Teams Chemical Packager Relationship Specialty Start Date End Date Neida Aragon MD [address] [place] [address] ELIZABETH GREGG [address] PCP - General 12/11/11 documented as of this encounter
--- OUTSIDE RECORDS SUMMARY | 2024-05-07 17:33 | XMS_ITS | Clinical Summary ---
Author Organization [facility] Address [address] [place] [address] Phone Care Team Providers Care Ambulatory Services Representative Name Role Phone Neida Aragon MD Primary Care Provider [phone] Source Comments [facility] [employer] is fully rolled out on [employer] Last update 09/02/08.[facility] Allergies Active Allergy Reactions Criticality Noted Date [...] Other Other (see comments) 02/03/2015 Colophony,Balsam of [place],2-Oh ethyl methacrylate,MMA,Co mpositae mix,EGDMA,2-Oh ethyl acrylate,2-Oh propyl [...] CDT): A: History of REM diagnosed by [facility] 10 years ago. Today, c/o intermittent very [...] Body Mass Index 34.54 01/30/2015 10:09 AM DEAF INTERPRETER Plan of Treatment Health Maintenance Due Date [...] to complete this topic Insurance ELIZABETH CUMMINGS [id number] [facility] Care Teams Ambulatory Services Representative Relationship Specialty [place] [address] [place] ELIZABETH Calderon [address] PCP - General Outside Provider 08/25/14
--- OUTSIDE RECORDS SUMMARY | 2024-05-07 17:33 | XMS_ITS | Encounter Summary ---
Author Organization [facility] Address [address] [place] [address] Care Team Providers Care Ditch Rider Name Role Phone Neida Aragon MD Primary Care Provider Reason for Referral * Consult/Transfer Care (Routine) - New Request Specialty Diagnoses / Procedures Referred By Ross mckenna Referred To Contact Diagnoses Hearing loss, unspecified hearing loss type, [place] [address] [facility] [place] [address] Referral ID Status Reason Start Date Expiration Date V isits Requested Visits Authorized [id number] New Request 03/29/2024 06/28/2025 1 1 Scheduling Instructions Your clinician has recommended an appointment with [facility]. You may call [phone] to schedule your appointment. We suggest you call your health insurance company about your coverage and benefits for this appointment. Question Answer Appointment Urgency? Non-Urgent STACKER * Therapies (Routine) - New Request Specialty Diagnoses / Procedures Referred By Ross mckenna Referred To Contact Diagnoses [place] [address] [place] [address] Referral ID Status Reason Start Date Expiration Date V isits Requested Visits Authorized [id number] New Request 03/29/2024 03/29/2025 1 1 Scheduling Instructions Your clinician has recommended an appointment with Rehabilitation Services. You can quickly schedule your appointment by signing in to your online account at [email or web address] or through the text message you may have received. You can also make an appointment by calling [phone]. We suggest you call your health insurance company about your coverage and benefits for this appointment. Question Answer Appointment Urgency? Non-Urgent Requested Services Evaluate and treat Reason for Visit Cognitive Eval Select Specific Cognitive Eval MOCA May use saline for irrigation or cleansing Yes dexamethasone use Yes May check glucose per protocol (see policy link below) or if patient has symptoms? Yes STACKER * Procedure/Equipment (Routine) - Incomplete Specialty Diagnoses / Procedures Referred By Contac t Referred To Contact Diagnoses Encounter for screening mammogram for malignant neoplasm of breast Procedures MM Mammogram Screening Bilat W 3D [place] [address] [place] [address] Referral ID Status Reason Start Date Expiration Date V isits Requested Visits Authorized [id number] Incomplete 03/29/2024 06/28/2025 1 1 STACKER Reason for Visit * Reason Comments Annual Exam Encounter Details Date Type Department Care Team (Latest Contact Info) Description 03/29/2024 2:30 PM KILN STACKER Office Visit [facility] [address] [facility] [place] [address] [place] [address] [place] GREGG [phone] Encounter for Medicare annual wellness exam (Primary [...] Comments Blood Pressure 119/81 03/29/2024 2:20 PM KILN STACKER Pulse 109 03/29/2024 2:20 PM KILN STACKER Temperature - - Respiratory Rate - - Oxygen Saturation - - Inhaled Oxygen Concentration - - Weight 94.5 kg (208 lb 6.4 oz) 03/29/2024 2:20 P M KILN STACKER Height 165.1 cm (5' 5) 03/29/2024 2:20 PM KILN STACKER Body Mass Index 34.68 03/29/2024 2:20 PM KILN STACKER documented in this encounter Patient Instructions * Patient Instructions* Neida Aragon MD - 03/29/2024 2:30 PM KILN STACKER Images from the original note were not included. 1. I recommend a mammogram yearly - due now. Call [phone] for appointment. 2. I recommend colon cancer [...] 11. Please call the Endocrinology dept. at [phone] to schedule your appointment with Dr. Cao. 12. Please call the Audiology dept. at [phone] to schedule your appointment. 13. Please call Occupational Therapy at [phone] to schedule your appointment for cognitive evaluation [...] most cost-effective medications near you, go to https://www.Ui Link/hp/pharmacy/drug-cost/index.html You can also find more information in this handout. Health care can be complicated. Sometimes, it can help to share your health information with your family or caregivers. (Caregivers can be friends as well as family.) How much you share is up to you.Here is a helpful link: https://www.Ui Link/blog/vhsgdl-zyuq-sxumh-benefits/ We care about nutrition, how much physical [...] good repair and are slip-resistant. ?? 2002 [employer] P/SENIORS /#001941 Learning About Eating More Fruits and Vegetables [...] can you learn more? 1. Go to https://www.[employer]/healthlibrary. 2. Enter F050 in the search box. Current as of: December 18, 2022 Content Version: 14.2 ?? 2023 [facility] [employer]. Care instructions adapted under license by your healthcare professional. If you have questions about a medical condition or this instruction, always ask your healthcare professional. [employer] disclaims any warranty or liability for your use of this information. STACKER documented in this encounter Progress Notes * [...] out for each meal. They have a housekeeper home. She can access [employer] for grocery shopping. She is on disability. She has a housekeeper home that cleans house and does her laundry [...] Instructions. Neida Aragon MD 03/29/2024, 6:31 PM STACKER documented in this encounter Plan of Treatment Upcoming Encounters Date Type Department Care Team (Late st Contact Info) Description 05/17/2024 2:30 PM KILN STACKER Appointment [facility] [address] [place] [address] Neida Aragon MD [address] [place] [address] [place] [address] 05/25/2024 10:30 AM KILN STACKER Appointment [facility] 39[address] [facility] [address] [place] [address] 05/26/2024 1:00 PM KILN STACKER Appointment Audiology at [facility] [address] [facility] [address] [place] [phone] Robert Leiva AU.D. [address] [place] [address] 06/08/2024 8:15 AM CDT Appointment Pulmonary at [address] [address] [place] [address] Neurock, Isadora L, EMERGENCY RESPONSE OFFICER, STRUCTURAL STEEL TRADES WORKER 3931 [place], [place] [address] 11/22/2024 2:45 PM CDT Appointment Rheumatology at [address] 473037 Dakota Gould MD 3800 [place] [address] Scheduled Orders Name Type Priority Associated Diagnoses [...] 3D Petey W CAD (04/07/2024 1:04 PM KILN STACKER) Anatomical Region Laterality Modality Breast Bilateral Mammography Impressions 04/07/2024 1:18 PM KILN STACKER : ACR BI-RADS Category 1: Negative RECOMMENDATION: Follow Up Imaging in 12 months - Bilateral The results and recommendations of this examination will be communicated to the patient. Narrative 04/07/2024 1:18 PM KILN STACKER MM MAMMOGRAM SCREENING BILAT W 3D PETEY W CAD performed on 04/07/24 FDA Accredited Facility: [place] [address] Compared to: 03/26/2023 MM Mammogram Screening Bilat W 3D Petey W CAD, 01/13/2019 MM Mammogram Screening Bilat W 3D Petey W CAD, and 09/13/2014 MM Mammogram Screening Bilat W CAD FINDINGS: Bilateral screening mammogram was performed with the assistance of Computer-Aided Detection and breast tomosynthesis. There are scattered areas of fibroglandular density. There is no radiographic evidence of malignancy. Neida Aragon MD RAD [facility] documented in this encounter Visit Diagnoses [...] vaccination Need for prophylactic vaccination with combined cjqtkkkbwr-kvbjcol-gvyzlhhmy (DTP) vaccine Need for shingles vaccine Need for prophylactic vaccination and inoculation against varicella Need for influenza vaccination Need for prophylactic vaccination and inoculation against influenza Need for COVID-19 vaccine Encounter for screening mammogram for malignant neoplasm of breast Other screening mammogram documented in this encounter Care Teams Ditch Rider Relationship Specialty [place] [address] [place] [address] PCP - General 12/11/11 documented as of this encounter
--- OUTSIDE RECORDS SUMMARY | 2024-05-07 17:33 | XMS_ITS | Clinical Summary ---
Author Organization [facility] Address [address] [place] [address] Care Team Providers Care Software Release Manager Name Role Phone [facility] ovider Allergies Active Allergy [...] on file Legal Sex Female 4:51 AM FLAVOR MAKER Gender Identity Not on file Sexual Orientation [...] Plan of Treatment Not on file Insurance [employer] [facility] Address: [address] [place] [address] [facility] Advance Directives For more information, please contact: [phone] * Full Code (Latest Code Status on File) Date Activated Date Inactivated Comments 07/01/2013 11:09 AM 11/17/2018 9:51 AM * Full Code Date Activated Date Inactivated Comments 06/24/2013 11:55 PM 07/01/2013 11:09 AM * Full Code Date Activated Date Inactivated Comments 03/07/2011 4:52 PM 03/08/2011 7:05 PM Care Teams Software Release Manager Relationship Specialty Start Date End Date [facility], [facility] [address] [address] [facility] - General 02/14/11
--- OUTSIDE RECORDS SUMMARY | 2024-05-07 17:33 | XMS_ITS | Encounter Summary ---
Author Organization [facility] Address [address] [place] [address] Care Team Providers Care Print Decorator Name Role Phone Neida Aragon MD Primary Care Provider Reason for Visit * Reason Onset Date Comments Refill 04/20/2024 Encounter Details Date Type Department Care Team (Late st Contact Info) Description 04/20/2024 Refill Rheumatology at [address] [place], [place] [phone] Dakota Gould MD [address] [place] [address] [id number] Refill Social History Tobacco Use Types Packs/Day [...] Provider: DAKOTA GOULD Ordering User: JHON MCALLISTER T WELDING MACHINE OPERATOR documented in this encounter Plan of Treatment Upcoming Encounters Date Type Department Care Team (Late st Contact Info) Description 05/17/2024 2:30 PM UPSET WELDING MACHINE OPERATOR Appointment [facility] [address] [place] [address] [place] [address] [place] [address] 05/25/2024 10:30 AM UPSET WELDING MACHINE OPERATOR Appointment [place] [address] [facility] [address] [place] [address] 05/26/2024 1:00 PM UPSET WELDING MACHINE OPERATOR Appointment Audiology at [facility] [address] [place] [address] [place] [phone] Robert Leiva AU.D. [address] [place] [address] 06/08/2024 8:15 AM CDT Appointment Pulmonary at [address] [address] Neurock, Isadora Esteves, PROGRAM DIRECTOR/MUSIC DIRECTOR, RN PSYCHIATRIC 3931 [place] [address] 11/22/2024 2:45 PM CDT Appointment Rheumatology at [facility] [address] [place] [address] [place] [address] Dakota Gould MD 3800 [place] [address] documented as of this encounter Visit Diagnoses Diagnosis Systemic lupus erythematosus, unspecified SLE type, unspecified organ involvement status (HRC) documented in this encounter Care Teams Print Decorator Relationship Specialty [place] [address] [place] [address] PCP - General 12/11/11 documented as of this encounter
--- OUTSIDE RECORDS SUMMARY | 2024-05-07 17:33 | XMS_ITS | Encounter Summary ---
Author Organization [facility] Address [address] [place] [address] Care Team Providers Care General Production Manager Name Role Phone Neida Aragon MD Primary Care Provider Encounter Details Date Type Department Care Team (Late st Contact Info) Description 03/29/2024 3:20 PM PUMP SERVICER SUPERVISOR Lab Visit [facility] [address] [place] [address] Systemic lupus erythematosus, unspecified SLE type, unspecified [...] st Contact Info) Description 05/17/2024 2:30 PM PUMP SERVICER SUPERVISOR Appointment [facility] [address] [place] [address] Neida Aragon MD [address] [place] [address] [place] [address] 05/25/2024 10:30 AM PUMP SERVICER SUPERVISOR Appointment [facility] [place] [address] [facility] 39[address] [place] [address] 05/26/2024 1:00 PM PUMP SERVICER SUPERVISOR Appointment Audiology at [facility] [address] [facility] [address] [place] [phone] Robert Leiva AU.D. [address] [place] [address] 06/08/2024 8:15 AM CDT Appointment Pulmonary at [facility] [address] [address] [address] [place] [address] Neurock, Isadora Esteves, PST MANAGER, COMBINATION SAW OPERATOR 3931 [place] [address] 11/22/2024 2:45 PM CDT Appointment Rheumatology at [facility] [address] [place] [address] [place] [address] Dakota Gould MD 3800 [place] [address] documented as of this encounter Procedures Procedure Name Priority Date/Time Associated Diagnosis Comments CBC AND DIFFERENTIAL PANEL Routine 03/29/2024 3:24 PM PUMP SERVICER SUPERVISOR Systemic lupus erythematosus, unspecified SLE type, unspecified organ involvement status (HRC) COMPLETE BLOOD COUNT-W/DIFF Routine 03/29/2024 3:24 PM PUMP SERVICER SUPERVISOR Systemic lupus erythematosus, unspecified SLE type, unspecified organ involvement status (HRC) TSH, SENSITIVE Routine 03/29/2024 3:24 PM PUMP SERVICER SUPERVISOR Acquired hypothyroidism (HRC) BASIC METABOLIC PANEL Routine 03/29/2024 3:24 PM PUMP SERVICER SUPERVISOR Hypovolemia Hypertension, unspecified type (HRC) MAGNESIUM Routine 03/29/2024 3:24 PM PUMP SERVICER SUPERVISOR Hypovolemia Hypertension, unspecified type (HRC) C-REACTIVE PROTEIN Routine 03/29/2024 3: 24 PM PUMP SERVICER SUPERVISOR Systemic lupus erythematosus, unspecified SLE type, unspecified organ involvement status (HRC) AST Routine 03/29/2024 3:24 PM PUMP SERVICER SUPERVISOR Systemic lupus erythematosus, unspecified SLE type, unspecified organ involvement status (HRC) documented in this encounter Results * (ABNORMAL) Complete Blood Count-W/Diff (03/29/2024 3:24 PM PUMP SERVICER SUPERVISOR) WBC 7.8 3.5 - 10.5 x10(9)/L 03/29/2024 3:30 PM [facility] RBC 5.33(H) 3.90 - 5.03 x10(12)/L 03/29/2024 3:30 PM [facility] Hemoglobin 15.5 12.0 - 15.5 g/dL 03/29/2024 3:30 PM [facility] HCT 46.5(H) 34.9 - 44.5 % 03/29/2024 3:30 PM [facility] MCV 87.2 80.0 - 100.0 fL 03/29/2024 3:30 PM [facility] MCH 29.1 27.6 - 33.3 pg 03/29/2024 3:30 PM [facility] MCHC 33.3 31.5 - 35.2 g/dL 03/29/2024 3:30 PM [facility] RDW 12.5 11.9 - 15.5 % 03/29/2024 3:30 PM [facility] Platelets 316 150 - 450 x10(9)/L 03/29/2024 3:30 PM [facility] Automated NRBC 0 <=0 /100 WBC 03/29/2024 3:30 PM [facility] Neutrophil Absolute 5.6 1.7 - 7.0 10(9)/L 03/29/2024 3:30 PM [facility] Lymphocyte Absolute 1.6 1.0 - 4.8 10(9)/L 03/29/2024 3:30 PM [facility] Monocyte Absolute 0.5 0.2 - 0.9 10(9)/L 03/29/2024 3:30 PM [facility] Eosinophil Absolute 0.1 0.0 - 0.5 10(9)/L 03/29/2024 3:30 PM [facility] Basophil Absolute 0.1 0.0 - 0.3 10(9)/L 03/29/2024 3:30 PM [facility] Immature Granulocyte % 0.4 0.0 - 0.5 % 03/29/2024 3:30 PM [facility] Blood Venipuncture / Unknown 03/29/2024 3:24 PM PUMP SERVICER SUPERVISOR 03/29/2024 3:24 PM PUMP SERVICER SUPERVISOR Dakota Gould MD LAB_1 Performing Organization Address [facility]/ZIP Co de Phone Number [address] * Magnesium (03/29/2024 3:24 PM PUMP SERVICER SUPERVISOR) [facility] Magnesium 2.1 1.6 - 2.6 mg/dL 03/29/2024 5:48 PM [facility] Blood Venipuncture / Unknown 03/29/2024 3:24 PM PUMP SERVICER SUPERVISOR 03/29/2024 3:24 PM PUMP SERVICER SUPERVISOR Neida Aragon MD LAB_1 Performing Organization Address [facility]/ZIP Co de Phone Number [facility] [address] * (ABNORMAL) Basic Metabolic Panel (03/29/2024 3:24 PM PUMP SERVICER SUPERVISOR) Pathologist [facility] Sodium 142 136 - 145 mmol/L 03/29/2024 5:48 PM [facility] Potassium 4.1 3.5 - 5.1 mmol/L 03/29/2024 5:48 PM [facility] Chloride 105 98 - 109 mmol/L 03/29/2024 5:48 PM [facility] CO2 28 20 - 29 mmol/L 03/29/2024 5:48 PM [facility] Anion Gap 9 6 - 16 mmol/L 03/29/2024 5:48 PM [facility] Calcium 10.9(H) 8.4 - 10.4 mg/dL 03/29/2024 5:48 PM [facility] BUN 16 7 - 26 mg/dL 03/29/2024 5:48 PM [facility] Creatinine 1.05(H) 0.55 - 1.02 mg/dL 03/29/2024 5:48 PM [facility] Glucose 135(H) 70 - 100 mg/dL 03/29/2024 5:48 PM [facility] Comment:The given reference range is for the fasting state. Non-fasting reference range for glucose is 70 - 180 mg/dL. GFR, Estimated >60 >60 mL/min/1.7 3m2 03/29/2024 5:48 PM [facility] Hours Fasting 0.1 8 - 12 Hours 03/29/2024 5:48 PM [facility] Comment:Lab unable to obtain patient's fasting status at time of specimen collection. Blood Venipuncture / Unknown 03/29/2024 3:24 PM PUMP SERVICER SUPERVISOR 03/29/2024 3:24 PM PUMP SERVICER SUPERVISOR Neida Aragon MD LAB_1 Performing Organization Address City/[facility]/ZIP Co de Phone Number [facility] [address] [place] [address], [facility] * TSH (03/29/2024 3:24 PM PUMP SERVICER SUPERVISOR) TSH, Sensitive 1.21 0.30 - 4.50 uIU/mL 03/29/2024 8:19 PM PUMP SERVICER SUPERVISOR [facility] Blood Venipuncture / Unknown 03/29/2024 3:24 PM PUMP SERVICER SUPERVISOR 03/29/2024 3:24 PM PUMP SERVICER SUPERVISOR Neida Aragon MD LAB_1 [facility] [address] [place], [place] [address] [place] [address] * C-Reactive Protein (03/29/2024 3:24 PM PUMP SERVICER SUPERVISOR) C-Reactive Protein 0.2 0.0 - 0.5 mg/dL 03/29/2024 5:48 PM PUMP SERVICER SUPERVISOR [facility] Blood Venipuncture / Unknown 03/29/2024 3:24 PM PUMP SERVICER SUPERVISOR 03/29/2024 3:24 PM PUMP SERVICER SUPERVISOR Dakota Gould MD LAB_1 Performing Organization Address City/[facility] Co de Phone Number [facility] [address] [place] [address] * AST (03/29/2024 3:24 PM PUMP SERVICER SUPERVISOR) Pathologist [facility] AST (SGOT) 36 10 - 40 U/L 03/29/2024 5:48 PM PUMP SERVICER SUPERVISOR [facility] Blood Venipuncture / Unknown 03/29/2024 3:24 PM PUMP SERVICER SUPERVISOR 03/29/2024 3:24 PM PUMP SERVICER SUPERVISOR Dakota Gould MD LAB_1 Performing Organization Address [facility] de Phone Number [facility] [address] [place] [address] documented in this encounter Visit Diagnoses Diagnosis Systemic lupus erythematosus, unspecified SLE type, unspecified organ involvement status (HRC) Acquired hypothyroidism (HRC) Unspecified hypothyroidism Hypovolemia Hypertension, unspecified type (HRC) documented in this encounter Care Teams General Production Manager Relationship Specialty [place] [address] [place] [address] PCP - General 12/11/11 documented as of this encounter
--- OUTSIDE RECORDS SUMMARY | 2024-05-07 17:33 | XMS_ITS | Encounter Summary ---
Author Organization [facility] Address [address] [place] [address] Care Team Providers Care Slitter Creaser Slotter Operator Name Role Phone Neida Aragon MD Primary Care Provider Encounter Details Date Type Department Care Team (Late st Contact Info) Description 04/21/2024 E-Visit Specialty [facility] 3931 Pulmonary Medicine [facility] [place] [address] Mycemperatrizt, [place] [address] Social History Tobacco Use Types Packs/Day Years [...] st Contact Info) Description 05/17/2024 2:30 PM TRACK VEHICLE REPAIRER Appointment [facility] Medicine [address] [place], [place] 9[address] Neida Aragon MD [address] [place] [address] [place] 17[address]37 05/25/2024 10:30 AM TRACK VEHICLE REPAIRER Appointment [facility] 39[address] Sleep Lab [facility]eds [address] [place] [address] 05/26/2024 1:00 PM TRACK VEHICLE REPAIRER Appointment Audiology at [facility] [address] [address] [address] [place] [address] Robert Leiva AU.D. [address] [place] [address] 06/08/2024 8:15 AM CDT Appointment Pulmonary at [facility] [address] [address] [address] [place] [address] Neurock, Isadora Esteves APRN, FAMILY RESOURCE COORDINATOR 39[address] [place] [address] 11/22/2024 2:45 PM CDT Appointment Rheumatology at [facility] [address] [address] [address] [place] [address] Dakota Gould MD [address] [place] [address] documented as of this encounter Visit Diagnoses Not on filedocumented in this encounter Care Teams Slitter Creaser Slotter Operator Relationship Specialty Start Date End Date Neida Aragon MD [address] [place] [address] [place] [address] PCP - General 12/11/11 documented as of this encounter
--- OUTSIDE RECORDS SUMMARY | 2024-05-07 17:33 | XMS_ITS | Referral Summary ---
Author Organization [facility] Address [address] [place] [address] Phone Care Team Providers Care Lens Mounter Name Role Phone Neida Aragon MD Primary Care Provider Source Comments [employer] is fully rolled out on [employer] ([employer]). Last update 09/02/08.[employer] Allergies Active Allergy Reactions Criticality Noted Date [...] CDT): A: History of REM diagnosed by [place] 10 years ago. Today, c/o intermittent very [...] Body Mass Index 34.54 01/30/2015 10:09 AM TEACHER EARLY CHILDHOOD DEVELOPMENT Plan of Treatment Not on file Insurance ELIZABETH SANDOVAL [phone] [facility] MEDICARE Care Teams Lens Mounter Relationship Specialty [place] [address] [place] [address] PCP - General Outside Provider 08/25/14
--- OUTSIDE RECORDS SUMMARY | 2024-05-07 17:33 | XMS_ITS | Encounter Summary ---
Author Organization [facility] Address [address] [place] [address] Care Team Providers Care Teaching Specialists Name Role Phone Neida Aragon MD Primary Care Provider Reason for Visit * Procedure/Equipment (Routine) - Incomplete Specialty Diagnoses / Procedures Referred By Ross mckenna Referred To Contact Diagnoses Encounter for screening mammogram for malignant neoplasm of breast Procedures MM Mammogram Screening Bilat W 3D [place] [address] [place] [address] Referral ID Status Reason Start Date Expiration Date V isits Requested Visits Authorized [id number] Incomplete 03/29/2024 06/28/2025 1 1 Encounter Details Date Type Department Care Team (Latest Contact Info) Description 04/07/2024 1:00 PM FORK LIFT TECHNICIAN Ancillary Procedure [facility] at [facility] [place] [address] [address] [address] [facility] [place] [address] [place] [address] [place] [address] Encounter for screening mammogram [...] st Contact Info) Description 05/17/2024 2:30 PM FORK LIFT TECHNICIAN Appointment [facility] [address] [place] [address] [place] [address] [place] [address] 05/25/2024 10:30 AM FORK LIFT TECHNICIAN Appointment [place] [address] [facility] 3931 [place] [address] 05/26/2024 1:00 PM FORK LIFT TECHNICIAN Appointment Audiology at [facility] [address] [facility] [address] [place] [phone] Robert Leiva AU.D. [address] [place] [address] 06/08/2024 8:15 AM CDT Appointment Pulmonary at [facility] [address] [place] [address] Neurock, Isadora Esteves, PUBLICATION MANAGER, HAND SHAKER 3931 [place] [address] 11/22/2024 2:45 PM CDT Appointment Rheumatology at [facility] [address] [place] [address] Dakota Gould MD 3800 [place] [address] documented as of this encounter Procedures Procedure Name Priority Date/Time Associated Diagnosis Comments MM MAMMOGRAM SCREENING BILAT W 3D BARB W CAD Routine 04/07/2024 1:04 PM FORK LIFT TECHNICIAN Encounter for screening mammogram for malignant neoplasm of breast documented in this encounter Results * MM Mammogram Screening Bilat W 3D Barb W CAD (04/07/2024 1:04 PM FORK LIFT TECHNICIAN) Anatomical Region Laterality Modality Breast Bilateral Mammography Impressions 04/07/2024 1:18 PM FORK LIFT TECHNICIAN : ACR BI-RADS Category 1: Negative RECOMMENDATION: Follow Up Imaging in 12 months - Bilateral The results and recommendations of this examination will be communicated to the patient. Narrative 04/07/2024 1:18 PM FORK LIFT TECHNICIAN MM MAMMOGRAM SCREENING BILAT W 3D BARB W CAD performed on 04/07/24 [facility] Accredited Facility: [place] [address] Compared to: 03/26/2023 MM Mammogram Screening Bilat W 3D Barb W CAD, 01/13/2019 MM Mammogram Screening Bilat W 3D Barb W CAD, and 09/13/2014 MM Mammogram Screening Bilat W CAD FINDINGS: Bilateral screening mammogram was performed with the assistance of Computer-Aided Detection and breast tomosynthesis. There are scattered areas of fibroglandular density. There is no radiographic evidence of malignancy. Neida Aragon MD RAD ZAHAR documented in this encounter Visit Diagnoses Diagnosis Encounter for screening mammogram for malignant neoplasm of breast Other screening mammogram documented in this encounter Care Teams Teaching Specialists Relationship Specialty [place] [address] [place] [address] PCP - General 12/11/11 documented as of this encounter
--- OUTSIDE RECORDS SUMMARY | 2024-05-07 17:33 | XMS_ITS | Clinical Summary ---
Author Organization [facility] [employer] [facility] [employer] [facility] [facility] Address [place], [place] [address] Care Team Providers Care Disaster Response Director Name Role Phone Bri Silvestre MD Primary [...] with Dr. Jose Burgess at [facility] Carpal tunnel syndrome 08/29/2008 Overview (08/29/2008): [...] on file Legal Sex Female 5:59 AM CASEWORK SUPERVISOR Gender Identity Not on file Sexual Orientation Not on file Obstetrics History Last Filed Vital Signs Vital Sign Reading Time Taken Comments Blood Pressure 128/58 04/07/2013 9:27 PM CASEWORK SUPERVISOR Pulse 91 04/07/2013 9:27 PM CASEWORK SUPERVISOR Temperature 36.9 C (98.4 F) 04/07/2013 6:46 PM CASEWORK SUPERVISOR Respiratory Rate 18 04/07/2013 9:27 PM CASEWORK SUPERVISOR Oxygen Saturation 99% 04/07/2013 9:27 PM CASEWORK SUPERVISOR Inhaled Oxygen Concentration - - Weight - [...] CDT) CHOLESTEROL,TOTAL 203(H) 110 - 199 mg/dL [facility] TRIGLYCERIDES 188(H) 40 - 149 mg/dL [facility] HDL CHOLESTEROL 55 >40 mg/dL [facility] CHOL/HDL RATIO 3.69 <4.51 [facility] LDL CHOLESTEROL 110 <131 mg/dL [facility] PATIENT STATUS Fasting [facility] 08/29/2008 8:55 AM CDT 08/29/2008 8:48 AM CDT us Bri Silvestre MD CHEMISTRY Final Result [facility] INTERNAL ZIP [address] [address] from Last 3 Months or Most Recently Relevant to Health Maintenance Care Teams Disaster Response Director Relationship Specialty Start Date End Date Bri Silvestre MD PCP - General 12/31/07
--- OUTSIDE RECORDS SUMMARY | 2024-05-07 17:33 | XMS_ITS | Encounter Summary ---
Author Organization [facility] Address [address] [place] [address] Care Team Providers Care Survey Research Analyst Name Role Phone Neida Aragon MD Primary Care Provider Reason for Referral * Consult/Transfer Care (Routine) - Closed Specialty Diagnoses / Procedures Referred By Ross mckenna Referred To Contact Diagnoses [place]struct[place] [address] [place] [address] Referral ID Status Reason Start Date Expiration Date Visits Re quested Visits Authorized [id number] Closed 04/15/2024 07/15/2025 1 1 Scheduling Instructions Your clinician has recommended an appointment with [facility]. This is not a sleep study order and must first be reviewed by a sleep specialist to determine the next steps. The review process looks at multiple factors including your insurance requirements, personal health history, and [place] [employer] guidelines. This order will be reviewed within 1 business day and sent to scheduling for one of the following appointments: - Consultation/Office Visit with a Sleep Medicine Specialist - Consultation/Office Visit with an Insomnia Specialist - Portable/Home Sleep Test If you do not hear from our scheduling staff within the next 7 days, please contact us at [phone] and select option 1. Question Answer Appointment [...] 03/29/24: 208 lb 6.4 oz (94.5 kg). USER OPERATOR Reason for Visit * Reason Comments Follow Up Sleep Apnea Encounter Details Date Type Department Care Team (Late st Contact Info) Description 04/15/2024 Nurse Triage [facility] [address] [place], [place] [phone] [place] [address] [place], [place] [phone] Follow Up Sleep Apnea Social History Tobacco [...] case she is not reached by them. USER OPERATOR * Neida Aragon MD - 04/15/2024 1:01 PM CST Home sleep study ordered - they usually call patient but she can call them if hasn't heard from them in a week or 2. Video or phone visit tomorrow at 1:30 if available. USER OPERATOR * Tonya Bernard RN - 04/15/2024 11:11 AM CST Clinician: Review and advise and Patient is expecting a call back from [facility] Patient/home care administrator request: Input needed: ongoing elevated blood pressure [...] >= 100 Protocols used: Blood Pressure - [id number] USER OPERATOR * Karime Foster - 04/15/2024 11:04 AM [...] else I can help you with today? USER OPERATOR documented in this encounter Plan of Treatment Upcoming Encounters Date Type Department Care Team (Late st Contact Info) Description 05/17/2024 2:30 PM DIFFUSER OPERATOR Appointment [facility] Medicine [address] [place] [address] [place] [address] [place] [address] 05/25/2024 10:30 AM DIFFUSER OPERATOR Appointment [facility] [place] [address] [facility]eds [address] [place] [address] 05/26/2024 1:00 PM DIFFUSER OPERATOR Appointment Audiology at [facility] [address] [facility] [address] [place] [phone] Robert Leiva AU.D. [address] [place] [address] 06/08/2024 8:15 AM CDT Appointment Pulmonary at [facility] [address] [address] [address] [place] [address] NeurockIsadora APRN, PULLMAN CAR REPAIRER [address] [place] [address] 11/22/2024 2:45 PM CDT Appointment Rheumatology at [facility] [place] [address] [place] [address] [place] [address] Dakota Gould MD 3800 [place] [address] Scheduled Referrals Name Type Priority Associated Diagnoses Orde r Schedule Sleep Services Referral Routine Obstructive sleep apnea Ordered: 04/15/2024 documented as of this encounter Visit Diagnoses Diagnosis Obstructive sleep apnea- Primary Obstructive sleep apnea (adult) (pediatric) documented in this encounter Care Teams Survey Research Analyst Relationship Specialty [place] [address] [place] [address] PCP - General 12/11/11 documented as of this encounter
--- OUTSIDE RECORDS SUMMARY | 2024-05-07 17:33 | XMS_ITS | Encounter Summary ---
Author Organization [facility] Address [address] [place] [address] Care Team Providers Care Electric Meter Technician Name Role Phone Neida Aragon MD Primary Care Provider Reason for Visit * Reason Onset Date Comments Video Visit 04/15/2024 Encounter Details Date Type Department Care Team (Late st Contact Info) Description 04/16/2024 1:30 PM FENCE MAKING MACHINE OPERATOR Telemedicine [facility] [address] [place], [place] [phone] [place]ida Aragon [place] [address] [place] [phone] Primary hypertension (HRC) (Primary Dx); Orthostatic hypotension; [...] did not have improvement in symptoms. Objective: [facility] 02/18/2011 General: WNWD in NAD. Assessment/Plan: [...] Basic Metabolic Panel; Future Neida Aragon MD E MAKING MACHINE OPERATOR documented in this encounter Plan of Treatment Upcoming Encounters Date Type Department Care Team (Late st Contact Info) Description 05/17/2024 2:30 PM FENCE MAKING MACHINE OPERATOR Appointment [facility] [address] [place] [address] [place] [address] [place] [address] 05/25/2024 10:30 AM FENCE MAKING MACHINE OPERATOR Appointment [facility] 393 Sleep Lab Beds 3931 [place] [address] 05/26/2024 1:00 PM FENCE MAKING MACHINE OPERATOR Appointment Audiology at [facility] [address] [facility] [address] [place] [phone] Robert Leiva AU.D. [address] [place] [address] 06/08/2024 8:15 AM CDT Appointment Pulmonary at [address] [address] Neurock, Isadora L, PATTERN CLERK, EGYPTOLOGIST 3931 [place] [address] 11/22/2024 2:45 PM CDT Appointment Rheumatology at [address] [address] Dakota Gould MD 3800 [place] [address] Scheduled Orders Name Type Priority Associated Diagnoses Orde r Schedule Basic Metabolic Panel Lab Routine Primary hypertension (HRC) Expected: 04/16/2024, Expires: 07/15/2024 documented as of this encounter Visit Diagnoses Diagnosis Primary hypertension (HRC)- Primary Unspecified essential hypertension Orthostatic hypotension Tachycardia Tachycardia, unspecified documented in this encounter Care Teams Electric Meter Technician Relationship Specialty Start Date End Date Neida Aragon MD [address] [place], [place] [address]VIEW ELIZ[place]ETH [place] [address] PCP - General 12/11/11 documented as of this encounter
--- OUTSIDE RECORDS SUMMARY | 2024-05-07 17:33 | XMS_ITS | Continuity of Care Document ---
Author Organization [facility] Address [address] [place] [phone] Phone Care Team Providers Care Power System Operator Name Role Phone Will MD CASTANO, Aurelio Unavailable Unavailabl e Advance Directives Directive Yes / No Effective Date File Name No Information Encounters Encounter Description Practice Location Reason(s) For Visit Diagnoses Date Provider Providers Copied on Encounter [facility], [address] [place] [address], [id number], [place] tel:[phone] [facility] Pain [facility] No Information Will Aurelio. [address] [facility] [place], [place], [id number], [place]. tel:[phone] Family History Family Member Type Diagnosis Age At Onset No Information Payers Payer name Insurance type Covered republican ID Authoriza tion(s) No Information Social History [...]
--- OUTSIDE RECORDS SUMMARY | 2024-05-07 17:33 | XMS_ITS | Encounter Summary ---
Author Organization [facility] Address [address] [place] [address] Care Team Providers Care Informatics Physician Name Role Phone Neida Aragon MD Primary Care Provider Encounter Details Date Type Department Care Team (Late st Contact Info) Description 09/15/2014 Telephone [facility] [address] [place] [address] [place] [address] [place] [id number] Social History Tobacco Use Types Packs/Day Years Used Date Smoking Tobacco: Never Assessed Sex and Gender Information Value Date Recorded Sex Assigned at Female 12/11/2023 10:34 PM CDT Gender Identity Female 12/11/2023 10:34 PM CDT Sexual Orientation Not on file documented as of this encounter Plan of Treatment Upcoming Encounters Date Type Department Care Team (Late st Contact Info) Description 05/17/2024 2:30 PM HEAD OF DIGITAL ADVERTISING & INTEGRATION Appointment [facility] [address] [place] [address] [place] [address] [address] [place] [address] 05/25/2024 10:30 AM HEAD OF DIGITAL ADVERTISING & INTEGRATION Appointment [facility] 3931 Sleep Lab Beds 3931 [place], [place] [address] [phone] 05/26/2024 1:00 PM HEAD OF DIGITAL ADVERTISING & INTEGRATION Appointment Audiology at [facility] [address] [facility] [address] [place] [address] Robert Leiva AU.D. [address] [place] [address] 06/08/2024 8:15 AM CDT Appointment Pulmonary at [facility] [address] [facility] [address] [place] [address] Neurock, Isadora Esteves, APPLIER, LEAD TEACHER 3931 [place] [address] 11/22/2024 2:45 PM CDT Appointment Rheumatology at [facility] [address] [place] [address] [place] [address] Dakota Gould MD 3800 [place] [address] documented as of this encounter Visit Diagnoses Not on filedocumented in this encounter Additional Health Concerns Infection Onset Date Last Indicated Resolved Time R/O COVID19 02/19/2022 02/19/2022 02/20/2022 3:39 AM HEAD OF DIGITAL ADVERTISING & INTEGRATION R/O COVID19 02/17/2023 02/17/2023 02/17/2023 9:09 PM HEAD OF DIGITAL ADVERTISING & INTEGRATION documented as of this encounter Care Teams Informatics Physician Relationship Specialty [place] [address] [place] [address] PCP - General 12/11/11 documented as of this encounter
--- OUTSIDE RECORDS SUMMARY | 2024-05-07 17:33 | XMS_ITS | Encounter Summary ---
Author Organization [facility] Address [address] [place] [address] Care Team Providers Care Safety Director Name Role Phone Neida Aragon MD Primary Care Provider Reason for Referral * Procedure/Equipment (Routine) - Authorized Specialty Diagnoses / Procedures Referred By Contac t Referred To Contact Diagnoses NATALY (obstructive sleep apnea) Procedures Sleep Diagnostic Tests: [place] [address] [facility] [place] [address] Referral ID Status Reason Start Date Expiration Date V isits Requested Visits Authorized [id number] Authorized 04/16/2024 07/16/2025 1 1 RTING PROCESS CONSULTANT Encounter Details Date Type Department Care Team (Late st Contact Info) Description 04/16/2024 Notes/Orders [facility] [address] [place] [address] [place] [address] [place] [phone] NATALY (obstructive sleep apnea) (Primary Dx) Social [...] st Contact Info) Description 05/17/2024 2:30 PM REPORTING PROCESS CONSULTANT Appointment [facility] [address] [place] [address] [place] [address] [place] [address] 05/25/2024 10:30 AM REPORTING PROCESS CONSULTANT Appointment [facility] [place] [address] Sleep Lab Beds 3931 [place] [address] 05/26/2024 1:00 PM REPORTING PROCESS CONSULTANT Appointment Audiology at [facility] [address] [place] [address] [place] [phone] Robert Leiva AU.D. [address] [place] [address] 06/08/2024 8:15 AM CDT Appointment Pulmonary at [address] [address] Neurock, Isadora Esteves, DIP TANKER, DISEASE CONTROL INSPECTOR 3931 [place] [address] 11/22/2024 2:45 PM CDT Appointment Rheumatology at [address] [address] Dakota Gould MD 3800 [place] [address] Scheduled Orders Name Type Priority Associated Diagnoses Orde r Schedule Sleep Diagnostic Tests: HST Sleep Study Routine NATALY (obstructive sleep apnea) 1 Occurrences starting 04/16/2024 documented as of this encounter Visit Diagnoses Diagnosis NATALY (obstructive sleep apnea)- Primary Obstructive sleep apnea (adult) (pediatric) documented in this encounter Care Teams Safety Director Relationship Specialty [place] [address] [place] [address] PCP - General 12/11/11 documented as of this encounter
--- OUTSIDE RECORDS SUMMARY | 2024-05-07 17:34 | XMS_ITS | Encounter Summary ---
Author Organization [facility] Address [address] [place] [address] Care Team Providers Care Car Body Mechanic Name Role Phone Neida Aragon MD Primary Care Provider Reason for Visit * Reason Comments FORGETFULNESS Encounter Details Date Type Department Care Team (Late st Contact Info) Description 05/07/2024 Nurse Triage [facility] Medicine [address] [place], [place] [phone] Neida Aragon MD [address] [place] [phone] FORGETFULNESS Social History Tobacco Use Types Packs/Day [...] the triager Protocols used: Dementia Symptoms and [id number], Confusion - [id number]-[id number] CAL RECEPTIONIST ASSISTANT documented in this encounter Plan of Treatment Upcoming Encounters Date Type Department Care Team (Late st Contact Info) Description 05/17/2024 2:30 PM MEDICAL RECEPTIONIST ASSISTANT Appointment [facility] Medicine [address] [place], [place] 8[address] Neida Aragon MD [address] [place] [address] ELIZAB[place] GREGG [phone] 05/25/2024 10:30 AM MEDICAL RECEPTIONIST ASSISTANT Appointment [facility] 3931 Sleep Lab Beds 3931 [place] [address] 05/26/2024 1:00 PM MEDICAL RECEPTIONIST ASSISTANT Appointment Audiology at [facility] [address] [address] [address] [place] [phone] Robert Leiva AU.D. [address] [place] [address] 06/08/2024 8:15 AM CDT Appointment Pulmonary at [facility] [address] [address] [address] [place] [address] Neurock, Isadora Esteves APRN, RAIL PROJECT ENGINEER 3931 [place] [address] 11/22/2024 2:45 PM CDT Appointment Rheumatology at [facility] [address] [address] [address] [place] [address] Dakota Gould MD 3800 [place] [address] documented as of this encounter Visit Diagnoses Not on filedocumented in this encounter Care Teams Car Body Mechanic Relationship Specialty Start Date End Date Neida Aragon MD [address] [place] [address] [place] [address] PCP - General 12/11/11 documented as of this encounter
--- OUTSIDE RECORDS SUMMARY | 2024-05-07 17:34 | XMS_ITS | Clinical Summary ---
Author Organization [facility] Address [address], [place] [address] Care Team Providers Care Outboard Motorboat Rigger Name Role Phone Neida Aragon MD Primary Care Provider Source Comments You are receiving this document as you are listed as the primary care provider,follow-up provider, or the patient has been referred to you for consultation.This is in compliance with the Medicare and[facility] EHR Incentive Program,which states Providers who transition their patient to another setting of careor provider of care or refers their patient to another provider of care shouldprovide summary care record for each transition of care or referral. [employer] Allergies Active Allergy Reactions Criticality Noted Date [...] needed for Pain. Active Prenat Vit-Fe Gly Fyu-EW-Bifvp (ENBRACE HR) CAPS Take 1 Capsule by [...] 10/19/2020 Posttraumatic stress disorder 09/18/2020 Fibromyalgia 06/23/2019 halfway current use of therapeutic drug 2019 Systemic [...] findings of aneurysm on CTA head at [facility] 03/2023. Acquired hypothyroidism 01/10/2009 Obesity 01/10/2009 Hypertension [...] (11/20/2016): Normal RUE EMG - note from [facility] 05/04/2012 reviewed. EMG results argue against myasthenia gravis and Lamber-Eaton myasthenic syndrome. 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 08/29/2008 03/25/2023 IFG (impaired fasting glucose) 09/18/2020 Encounters Date Type Department Care Team Description 05/07/2024 Nurse Triage [place] [id number] Neida Aragon MD FORGETFULNESS 04/21/2024 [facility] Pulmonary Medicine [address] [place] [address] Mychart, Generic Provider 04/20/2024 Refill Rheumatology at [facility] [address] [place] [address] Dakota Gould MD Refill 04/16/2024 1:30 PM LIEUTENANT/DEPUTY Telemedicine [facility] [address] [place] [address] eNida Aragon MD Primary hypertension (HRC) (Primary Dx); Orthostatic hypotension; Tachycardia 04/16/2024 Notes/Orders [facility] [address] [place] [address] Neida Aragon MD NATALY (obstructive sleep apnea) (Primary Dx) 04/15/2024 Nurse Triage [facility] [address] [place] [address] Neida Aragon MD Follow Up Sleep Apnea 04/07/2024 1:00 PM LIEUTENANT/DEPUTY Ancillary Procedure [facility] at [facility] [address] [address] [address] [place] [address] Neida Aragon MD Encounter for screening mammogram for malignant neoplasm of breast 03/29/2024 3:20 PM LIEUTENANT/DEPUTY Lab Visit [facility] [address] [place] [address] Systemic lupus erythematosus, unspecified SLE type, unspecified organ involvement status (HRC); Acquired hypothyroidism (HRC); Hypovolemia; Hypertension, unspecified type (HRC) 03/29/2024 2:30 PM LIEUTENANT/DEPUTY Office Visit [facility] Medicine [address] [place] [address] Neida Aragon MD Encounter for Medicare annual [...] 70's Coronary Artery Disease Maternal Grandmother Rosalba VA DVT/PE Maternal Grandmother Rosalba Diabetes Maternal Grandmother [...] Comments Blood Pressure 119/81 03/29/2024 2:20 PM LIEUTENANT/DEPUTY Pulse 109 03/29/2024 2:20 PM LIEUTENANT/DEPUTY Temperature 37.1 C (98.7 F) 02/17/2023 9:38 AM LIEUTENANT/DEPUTY Respiratory Rate 14 07/17/2023 12:55 PM CDT Oxygen Saturation 96% 08/06/2023 1:32 PM CDT Inhaled Oxygen Concentration - - Weight 94.5 kg (208 lb 6.4 oz) 03/29/2024 2:20 P M LIEUTENANT/DEPUTY Height 165.1 cm (5' 5) 03/29/2024 2:20 PM LIEUTENANT/DEPUTY Body Mass Index 34.68 03/29/2024 2:20 PM LIEUTENANT/DEPUTY Plan of Treatment Upcoming Encounters Date Type Department Care Team (Late st Contact Info) Description 05/17/2024 2:30 PM LIEUTENANT/DEPUTY Appointment [facility] Medicine [address] [place] [address] [place] [id number] [place] [address] 05/25/2024 10:30 AM LIEUTENANT/DEPUTY Appointment Specialty [place] [address] [facility] [address] [place] [address] 05/26/2024 1:00 PM LIEUTENANT/DEPUTY Appointment Audiology at [facility] [address] [facility] [address] [place] [phone] Robert Leiva AU.D. [address] [place] [address] 06/08/2024 8:15 AM CDT Appointment Pulmonary at [facility] [address] [place] [address] [place] [address] Neurock, Isadora Esteves, RESIDENTIAL HOUSEKEEPER, COSMETOLOGY TEACHER [address] [place] [address] 11/22/2024 2:45 PM CDT Appointment Rheumatology at [facility] [address] [address] Dakota Gould MD [address] [place] [address] [phone] Health Maintenance Due Date Last Done Comments [...] PETEY W CAD Routine 04/07/2024 1:04 PM LIEUTENANT/DEPUTY Encounter for screening mammogram for malignant neoplasm of breast COMPLETE BLOOD COUNT-W/DIFF Routine 03/29/2024 3:24 PM LIEUTENANT/DEPUTY Systemic lupus erythematosus, unspecified SLE type, unspecified organ involvement status (HRC) MAGNESIUM Routine 03/29/2024 3:24 PM LIEUTENANT/DEPUTY Hypovolemia Hypertension, unspecified type (HRC) BASIC METABOLIC PANEL Routine 03/29/2024 3:24 PM LIEUTENANT/DEPUTY Hypovolemia Hypertension, unspecified type (HRC) TSH, SENSITIVE Routine 03/29/2024 3:24 PM LIEUTENANT/DEPUTY Acquired hypothyroidism (HRC) C-REACTIVE PROTEIN Routine 03/29/2024 3: 24 PM LIEUTENANT/DEPUTY Systemic lupus erythematosus, unspecified SLE type, unspecified organ involvement status (HRC) CBC AND DIFFERENTIAL PANEL Routine 03/29/2024 3:24 PM LIEUTENANT/DEPUTY Systemic lupus erythematosus, unspecified SLE type, unspecified organ involvement status (HRC) AST Routine 03/29/2024 3:24 PM LIEUTENANT/DEPUTY Systemic lupus erythematosus, unspecified SLE type, unspecified organ involvement status (HRC) DXA BONE DENSITY SPINE/HIP/FOREARM Routine 10/22/2023 3:12 PM CDT Hyperparathyroidism (HRC) HGB A1C Routine 06/12/2023 12:41 PM CDT Nocturia LIPID PANEL & DIRECT LDL (IF NEEDED) Routine 03/26/2023 11:16 AM LIEUTENANT/DEPUTY Screening cholesterol level HEPATITIS C ANTIBODY, WITH [...] 3D Petey W CAD (04/07/2024 1:04 PM LIEUTENANT/DEPUTY) Anatomical Region Laterality Modality Breast Bilateral Mammography Impressions 04/07/2024 1:18 PM LIEUTENANT/DEPUTY : ACR BI-RADS Category 1: Negative RECOMMENDATION: Follow Up Imaging in 12 months - Bilateral The results and recommendations of this examination will be communicated to the patient. Narrative 04/07/2024 1:18 PM LIEUTENANT/DEPUTY MM MAMMOGRAM SCREENING BILAT W 3D PETEY W CAD performed on 04/07/24 [facility] Accredited Facility: [place] [address] Compared to: 03/26/2023 MM Mammogram Screening Bilat [...] (ABNORMAL) Complete Blood Count-W/Diff (03/29/2024 3:24 PM LIEUTENANT/DEPUTY) WBC 7.8 3.5 - 10.5 x10(9)/L 03/29/2024 3:30 PM [facility] RBC 5.33(H) 3.90 - 5.03 x10(12)/L 03/29/2024 3:30 PM [facility] Hemoglobin 15.5 12.0 - 15.5 g/dL 03/29/2024 3:30 PM [facility] HCT 46.5(H) 34.9 - 44.5 % 03/29/2024 3:30 PM [facility] MCV 87.2 80.0 - 100.0 fL 03/29/2024 3:30 PM [facility] MCH 29.1 27.6 - 33.3 pg 03/29/2024 3:30 PM [facility] MCHC 33.3 31.5 - 35.2 g/dL 03/29/2024 3:30 PM [facility] RDW 12.5 11.9 - 15.5 % 03/29/2024 3:30 PM [facility] Platelets 316 150 - 450 x10(9)/L 03/29/2024 3:30 PM [facility] Automated NRBC 0 <=0 /100 WBC 03/29/2024 3:30 PM [facility] Neutrophil Absolute 5.6 1.7 - 7.0 10(9)/L 03/29/2024 3:30 PM [facility] Lymphocyte Absolute 1.6 1.0 - 4.8 10(9)/L 03/29/2024 3:30 PM [facility] Monocyte Absolute 0.5 0.2 - 0.9 10(9)/L 03/29/2024 3:30 PM [facility] Eosinophil Absolute 0.1 0.0 - 0.5 10(9)/L 03/29/2024 3:30 PM [facility] Basophil Absolute 0.1 0.0 - 0.3 10(9)/L 03/29/2024 3:30 PM [facility] Immature Granulocyte % 0.4 0.0 - 0.5 % 03/29/2024 3:30 PM [facility] Blood Venipuncture / Unknown 03/29/2024 3:24 PM LIEUTENANT/DEPUTY 03/29/2024 3:24 PM LIEUTENANT/DEPUTY Dakota Gould MD LAB_1 Performing Organization Address [facility] [[email or web address]] Co de Phone Number [facility] [address] [place] [address] * TSH (03/29/2024 3:24 PM LIEUTENANT/DEPUTY) [facility] TSH, Sensitive 1.21 0.30 - 4.50 uIU/mL 03/29/2024 8:19 PM LIEUTENANT/DEPUTY [facility] Blood Venipuncture / Unknown 03/29/2024 3:24 PM LIEUTENANT/DEPUTY 03/29/2024 3:24 PM LIEUTENANT/DEPUTY Neida Aragon MD LAB_1 [facility] [address] [place] [address], [facility] * (ABNORMAL) Basic Metabolic Panel (03/29/2024 3:24 PM LIEUTENANT/DEPUTY) [facility] Sodium 142 136 - 145 mmol/L 03/29/2024 5:48 PM [facility] Potassium 4.1 3.5 - 5.1 mmol/L 03/29/2024 5:48 PM [facility] Chloride 105 98 - 109 mmol/L 03/29/2024 5:48 PM [facility] CO2 28 20 - 29 mmol/L 03/29/2024 5:48 PM [facility] Anion Gap 9 6 - 16 mmol/L 03/29/2024 5:48 PM [facility] Calcium 10.9(H) 8.4 - 10.4 mg/dL 03/29/2024 5:48 PM [facility] BUN 16 7 - 26 mg/dL 03/29/2024 5:48 PM [facility] Creatinine 1.05(H) 0.55 - 1.02 mg/dL 03/29/2024 5:48 PM [facility] Glucose 135(H) 70 - 100 mg/dL 03/29/2024 5:48 PM [facility] Comment:The given reference range is for the fasting state. Non-fasting reference range for glucose is 70 - 180 mg/dL. GFR, Estimated >60 >60 mL/min/1.7 3m2 03/29/2024 5:48 PM [facility] Hours Fasting 0.1 8 - 12 Hours 03/29/2024 5:48 PM [facility] Comment:Lab unable to obtain patient's fasting status at time of specimen collection. Blood Venipuncture / Unknown 03/29/2024 3:24 PM LIEUTENANT/DEPUTY 03/29/2024 3:24 PM LIEUTENANT/DEPUTY Neida Aragon MD LAB_1 [facility] [address] [place] [address], [place] * Magnesium (03/29/2024 3:24 PM LIEUTENANT/DEPUTY) [facility] Magnesium 2.1 1.6 - 2.6 mg/dL 03/29/2024 5:48 PM LIEUTENANT/DEPUTY [facility] Blood Venipuncture / Unknown 03/29/2024 3:24 PM LIEUTENANT/DEPUTY 03/29/2024 3:24 PM LIEUTENANT/DEPUTY Neida Aragon MD LAB_1 Performing Organization Address [facility] [[email or web address]] Co de Phone Number [facility] [phone] [place] [address] * C-Reactive Protein (03/29/2024 3:24 PM LIEUTENANT/DEPUTY) [facility] C-Reactive Protein 0.2 0.0 - 0.5 mg/dL 03/29/2024 5:48 PM LIEUTENANT/DEPUTY [facility] Blood Venipuncture / Unknown 03/29/2024 3:24 PM LIEUTENANT/DEPUTY 03/29/2024 3:24 PM LIEUTENANT/DEPUTY Dakota Gould MD LAB_1 Performing Organization Address [facility] [[email or web address]] Co de Phone Number [facility] [address] [place] [address] * AST (03/29/2024 3:24 PM LIEUTENANT/DEPUTY) [facility] AST (SGOT) 36 10 - 40 U/L 03/29/2024 5:48 PM LIEUTENANT/DEPUTY [facility] Blood Venipuncture / Unknown 03/29/2024 3:24 PM LIEUTENANT/DEPUTY 03/29/2024 3:24 PM LIEUTENANT/DEPUTY Dakota Gould MD LAB_1 Performing Organization Address [facility] de Phone Number [facility] [phone] [place] [address] * DXA Bone Density Spine/Hip/Forearm (10/22/2023 3:12 PM CDT) [facility] DXA Lumbar Spine Bone Mineral Density [...] not included. Patient Name: Annie Goodman Densitometer: Libratone W Appt Dept/Resource: Phillip Bone Density FOX [...] trabecular bone, and is derived from the jucdx-rn-lelju changes of bone density embedded in the [...] * Hgb A1C (06/12/2023 12:41 PM CDT) [facility] Hemoglobin A1C (Rapid) 5.3 <=5.6 % 06/12/2023 2:53 PM T [facility] Estimated Average Glucose (Calc) 105 < 117 mg/dL 06/12/2023 2:53 PM [facility] Comment:Estimated average gl ucose (eAG) converts A1c into glucose units (mg/dL) and estimates average glucose over the past approximately 3 months. The eAG reference interval (<117 mg/dL) corresponds to an A1c of <5.7%. Blood Venipuncture / Unknown 06/12/2023 12:41 PM CDT 06/12/2023 12:41 PM CDT Narrative [facility] - 06/12/2023 2:53 PM CDT The test method used for this Hemoglobin A1c result can experience interference from elevated hemoglobin and other hemoglobin variants. In patients with results that do not correlate clinically, contact the lab for further direction. Neida Aragon MD LAB_1 [facility] [address] [place] [address] * Lipid Panel and Direct LDL(If Needed) (03/26/2023 11:16 AM LIEUTENANT/DEPUTY) [facility] Cholesterol 176 0 - 199 mg/dL 03/26/2023 12:15 PM [facility] Triglyceride 70 <=149 mg/dL 03/26/2023 12:15 PM [facility] HDL Cholesterol 83 >=40 mg/dL 12:15 PM [facility] LDL, Calculated 79 <130 mg/dL 12:15 PM [facility] Non HDL Chol, Calculated 93 <=159 mg/dL 03/26/2023 12:15 PM [facility] Cholesterol/HDL Ratio 2.1 <=5.0 03/26/2023 12:15 PM [facility] Hours Fasting 0.1 8 - 12 Hours 03/26/2023 12:15 PM [facility] Comment:Lab unable to obtain patient's fasting status at time of specimen collection. Blood Venipuncture / Unknown 03/26/2023 11:16 AM LIEUTENANT/DEPUTY 03/26/2023 11:16 AM LIEUTENANT/DEPUTY Neida Aragon MD LAB_1 Performing Organization Address City/[facility]/ZIP Co de Phone Number [facility] [address] [place] [address] [phone] * HCAB - Hepatitis C Virus Wendy with Reflex In-House (06/14/2019 2:37 PM CDT) [facility] Hepatitis C Antibody Negative (Non Reactive) Negative (Non Reactive) 06/14/2019 7:06 PM CDT [facility] Comment:Antibodies to HCV no t detected. Does not exclude the possiblity of exposure to HCV. Blood Venipuncture / Unknown 06/14/2019 2:37 PM CDT 06/14/2019 2:38 PM CDT Dakota Gould MD LAB_1 [facility] [address] * HIV-1 P24 AND HIV-1/HIV-2 ANTIBODIES (06/12/2015 9:40 AM CDT) [facility] HIV-1 p24 Ag and HIV-1/HIV-2 Ab Nonreactive Non-React mu HP CONVERSION 06/12/2015 9:40 AM CDT 06/12/2015 12:16 PM CDT Narrative HP CONVERSION - 06/12/2015 1:21 PM CDT Performed at [address] [address] CLIA number [id number] Jin Jeffries MD LAB_1 HP CONVERSION from Last 3 Months or Most Recently Relevant to Health Maintenance Care Teams Outboard Motorboat Rigger Relationship Specialty [place] [address] [address] [place] [address] PCP - General 12/11/11
[2024-05-07 17:51] LABS: Lactate* 0.9 mmol/L (0.5-1.9)
[2024-05-07 17:52] LABS: Basophils Absolute Auto 0.07 K/uL (0.00-0.30); Basophils Percent Auto 0.7 % (0.0-3.0); Eosinophils Absolute Auto 0.08 K/uL (0.00-0.50); Eosinophils Percent Auto 0.8 % (0.0-7.0); Hematocrit 45.3 % (33.0-51.0); Hemoglobin* 14.8 gm/dL (12.0-16.0); Immature Granulocytes Abs Auto 0.01 K/uL (0.00-0.30); Immature Granulocytes Pct Auto 0.1 %; Lymphocytes Percent Auto 19.4 % (20-44); Mean Corpuscular HGB Conc 33 gm/dL (32-36); Mean Corpuscular Hemoglobin 29 pg (26-34); Mean Corpuscular Volume 88 fL (80-100); Monocytes Percent Auto 6.3 % (0.0-11.0); Neutrophils Percent Auto 72.7 % (42.0-72.0); Platelet Count* 224 K/uL (140-440); RDW Coefficient of Variation % 12.8 % (11.5-15.5); Red Blood Count 5.16 m/uL (4.00-5.20); White Blood Count* 9.67 K/uL (4.50-11.00)
[2024-05-07 18:03] LABS: Albumin* 4.7 g/dL (3.3-5.0); Chloride* 101 mmol/L (96-114)
[2024-05-07 18:04] LABS: Potassium* 3.8 mmol/L (3.6-5.1); Slide Review Reflex No; Sodium* 138 mmol/L (135-149)
[2024-05-07 18:06] LABS: Alanine Aminotransferase* 25 U/L (4-35); Alkaline Phosphatase* 100 U/L (40-150); Anion Gap 12 mEq/L (7-15); Aspartate Amino Transferase* 34 U/L (12-35); Bilirubin Total* 0.4 mg/dL (0.1-1.5); Blood Urea Nitrogen* 28 mg/dL (7-30); Carbon Dioxide* 25 mmol/L (20-32); Est. Creatinine Clearance* 55.18; Estimated Glomerular Filt Rate 65 ml/min; Total Protein* 7.8 g/dL (6.0-8.3)
[2024-05-07 18:07] LABS: Calcium* 11.1 mg/dL (8.4-10.6); Glucose* 87 mg/dL (60-115)
[2024-05-07 18:11] LABS: C Reactive Protein* < 0.5 mg/dL (0.5-1.0)
[2024-05-07 18:19] LABS: NT Pro B Type NatriureticPept* < 20 pg/mL; Troponin I* < 0.01 ng/mL (0.01-0.04)
[2024-05-07 18:37] LABS: TSH With Reflex to FT4* 0.637 uIU/mL (0.270-4.200)
[2024-05-07 18:39] LABS: Erythrocyte SedimentationRate* 7 mm/hr (2-20)
[2024-05-07] MEDS: 0.9 % SODIUM CHLORIDE 500 ML 500 ML IV (18:56)
--- OUTSIDE RECORDS SUMMARY | 2024-05-10 17:02 | XMS_ITS | Encounter Summary ---
Author Organization [facility] Address [address] [place] [address] Care Team Providers Care Clam Dredge Boat Captain Name Role Phone Neida Aragon MD Primary Care Provider Encounter Details Date Type Department Care Team (Late st Contact Info) Description 09/15/2014 Telephone [facility] [address] [place] [address] [place] [address] [place] [phone] Social History Tobacco Use Types Packs/Day Years Used Date Smoking Tobacco: Never Assessed Sex and Gender Information Value Date Recorded Sex Assigned at Female 12/11/2023 10:34 PM CDT Gender Identity Female 12/11/2023 10:34 PM CDT Sexual Orientation Not on file documented as of this encounter Plan of Treatment Upcoming Encounters Date Type Department Care Team (Late st Contact Info) Description 05/17/2024 2:30 PM COMMERCIAL OCEAN CLAMMER Appointment [facility] [address] [place] [address] [place] [address] [address] [place] [address] 05/25/2024 10:30 AM COMMERCIAL OCEAN CLAMMER Appointment Specialty [facility] [address] [facility]eds [address] [place], [place] [address] [phone] 05/26/2024 1:00 PM COMMERCIAL OCEAN CLAMMER Appointment Audiology at [facility] [address] [facility] [address] [place] [address] Robert Leiva AU.D. [address] [place] [address] 06/08/2024 8:15 AM CDT Appointment Pulmonary at [facility] [address] [facility] [address] [place] [address] Neurock, Isadora Esteves, STAMP CLASSIFIER, CD MANUFACTURING SUPERVISOR [address] [place] [address] 11/22/2024 2:45 PM CDT Appointment Rheumatology at [facility] [address] [place] [address] [place] [address] Dakota Gould MD [address] [place] [address] documented as of this encounter Visit Diagnoses Not on filedocumented in this encounter Additional Health Concerns Infection Onset Date Last Indicated Resolved Time R/O COVID19 02/19/2022 02/19/2022 02/20/2022 3:39 AM COMMERCIAL OCEAN CLAMMER R/O COVID19 02/17/2023 02/17/2023 02/17/2023 9:09 PM COMMERCIAL OCEAN CLAMMER documented as of this encounter Care Teams Clam Dredge Boat Captain Relationship Specialty [place] [address] [place] [address] PCP - General 12/11/11 documented as of this encounter
--- OUTSIDE RECORDS SUMMARY | 2024-05-10 17:02 | XMS_ITS | Clinical Summary ---
Author Organization [employer] Address [address] [place] [address] Phone Care Team Providers Care Atv Mechanic Name Role Phone Neida Aragon MD Primary Care Provider [phone] Source Comments [employer] is fully rolled out on [employer]. Last update 09/02/08.[employer] Allergies Active Allergy Reactions Criticality Noted Date [...] Other Other (see comments) 02/03/2015 Colophony,Balsam of [place],2-Oh ethyl methacrylate,MMA,Co mpositae mix,EGDMA,2-Oh ethyl acrylate,2-Oh propyl [...] CDT): A: History of REM diagnosed by [employer] 10 years ago. Today, c/o intermittent very [...] Body Mass Index 34.54 01/30/2015 10:09 AM NURSE AIDE EVALUATOR Plan of Treatment Health Maintenance Due Date [...] to complete this topic Insurance [place] [id number] [facility] MEDICARE Care Teams Atv Mechanic Relationship Specialty [place] [address] [address] [place] [address] PCP - General Outside Provider 08/25/14
--- OUTSIDE RECORDS SUMMARY | 2024-05-10 17:02 | XMS_ITS | Encounter Summary ---
Author Organization [facility] Address [address] [place] [address] Care Team Providers Care Ostomy Nurse Name Role Phone Neida Aragon MD Primary Care Provider Reason for Referral * Consult/Transfer Care (Routine) - New Request Specialty Diagnoses / Procedures Referred By Ross mckenna Referred To Contact Diagnoses Hearing loss, unspecified hearing loss type, [place] [address] [facility] [id number] Referral ID Status Reason Start Date Expiration Date V isits Requested Visits Authorized [id number] New Request 03/29/2024 06/28/2025 1 1 Scheduling Instructions Your clinician has recommended an appointment with [facility]. You may call [phone] to schedule your appointment. We suggest you call your health insurance company about your coverage and benefits for this appointment. Question Answer Appointment Urgency? Non-Urgent SFER CAR OPERATOR DRIER * Therapies (Routine) - New Request Specialty Diagnoses / Procedures Referred By Ross mckenna Referred To Contact Diagnoses [place] [address] [place] [id number] Referral ID Status Reason Start Date Expiration Date V isits Requested Visits Authorized [id number] New Request 03/29/2024 03/29/2025 1 1 Scheduling Instructions Your clinician has recommended an appointment with Rehabilitation Services. You can quickly schedule your appointment by signing in to your online account at [email or web address] or through the text message you may have received. You can also make an appointment by calling [phone]. We suggest you call your health insurance company about your coverage and benefits for this appointment. Question Answer Appointment Urgency? Non-Urgent Requested Services Evaluate and treat Reason for Visit Cognitive Eval Select Specific Cognitive Eval MOCA May use saline for irrigation or cleansing Yes dexamethasone use Yes May check glucose per protocol (see policy link below) or if patient has symptoms? Yes SFER CAR OPERATOR DRIER * Procedure/Equipment (Routine) - Incomplete Specialty Diagnoses / Procedures Referred By Contac t Referred To Contact Diagnoses Encounter for screening mammogram for malignant neoplasm of breast Procedures MM Mammogram Screening Bilat W 3D [place] [address] [place] [id number] Referral ID Status Reason Start Date Expiration Date V isits Requested Visits Authorized [id number] Incomplete 03/29/2024 06/28/2025 1 1 SFER CAR OPERATOR DRIER Reason for Visit * Reason Comments Annual Exam Encounter Details Date Type Department Care Team (Latest Contact Info) Description 03/29/2024 2:30 PM TRANSFER CAR OPERATOR DRIER Office Visit [facility] [address] [facility] [place] [address] [place] [address] [phone] Encounter for Medicare annual wellness exam (Primary [...] Comments Blood Pressure 119/81 03/29/2024 2:20 PM TRANSFER CAR OPERATOR DRIER Pulse 109 03/29/2024 2:20 PM TRANSFER CAR OPERATOR DRIER Temperature - - Respiratory Rate - - Oxygen Saturation - - Inhaled Oxygen Concentration - - Weight 94.5 kg (208 lb 6.4 oz) 03/29/2024 2:20 P M TRANSFER CAR OPERATOR DRIER Height 165.1 cm (5' 5) 03/29/2024 2:20 PM TRANSFER CAR OPERATOR DRIER Body Mass Index 34.68 03/29/2024 2:20 PM TRANSFER CAR OPERATOR DRIER documented in this encounter Patient Instructions * Patient Instructions* Neida Aragon MD - 03/29/2024 2:30 PM TRANSFER CAR OPERATOR DRIER Images from the original note were not included. 1. I recommend a mammogram yearly - due now. Call [phone] for appointment. 2. I recommend colon cancer [...] 11. Please call the Endocrinology dept. at [phone] to schedule your appointment with Dr. Cao. 12. Please call the Audiology dept. at [phone] to schedule your appointment. 13. Please call Occupational Therapy at [phone] to schedule your appointment for cognitive evaluation [...] most cost-effective medications near you, go to https://www.[employer]/hp/pharmacy/drug-cost/index.html You can also find more information in this handout. Health care can be complicated. Sometimes, it can help to share your health information with your family or caregivers. (Caregivers can be friends as well as family.) How much you share is up to you.Here is a helpful link: https://www.[employer]/blog/dfbvwi-osss-vhftu-benefits/ We care about nutrition, how much physical [...] good repair and are slip-resistant. ?? 2002 [employer] P/SENIORS /#542099 Learning About Eating More Fruits and Vegetables [...] can you learn more? 1. Go to https://www.Mimosa.[employer]/healthlibrary. 2. Enter F050 in the search box. Current as of: December 18, 2022 Content Version: 14.2 ?? [address] [facility] UP Online. Care instructions adapted under license by your healthcare professional. If you have questions about a medical condition or this instruction, always ask your healthcare professional. [employer] disclaims any warranty or liability for your use of this information. SFER CAR OPERATOR DRIER documented in this encounter Progress Notes * [...] out for each meal. They have a glue plant operator. She can access [employer] for grocery shopping. She is on disability. She has a glue plant operator that cleans house and does her laundry [...] Instructions. Neida Aragon MD 03/29/2024, 6:31 PM SFER CAR OPERATOR DRIER documented in this encounter Plan of Treatment Upcoming Encounters Date Type Department Care Team (Late st Contact Info) Description 05/17/2024 2:30 PM TRANSFER CAR OPERATOR DRIER Appointment [facility] [address] [place] [address] Neida Aragon MD [address] [place] [address] [place] [place] [address] 05/25/2024 10:30 AM TRANSFER CAR OPERATOR DRIER Appointment Specialty Center [address] [facility] [address] [address] [place] [address] 05/26/2024 1:00 PM TRANSFER CAR OPERATOR DRIER Appointment Audiology at [facility] [address] [facility] [address] [place] [phone] Robert Leiva AU.D. [address] [place] [address] 06/08/2024 8:15 AM CDT Appointment Pulmonary at [address] [address] [place] [address] Neurock, Isadora L, SENIOR PEOPLESOFT DEVELOPER, LOOM CHANGEOVER OPERATOR 39[address] [place], [place] [address] 11/22/2024 2:45 PM CDT Appointment Rheumatology at [address] [address] Dakota Gould MD 3800 [place] [address] Scheduled Orders Name Type Priority Associated Diagnoses [...] 3D Petey W CAD (04/07/2024 1:04 PM TRANSFER CAR OPERATOR DRIER) Anatomical Region Laterality Modality Breast Bilateral Mammography Impressions 04/07/2024 1:18 PM TRANSFER CAR OPERATOR DRIER : ACR BI-RADS Category 1: Negative RECOMMENDATION: Follow Up Imaging in 12 months - Bilateral The results and recommendations of this examination will be communicated to the patient. Narrative 04/07/2024 1:18 PM TRANSFER CAR OPERATOR DRIER MM MAMMOGRAM SCREENING BILAT W 3D PETEY W CAD performed on 04/07/24 FDA Accredited Facility: [place] [address] Compared to: 03/26/2023 MM Mammogram Screening Bilat W 3D Petey W CAD, 01/13/2019 MM Mammogram Screening Bilat W 3D Petey W CAD, and 09/13/2014 MM Mammogram Screening Bilat W CAD FINDINGS: Bilateral screening mammogram was performed with the assistance of Computer-Aided Detection and breast tomosynthesis. There are scattered areas of fibroglandular density. There is no radiographic evidence of malignancy. Neida Aragon MD [facility] documented in this encounter Visit [...] vaccination Need for prophylactic vaccination with combined iiadhpamqw-hybttlo-yojoldcfp (DTP) vaccine Need for shingles vaccine Need for prophylactic vaccination and inoculation against varicella Need for influenza vaccination Need for prophylactic vaccination and inoculation against influenza Need for COVID-19 vaccine Encounter for screening mammogram for malignant neoplasm of breast Other screening mammogram documented in this encounter Care Teams Ostomy Nurse Relationship Specialty [place] [address] [place] [id number] PCP - General 12/11/11 documented as of this encounter
--- OUTSIDE RECORDS SUMMARY | 2024-05-10 17:02 | XMS_ITS | Encounter Summary ---
Author Organization [facility] Address [address] [place] [address] Care Team Providers Care Yard Driver Name Role Phone Neida Aragon MD Primary Care Provider Encounter Details Date Type Department Care Team (Late st Contact Info) Description 03/29/2024 3:20 PM INDUSTRIAL GARAGE SERVICER Lab Visit Agency Laboratory [address] [place] [address] Systemic lupus erythematosus, unspecified SLE type, unspecified [...] st Contact Info) Description 05/17/2024 2:30 PM INDUSTRIAL GARAGE SERVICER Appointment Agency Family [facility] [address] [place] [address] Neida Aragon MD [address] [place] [address] [place] [address] 05/25/2024 10:30 AM INDUSTRIAL GARAGE SERVICER Appointment Specialty [facility] [address] [place] [address] 05/26/2024 1:00 PM INDUSTRIAL GARAGE SERVICER Appointment Audiology at [facility] [address] [facility] [address] [place] [phone] Robert Leiva AU.D. [address] [place] [address] 06/08/2024 8:15 AM CDT Appointment Pulmonary at [facility] [address] [address] [address] [place] [address] Neurock, Isadora Esteves, PROFESSOR OF PUBLIC ADMINISTRATION, SWITCH FOREMAN [address] [place] [address] 11/22/2024 2:45 PM CDT Appointment Rheumatology at [facility] [address] [place] [address] [place] [address] Dakota Gould MD [address] [place] [address] documented as of this encounter Procedures Procedure Name Priority Date/Time Associated Diagnosis Comments CBC AND DIFFERENTIAL PANEL Routine 03/29/2024 3:24 PM INDUSTRIAL GARAGE SERVICER Systemic lupus erythematosus, unspecified SLE type, unspecified organ involvement status (HRC) COMPLETE BLOOD COUNT-W/DIFF Routine 03/29/2024 3:24 PM INDUSTRIAL GARAGE SERVICER Systemic lupus erythematosus, unspecified SLE type, unspecified organ involvement status (HRC) TSH, SENSITIVE Routine 03/29/2024 3:24 PM INDUSTRIAL GARAGE SERVICER Acquired hypothyroidism (HRC) BASIC METABOLIC PANEL Routine 03/29/2024 3:24 PM INDUSTRIAL GARAGE SERVICER Hypovolemia Hypertension, unspecified type (HRC) MAGNESIUM Routine 03/29/2024 3:24 PM INDUSTRIAL GARAGE SERVICER Hypovolemia Hypertension, unspecified type (HRC) C-REACTIVE PROTEIN Routine 03/29/2024 3: 24 PM INDUSTRIAL GARAGE SERVICER Systemic lupus erythematosus, unspecified SLE type, unspecified organ involvement status (HRC) AST Routine 03/29/2024 3:24 PM INDUSTRIAL GARAGE SERVICER Systemic lupus erythematosus, unspecified SLE type, unspecified organ involvement status (HRC) documented in this encounter Results * (ABNORMAL) Complete Blood Count-W/Diff (03/29/2024 3:24 PM INDUSTRIAL GARAGE SERVICER) WBC 7.8 3.5 - 10.5 x10(9)/L 03/29/2024 3:30 PM [facility] RBC 5.33(H) 3.90 - 5.03 x10(12)/L 03/29/2024 3:30 PM [facility] Hemoglobin 15.5 12.0 - 15.5 g/dL 03/29/2024 3:30 PM [facility] HCT 46.5(H) 34.9 - 44.5 % 03/29/2024 3:30 PM [facility] MCV 87.2 80.0 - 100.0 fL 03/29/2024 3:30 PM [facility] MCH 29.1 27.6 - 33.3 pg 03/29/2024 3:30 PM [facility] MCHC 33.3 31.5 - 35.2 g/dL 03/29/2024 3:30 PM [facility] RDW 12.5 11.9 - 15.5 % 03/29/2024 3:30 PM [facility] Platelets 316 150 - 450 x10(9)/L 03/29/2024 3:30 PM [facility] Automated NRBC 0 <=0 /100 WBC 03/29/2024 3:30 PM [facility] Neutrophil Absolute 5.6 1.7 - 7.0 10(9)/L 03/29/2024 3:30 PM [facility] Lymphocyte Absolute 1.6 1.0 - 4.8 10(9)/L 03/29/2024 3:30 PM [facility] Monocyte Absolute 0.5 0.2 - 0.9 10(9)/L 03/29/2024 3:30 PM [facility] Eosinophil Absolute 0.1 0.0 - 0.5 10(9)/L 03/29/2024 3:30 PM [facility] Basophil Absolute 0.1 0.0 - 0.3 10(9)/L 03/29/2024 3:30 PM [facility] Immature Granulocyte % 0.4 0.0 - 0.5 % 03/29/2024 3:30 PM [facility] Blood Venipuncture / Unknown 03/29/2024 3:24 PM INDUSTRIAL GARAGE SERVICER 03/29/2024 3:24 PM INDUSTRIAL GARAGE SERVICER Dakota Gould MD LAB_1 Performing Organization Address [facility]/ZIP Co de Phone Number [address] * Magnesium (03/29/2024 3:24 PM INDUSTRIAL GARAGE SERVICER) [facility] Magnesium 2.1 1.6 - 2.6 mg/dL 03/29/2024 5:48 PM [facility] Blood Venipuncture / Unknown 03/29/2024 3:24 PM INDUSTRIAL GARAGE SERVICER 03/29/2024 3:24 PM INDUSTRIAL GARAGE SERVICER Neida Aragon MD LAB_1 Performing Organization Address [facility]/ZIP Co de Phone Number [facility] [address] * (ABNORMAL) Basic Metabolic Panel (03/29/2024 3:24 PM INDUSTRIAL GARAGE SERVICER) Pathologist [facility] Sodium 142 136 - 145 mmol/L 03/29/2024 5:48 PM [facility] Potassium 4.1 3.5 - 5.1 mmol/L 03/29/2024 5:48 PM [facility] Chloride 105 98 - 109 mmol/L 03/29/2024 5:48 PM [facility] CO2 28 20 - 29 mmol/L 03/29/2024 5:48 PM [facility] Anion Gap 9 6 - 16 mmol/L 03/29/2024 5:48 PM [facility] Calcium 10.9(H) 8.4 - 10.4 mg/dL 03/29/2024 5:48 PM [facility] BUN 16 7 - 26 mg/dL 03/29/2024 5:48 PM [facility] Creatinine 1.05(H) 0.55 - 1.02 mg/dL 03/29/2024 5:48 PM [facility] Glucose 135(H) 70 - 100 mg/dL 03/29/2024 5:48 PM [facility] Comment:The given reference range is for the fasting state. Non-fasting reference range for glucose is 70 - 180 mg/dL. GFR, Estimated >60 >60 mL/min/1.7 3m2 03/29/2024 5:48 PM [facility] Hours Fasting 0.1 8 - 12 Hours 03/29/2024 5:48 PM [facility] Comment:Lab unable to obtain patient's fasting status at time of specimen collection. Blood Venipuncture / Unknown 03/29/2024 3:24 PM INDUSTRIAL GARAGE SERVICER 03/29/2024 3:24 PM INDUSTRIAL GARAGE SERVICER Neida Aragon MD LAB_1 Performing Organization Address City/[facility]/ZIP Co de Phone Number [facility] [address] [place] [address], [facility] * TSH (03/29/2024 3:24 PM INDUSTRIAL GARAGE SERVICER) TSH, Sensitive 1.21 0.30 - 4.50 uIU/mL 03/29/2024 8:19 PM INDUSTRIAL GARAGE SERVICER [facility] Blood Venipuncture / Unknown 03/29/2024 3:24 PM INDUSTRIAL GARAGE SERVICER 03/29/2024 3:24 PM INDUSTRIAL GARAGE SERVICER Neida Aragon MD LAB_1 [facility] [address] [place], [place] [id number] [place] [address] * C-Reactive Protein (03/29/2024 3:24 PM INDUSTRIAL GARAGE SERVICER) C-Reactive Protein 0.2 0.0 - 0.5 mg/dL 03/29/2024 5:48 PM INDUSTRIAL GARAGE SERVICER [facility] Blood Venipuncture / Unknown 03/29/2024 3:24 PM INDUSTRIAL GARAGE SERVICER 03/29/2024 3:24 PM INDUSTRIAL GARAGE SERVICER Dakota Gould MD LAB_1 Performing Organization Address City/[facility] Co de Phone Number [facility] [address] [place] [address] * AST (03/29/2024 3:24 PM INDUSTRIAL GARAGE SERVICER) Pathologist [facility] AST (SGOT) 36 10 - 40 U/L 03/29/2024 5:48 PM INDUSTRIAL GARAGE SERVICER [facility] Blood Venipuncture / Unknown 03/29/2024 3:24 PM INDUSTRIAL GARAGE SERVICER 03/29/2024 3:24 PM INDUSTRIAL GARAGE SERVICER Dakota Gould MD LAB_1 Performing Organization Address [facility] de Phone Number [facility] [address] [place] [address] documented in this encounter Visit Diagnoses Diagnosis Systemic lupus erythematosus, unspecified SLE type, unspecified organ involvement status (HRC) Acquired hypothyroidism (HRC) Unspecified hypothyroidism Hypovolemia Hypertension, unspecified type (HRC) documented in this encounter Care Teams Yard Driver Relationship Specialty [place] [address] [place] [address] PCP - General 12/11/11 documented as of this encounter
--- OUTSIDE RECORDS SUMMARY | 2024-05-10 17:02 | XMS_ITS | Clinical Summary ---
Author Organization [facility] Address [address] [place] [address] Care Team Providers Care Cobol Developer Name Role Phone [facility], [facility] [place] [facility] ov[facility] Allergies Active Allergy [...] on file Legal Sex Female 4:51 AM SUPERVISOR COAL HANDLING Gender Identity Not on file Sexual Orientation [...] Plan of Treatment Not on file [facility] Address: [address] [place] [address] [facility] Advance Directives For more information, please contact: [phone] * Full Code (Latest Code Status on File) Date Activated Date Inactivated Comments 07/01/2013 11:09 AM 11/17/2018 9:51 AM * Full Code Date Activated Date Inactivated Comments 06/24/2013 11:55 PM 07/01/2013 11:09 AM * Full Code Date Activated Date Inactivated Comments 03/07/2011 4:52 PM 03/08/2011 7:05 PM Care Teams Cobol Developer Relationship Specialty Start Date End Date [facility], [facility] [address] [address] [facility] - General 02/14/11
--- OUTSIDE RECORDS SUMMARY | 2024-05-10 17:02 | XMS_ITS | Continuity of Care Document ---
Author Organization [facility] Address [address] [place] [phone] Phone Care Team Providers Care Arborer Name Role Phone Will MD CASTANO, Aurelio Unavailable Unavailabl e Advance Directives Directive Yes / No Effective Date File Name No Information Encounters Encounter Description Practice Location Reason(s) For Visit Diagnoses Date Provider Providers Copied on Encounter [facility], [address] [place] [address], [id number], [place] tel:[phone] [facility] No Information Will Aurelio. [address] [facility] [place], [place], [id number], [place]. tel:[phone] Family History Family Member Type Diagnosis Age At Onset No Information Payers Payer name Insurance type Covered green party ID Authoriza tion(s) No Information Social History [...]
--- OUTSIDE RECORDS SUMMARY | 2024-05-10 17:02 | XMS_ITS | Encounter Summary ---
Author Organization [facility] Address [address] [place] [address] Care Team Providers Care Glaze Mixer Name Role Phone Neida Aragon MD Primary Care Provider Encounter Details Date Type Department Care Team (Late st Contact Info) Description 04/21/2024 E-Visit Specialty Center 3931 Pulmonary Medicine [facility] [place] [address] Mycemperatrizt, [place] [address] Social History Tobacco Use Types Packs/Day Years [...] st Contact Info) Description 05/17/2024 2:30 PM GEL COAT SPRAYER Appointment [facility] Medicine [address] [place], [place] [address] Neida Aragon MD [address] [place] [address] [place] [id number] 05/25/2024 10:30 AM GEL COAT SPRAYER Appointment Specialty Center [address] Sleep Lab Beds [address] [place] [address] 05/26/2024 1:00 PM GEL COAT SPRAYER Appointment Audiology at [facility] [address] [address] [address] [place] [address] Robert Leiva AU.D. [address] [place] [address] 06/08/2024 8:15 AM CDT Appointment Pulmonary at [facility] [address] [address] [address] [place] [address] Neurock, Isadora Esteves APRN, RECEPTIONIST TELEPHONE OPERATOR 39[address] [place] [address] 11/22/2024 2:45 PM CDT Appointment Rheumatology at [facility] [address] [address] [address] [place] [address] Dakota Gould MD [address] [place] [address] documented as of this encounter Visit Diagnoses Not on filedocumented in this encounter Care Teams Glaze Mixer Relationship Specialty Start Date End Date Neida Aragon MD [address] [place] [address] [place] [address] PCP - General 12/11/11 documented as of this encounter
--- OUTSIDE RECORDS SUMMARY | 2024-05-10 17:02 | XMS_ITS | Clinical Summary ---
Author Organization [facility] Address [place], [place] [address] Care Team Providers Care Mechanical Detailer Name Role Phone Bri Silvestre MD Primary [...] with Dr. Jose Burgess at [facility] Carpal tunnel syndrome 08/29/2008 Overview (08/29/2008): [...] on file Legal Sex Female 5:59 AM TRIPLE VALVE MECHANIC Gender Identity Not on file Sexual Orientation Not on file Obstetrics History Last Filed Vital Signs Vital Sign Reading Time Taken Comments Blood Pressure 128/58 04/07/2013 9:27 PM TRIPLE VALVE MECHANIC Pulse 91 04/07/2013 9:27 PM TRIPLE VALVE MECHANIC Temperature 36.9 C (98.4 F) 04/07/2013 6:46 PM TRIPLE VALVE MECHANIC Respiratory Rate 18 04/07/2013 9:27 PM TRIPLE VALVE MECHANIC Oxygen Saturation 99% 04/07/2013 9:27 PM TRIPLE VALVE MECHANIC Inhaled Oxygen Concentration - - Weight - [...] [facility] HDL CHOLESTEROL 55 >40 mg/dL [facility] CHOL/HDL RATIO 3.[address] <[address]51 [facility] LDL CHOLESTEROL 110 <131 mg/dL [facility] PATIENT STATUS Fasting [facility] 08/29/2008 8:55 AM CDT 08/29/2008 8:48 AM CDT us Bri Silvestre MD CHEMISTRY Final Result [facility] INTERNAL ZIP [address] [address] from Last 3 Months or Most Recently Relevant to Health Maintenance Care Teams Mechanical Detailer Relationship Specialty Start Date End Date Bri Silvestre MD PCP - General 12/31/07
--- OUTSIDE RECORDS SUMMARY | 2024-05-10 17:02 | XMS_ITS | Encounter Summary ---
Author Organization [facility] Address [address] [place] [address] Care Team Providers Care Shafting Worker Name Role Phone Neida Aragon MD Primary Care Provider Reason for Visit * Reason Comments BLOOD PRESSURE, HIGH Encounter Details Date Type Department Care Team (Late st Contact Info) Description 11/17/2018 Nurse Triage [facility] [address] [place], [place] [phone] Neida Aragon MD [address] [place] [address] [phone] BLOOD PRESSURE, HIGH Social History Tobacco Use [...] st Contact Info) Description 05/17/2024 2:[address] APPRAISER Appointment [facility] [address] [place] [address] [place] [address] [place] [address] 05/25/2024 10:[address] APPRAISER Appointment [facility] 3931 Sleep Lab Beds 3931 [place] [address] 05/26/2024 1:[address] APPRAISER Appointment Audiology at [facility] [address] [address] [address] [place] [phone] Robert Leiva AU.D. [address] [place] [address] 06/08/2024 8:15 AM CDT Appointment Pulmonary at [facility] [address] [address] [address] [place] [address] Neurock, Isadora Esteves, PROGRAM PROPOSALS COORDINATOR, ASSEMBLER TESTER 3931 [place], [place] 9[address]306 11/22/2024 2:45 PM CDT Appointment Rheumatology at [address] [address] Dakota Golud MD 3800 [place], [place] [address] documented as of this encounter Visit Diagnoses Not on filedocumented in this encounter Additional Health Concerns Infection Onset Date Last Indicated Resolved Time R/O COVID19 02/19/2022 02/19/2022 02/20/2022 3:[address] APPRAISER R/O COVID19 02/17/2023 02/17/2023 02/17/2023 9:[address] APPRAISER documented as of this encounter Care Teams Shafting Worker Relationship Specialty Start Date End Date Neida Aragon MD [address] [place] [address] ELIZABETH GREGG [address] PCP - General 12/11/11 documented as of this encounter
--- OUTSIDE RECORDS SUMMARY | 2024-05-10 17:02 | XMS_ITS | Referral Summary ---
Author Organization [facility] Address [address] [place] [address] Phone Care Team Providers Care Hospital Chaplain Name Role Phone Neida Aragon MD Primary Care Provider [phone] Source Comments [employer] is fully rolled out on [employer]. Last update 09/02/08.[employer] Allergies Active Allergy Reactions Criticality Noted Date [...] Other Other (see comments) 02/03/2015 Colophony,Balsam of [place],2-Oh ethyl methacrylate,MMA,Co mpositae mix,EGDMA,2-Oh ethyl acrylate,2-Oh propyl [...] CDT): A: History of REM diagnosed by [place] 10 years ago. Today, c/o intermittent very [...] Body Mass Index 34.54 01/30/2015 10:09 AM SUPERVISOR DRAPERY HANGING Plan of Treatment Not on file Insurance ELIZABETH SANDOVAL [id number] [facility] MEDICARE Care Teams Hospital Chaplain Relationship Specialty [place] [address] [address] ELIZABETH Calderon [address] PCP - General Outside Provider 08/25/14
--- OUTSIDE RECORDS SUMMARY | 2024-05-10 17:03 | XMS_ITS | Clinical Summary ---
Author Organization [facility] Address [address], [place] [address] Care Team Providers Care Middle School Band Teacher Name Role Phone Neida Aragon MD Primary Care Provider Source Comments You are receiving this document as you are listed as the primary care provider,follow-up provider, or the patient has been referred to you for consultation.This is in compliance with the Medicare andCity Hospitalcaid EHR Incentive Program,which states Providers who transition their patient to another setting of careor provider of care or refers their patient to another provider of care shouldprovide summary care record for each transition of care or referral. Digilab Allergies Active Allergy Reactions Criticality Noted Date [...] needed for Pain. Active Prenat Vit-Fe Gly Yty-ML-Hqbgt (ENBRACE HR) CAPS Take 1 Capsule by [...] 10/19/2020 Posttraumatic stress disorder 09/18/2020 Fibromyalgia 06/23/2019 prison current use of therapeutic drug 2019 Systemic [...] findings of aneurysm [facility] CTA head at [facility] 03/2023. Acquired hypothyroidism 01/10/2009 Obesity 01/10/2009 [...] (11/20/2016): Normal RUE EMG - note from [facility] 05/04/2012 reviewed. EMG results argue against myasthenia gravis and Lamber-Eaton myasthenic syndrome. 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 08/29/2008 03/25/2023 IFG (impaired fasting glucose) 09/18/2020 Encounters Date Type Department Care Team Description 05/07/2024 Nurse Triage [place] [phone] Neida Aragon MD FORGETFULNESS 04/21/2024 E-Visit Specialty Center 3931 Pulmonary Medicine 3931 [place] [address] Mychart, Generic Provider 04/20/2024 Refill Rheumatology at [facility] [address] [place] [address] Dakota Gould MD Refill 04/16/2024 1:30 PM DISABILITY HEARING OFFICER Telemedicine [facility] [address] [place] [address] Neida Aragon MD Primary hypertension (HRC) (Primary Dx); Orthostatic hypotension; Tachycardia 04/16/2024 Notes/Orders [facility] [address] [place] [address] Neida Aragon MD NATALY (obstructive sleep apnea) (Primary Dx) 04/15/2024 Nurse Triage [facility] [address] [place] [address] Neida Aragon MD Follow Up Sleep Apnea 04/07/2024 1:00 PM DISABILITY HEARING OFFICER Ancillary Procedure [facility] at [facility] [place] [address] [address] [address] [place] [address] Neida Aragon MD Encounter for screening mammogram for malignant neoplasm of breast 03/29/2024 3:20 PM DISABILITY HEARING OFFICER Lab Visit [facility] [address] [place] [address] Systemic lupus erythematosus, unspecified SLE type, unspecified organ involvement status (HRC); Acquired hypothyroidism (HRC); Hypovolemia; Hypertension, unspecified type (HRC) 03/29/2024 2:30 PM DISABILITY HEARING OFFICER Office Visit [facility] [address] [place] [address] Neida Aragon MD Encounter for Medicare annual [...] 70's Coronary Artery Disease Maternal Grandmother Rosalba DC DVT/PE Maternal Grandmother Rosalba Diabetes Maternal Grandmother [...] Comments Blood Pressure 119/81 03/29/2024 2:20 PM DISABILITY HEARING OFFICER Pulse 109 03/29/2024 2:20 PM DISABILITY HEARING OFFICER Temperature 37.1 C (98.7 F) 02/17/2023 9:38 AM DISABILITY HEARING OFFICER Respiratory Rate 14 07/17/2023 12:55 PM CDT Oxygen Saturation 96% 08/06/2023 1:32 PM CDT Inhaled Oxygen Concentration - - Weight 94.5 kg (208 lb 6.4 oz) 03/29/2024 2:20 P M DISABILITY HEARING OFFICER Height 165.1 cm (5' 5) 03/29/2024 2:20 PM DISABILITY HEARING OFFICER Body Mass Index 34.68 03/29/2024 2:20 PM DISABILITY HEARING OFFICER Plan of Treatment Upcoming Encounters Date Type Department Care Team (Late st Contact Info) Description 05/17/2024 2:30 PM DISABILITY HEARING OFFICER Appointment [facility] [address] [place] [address] [place] [address] [place] [address] 05/25/2024 10:30 AM DISABILITY HEARING OFFICER Appointment Specialty [place] [address] Sleep Lab Beds [address] [place] [address] 05/26/2024 1:00 PM DISABILITY HEARING OFFICER Appointment Audiology at [facility] [address] [facility] [address] [place] [phone] Robert Levia AU.D. [address] [place] [address] 06/08/2024 8:15 AM CDT Appointment Pulmonary at [facility] [address] [place] [address] [place] [address] Neurock, Isadora Esteves, COOLING TOWER OPERATOR, TRAINING ASSOCIATE 3931 [place] [address] 11/22/2024 2:45 PM CDT Appointment Rheumatology at [facility] [address] [address] Dakota Gould MD [address] [place] [address]146 Health Maintenance Due Date Last Done Comments [...] PETEY W CAD Routine 04/07/2024 1:04 PM DISABILITY HEARING OFFICER Encounter for screening mammogram for malignant neoplasm of breast COMPLETE BLOOD COUNT-W/DIFF Routine 03/29/2024 3:24 PM DISABILITY HEARING OFFICER Systemic lupus erythematosus, unspecified SLE type, unspecified organ involvement status (HRC) MAGNESIUM Routine 03/29/2024 3:24 PM DISABILITY HEARING OFFICER Hypovolemia Hypertension, unspecified type (HRC) BASIC METABOLIC PANEL Routine 03/29/2024 3:24 PM DISABILITY HEARING OFFICER Hypovolemia Hypertension, unspecified type (HRC) TSH, SENSITIVE Routine 03/29/2024 3:24 PM DISABILITY HEARING OFFICER Acquired hypothyroidism (HRC) C-REACTIVE PROTEIN Routine 03/29/2024 3: 24 PM DISABILITY HEARING OFFICER Systemic lupus erythematosus, unspecified SLE type, unspecified organ involvement status (HRC) CBC AND DIFFERENTIAL PANEL Routine 03/29/2024 3:24 PM DISABILITY HEARING OFFICER Systemic lupus erythematosus, unspecified SLE type, unspecified organ involvement status (HRC) AST Routine 03/29/2024 3:24 PM DISABILITY HEARING OFFICER Systemic lupus erythematosus, unspecified SLE type, unspecified organ involvement status (HRC) DXA BONE DENSITY SPINE/HIP/FOREARM Routine 10/22/2023 3:12 PM CDT Hyperparathyroidism (HRC) HGB A1C Routine 06/12/2023 12:41 PM CDT Nocturia LIPID PANEL & DIRECT LDL (IF NEEDED) Routine 03/26/2023 11:16 AM DISABILITY HEARING OFFICER Screening cholesterol level HEPATITIS C ANTIBODY, WITH [...] 3D Petey W CAD (04/07/2024 1:04 PM DISABILITY HEARING OFFICER) Anatomical Region Laterality Modality Breast Bilateral Mammography Impressions 04/07/2024 1:18 PM DISABILITY HEARING OFFICER : ACR BI-RADS Category 1: Negative RECOMMENDATION: Follow Up Imaging in 12 months - Bilateral The results and recommendations of this examination will be communicated to the patient. Narrative 04/07/2024 1:18 PM DISABILITY HEARING OFFICER MM MAMMOGRAM SCREENING BILAT W 3D PETEY W CAD performed on 04/07/24 [facility] Accredited Facility: [place] [address] Compared to: 03/26/2023 MM Mammogram Screening Bilat [...] (ABNORMAL) Complete Blood Count-W/Diff (03/29/2024 3:24 PM DISABILITY HEARING OFFICER) WBC 7.8 3.5 - 10.5 x10(9)/L 03/29/2024 3:30 PM [facility] RBC 5.33(H) 3.90 - 5.03 x10(12)/L 03/29/2024 3:30 PM [facility] Hemoglobin 15.5 12.0 - 15.5 g/dL 03/29/2024 3:30 PM [facility] HCT 46.5(H) 34.9 - 44.5 % 03/29/2024 3:30 PM [facility] MCV 87.2 80.0 - 100.0 fL 03/29/2024 3:30 PM [facility] MCH 29.1 27.6 - 33.3 pg 03/29/2024 3:30 PM [facility] MCHC 33.3 31.5 - 35.2 g/dL 03/29/2024 3:30 PM [facility] RDW 12.5 11.9 - 15.5 % 03/29/2024 3:30 PM [facility] Platelets 316 150 - 450 x10(9)/L 03/29/2024 3:30 PM [facility] Automated NRBC 0 <=0 /100 WBC 03/29/2024 3:30 PM [facility] Neutrophil Absolute 5.6 1.7 - 7.0 10(9)/L 03/29/2024 3:30 PM [facility] Lymphocyte Absolute 1.6 1.0 - 4.8 10(9)/L 03/29/2024 3:30 PM [facility] Monocyte Absolute 0.5 0.2 - 0.9 10(9)/L 03/29/2024 3:30 PM [facility] Eosinophil Absolute 0.1 0.0 - 0.5 10(9)/L 03/29/2024 3:30 PM [facility] Basophil Absolute 0.1 0.0 - 0.3 10(9)/L 03/29/2024 3:30 PM [facility] Immature Granulocyte % 0.4 0.0 - 0.5 % 03/29/2024 3:30 PM [facility] Blood Venipuncture / Unknown 03/29/2024 3:24 PM DISABILITY HEARING OFFICER 03/29/2024 3:24 PM DISABILITY HEARING OFFICER Dakota Gould MD LAB_1 Performing Organization Address [facility] Co de Phone Number [facility] [address] [place] [address] * TSH (03/29/2024 3:24 PM DISABILITY HEARING OFFICER) [facility] TSH, Sensitive 1.21 0.30 - 4.50 uIU/mL 03/29/2024 8:19 PM DISABILITY HEARING OFFICER [facility] Blood Venipuncture / Unknown 03/29/2024 3:24 PM DISABILITY HEARING OFFICER 03/29/2024 3:24 PM DISABILITY HEARING OFFICER Neida Aragon MD LAB_1 [facility] [address] [place] [address], [facility] * (ABNORMAL) Basic Metabolic Panel (03/29/2024 3:24 PM DISABILITY HEARING OFFICER) [facility] Sodium 142 136 - 145 mmol/L 03/29/2024 5:48 PM [facility] Potassium 4.1 3.5 - 5.1 mmol/L 03/29/2024 5:48 PM [facility] Chloride 105 98 - 109 mmol/L 03/29/2024 5:48 PM [facility] CO2 28 20 - 29 mmol/L 03/29/2024 5:48 PM [facility] Anion Gap 9 6 - 16 mmol/L 03/29/2024 5:48 PM [facility] Calcium 10.9(H) 8.4 - 10.4 mg/dL 03/29/2024 5:48 PM [facility] BUN 16 7 - 26 mg/dL 03/29/2024 5:48 PM [facility] Creatinine 1.05(H) 0.55 - 1.02 mg/dL 03/29/2024 5:48 PM [facility] Glucose 135(H) 70 - 100 mg/dL 03/29/2024 5:48 PM [facility] Comment:The given reference range is for the fasting state. Non-fasting reference range for glucose is 70 - 180 mg/dL. GFR, Estimated >60 >60 mL/min/1.7 3m2 03/29/2024 5:48 PM [facility] Hours Fasting 0.1 8 - 12 Hours 03/29/2024 5:48 PM [facility] Comment:Lab unable to obtain patient's fasting status at time of specimen collection. Blood Venipuncture / Unknown 03/29/2024 3:24 PM DISABILITY HEARING OFFICER 03/29/2024 3:24 PM DISABILITY HEARING OFFICER Neida Aragon MD LAB_1 [facility] [address] [place] [address], [place] * Magnesium (03/29/2024 3:24 PM DISABILITY HEARING OFFICER) [facility] Magnesium 2.1 1.6 - 2.6 mg/dL 03/29/2024 5:48 PM DISABILITY HEARING OFFICER [facility] Blood Venipuncture / Unknown 03/29/2024 3:24 PM DISABILITY HEARING OFFICER 03/29/2024 3:24 PM DISABILITY HEARING OFFICER Neida Aragon MD LAB_1 Performing Organization Address [facility] Co de Phone Number [facility] [phone] [place] [address] * C-Reactive Protein (03/29/2024 3:24 PM DISABILITY HEARING OFFICER) [facility] C-Reactive Protein 0.2 0.0 - 0.5 mg/dL 03/29/2024 5:48 PM DISABILITY HEARING OFFICER [facility] Blood Venipuncture / Unknown 03/29/2024 3:24 PM DISABILITY HEARING OFFICER 03/29/2024 3:24 PM DISABILITY HEARING OFFICER Dakota Gould MD LAB_1 Performing Organization Address [facility] Co de Phone Number [facility] [address] [place] [address] * AST (03/29/2024 3:24 PM DISABILITY HEARING OFFICER) [facility] AST (SGOT) 36 10 - 40 U/L 03/29/2024 5:48 PM DISABILITY HEARING OFFICER [facility] Blood Venipuncture / Unknown 03/29/2024 3:24 PM DISABILITY HEARING OFFICER 03/29/2024 3:24 PM DISABILITY HEARING OFFICER Dakota Gould MD LAB_1 Performing Organization Address [facility] de Phone Number [facility] [id number] [place] [address] * DXA Bone Density Spine/Hip/Forearm (10/22/2023 3:12 PM CDT) [facility] DXA Lumbar Spine Bone Mineral Density [...] not included. Patient Name: Annie Goodman Densitometer: [employer] W Appt Dept/Resource: Phillip Bone Density FOX [...] trabecular bone, and is derived from the noobm-hq-engqp changes of bone density embedded in the [...] * Hgb A1C (06/12/2023 12:41 PM CDT) [facility] Hemoglobin A1C (Rapid) 5.3 <=5.6 % 06/12/2023 2:53 PM T [facility] Estimated Average Glucose (Calc) 105 < 117 mg/dL 06/12/2023 2:53 PM [facility] Comment:Estimated average gl ucose (eAG) converts A1c into glucose units (mg/dL) and estimates average glucose over the past approximately 3 months. The eAG reference interval (<117 mg/dL) corresponds to an A1c of <5.7%. Blood Venipuncture / Unknown 06/12/2023 12:41 PM CDT 06/12/2023 12:41 PM CDT Narrative [facility] - 06/12/2023 2:53 PM CDT The test method used for this Hemoglobin A1c result can experience interference from elevated hemoglobin and other hemoglobin variants. In patients with results that do not correlate clinically, contact the lab for further direction. Neida Aragon MD LAB_1 [facility] [address] [place] [address] * Lipid Panel and Direct LDL(If Needed) (03/26/2023 11:16 AM DISABILITY HEARING OFFICER) [facility] Cholesterol 176 0 - 199 mg/dL 03/26/2023 12:15 PM [facility] Triglyceride 70 <=149 mg/dL 03/26/2023 12:15 PM [facility] HDL Cholesterol 83 >=40 mg/dL 12:15 PM [facility] LDL, Calculated 79 <130 mg/dL 12:15 PM [facility] Non HDL Chol, Calculated 93 <=159 mg/dL 03/26/2023 12:15 PM [facility] Cholesterol/HDL Ratio 2.1 <=5.0 03/26/2023 12:15 PM [facility] Hours Fasting 0.1 8 - 12 Hours 03/26/2023 12:15 PM [facility] Comment:Lab unable to obtain patient's fasting status at time of specimen collection. Blood Venipuncture / Unknown 03/26/2023 11:16 AM DISABILITY HEARING OFFICER 03/26/2023 11:16 AM DISABILITY HEARING OFFICER Neida Aragon MD LAB_1 Performing Organization Address City/[facility]/ZIP Co de Phone Number [facility] [address] [place] [address] [phone] * HCAB - Hepatitis C Virus Wendy with Reflex In-House (06/14/2019 2:37 PM CDT) [facility] Hepatitis C Antibody Negative (Non Reactive) Negative (Non Reactive) 06/14/2019 7:06 PM CDT [facility] Comment:Antibodies to HCV no t detected. Does not exclude the possiblity of exposure to HCV. Blood Venipuncture / Unknown 06/14/2019 2:37 PM CDT 06/14/2019 2:38 PM CDT Dakota Gould MD LAB_1 [facility] [address] * HIV-1 P24 AND HIV-1/HIV-2 ANTIBODIES (06/12/2015 9:40 AM CDT) [facility] HIV-1 p24 Ag and HIV-1/HIV-2 Ab Nonreactive Non-React mu HP CONVERSION 06/12/2015 9:40 AM CDT 06/12/2015 12:16 PM CDT Narrative HP CONVERSION - 06/12/2015 1:21 PM CDT Performed at [address] [address] CLIA number [id number] Jin Jeffries MD LAB_1 HP CONVERSION from Last 3 Months or Most Recently Relevant to Health Maintenance Care Teams Middle School Band Teacher Relationship Specialty [place] [address] [place]ABETH GREGG [address] PCP - General 12/11/11
--- OUTSIDE RECORDS SUMMARY | 2024-05-10 17:03 | XMS_ITS | Encounter Summary ---
[facility] Organization [facility] Address [address] [place] [address] Care Team Providers Care Incinerator Attendant Name Role Phone Neida Aragon MD Primary Care Provider Reason for Visit * Reason Onset Date Comments Video Visit 04/15/2024 Encounter Details Date Type Department Care Team (Late st Contact Info) Description 04/16/2024 1:30 PM FILM LIBRARIAN Telemedicine [facility] [address] [place], [place] [phone] [place] [id number] [place] [address] [phone] Primary hypertension (HRC) (Primary Dx); Orthostatic hypotension; [...] did not have improvement in symptoms. Objective: [facility] 02/18/2011 General: WNWD in NAD. Assessment/Plan: Primary [...] Basic Metabolic Panel; Future Neida Aragon MD LIBRARIAN documented in this encounter Plan of Treatment Upcoming Encounters Date Type Department Care Team (Late st Contact Info) Description 05/17/2024 2:30 PM FILM LIBRARIAN Appointment [facility] [address] [place] [address] [place] [address] [place] [address] 05/25/2024 10:30 AM FILM LIBRARIAN Appointment [facility] [address] Sleep Lab Beds 39[address] [place] [address] 05/26/2024 1:00 PM FILM LIBRARIAN Appointment Audiology at [facility] [address] [facility] [address] [place] [phone] Robert Leiva AU.D. [address] [place] [address] 06/08/2024 8:15 AM CDT Appointment Pulmonary at [address] [address] Neurock, Isadora L, RECOVERY ADVOCATE, M48 M60 ARMOR CREWMAN [address] [place] [address] 11/22/2024 2:45 PM CDT Appointment Rheumatology at [address] [address] Dakota Gould MD [address] [place] [address] Scheduled Orders Name Type Priority Associated Diagnoses Orde r Schedule Basic Metabolic Panel Lab Routine Primary hypertension (HRC) Expected: 04/16/2024, Expires: 07/15/2024 documented as of this encounter Visit Diagnoses Diagnosis Primary hypertension (HRC)- Primary Unspecified essential hypertension Orthostatic hypotension Tachycardia Tachycardia, unspecified documented in this encounter Care Teams Incinerator Attendant Relationship Specialty Start Date End Date Neida Aragon MD [address] [place], [place] [address]VIEW [place] GRE[place] [address] PCP - General 12/11/11 documented as of this encounter
--- OUTSIDE RECORDS SUMMARY | 2024-05-10 17:03 | XMS_ITS | Encounter Summary ---
Author Organization [facility] Address [address] [place] [address] Care Team Providers Care Rigging Slinger Name Role Phone Neida Aragon MD Primary Care Provider Reason for Visit * Reason Comments FORGETFULNESS Encounter Details Date Type Department Care Team (Late st Contact Info) Description 05/07/2024 Nurse Triage [facility] Medicine [address] [place], [place] [phone] Neida Aragon MD [address] [place] [address] [phone] FORGETFULNESS Social History Tobacco Use Types Packs/Day [...] the triager Protocols used: Dementia Symptoms and [id number]-LA, Confusion - Nltdnlgb-[id number]-AF DING GUARD DEPUTY SHERIFF documented in this encounter Plan of Treatment Upcoming Encounters Date Type Department Care Team (Late st Contact Info) Description 05/17/2024 2:30 PM BUILDING GUARD DEPUTY SHERIFF Appointment [facility] Medicine [address] [place], [place] 214[address] Neida Aragon MD [address] [place] [address] ELIZABETH GREGG [phone] 05/25/2024 10:30 AM BUILDING GUARD DEPUTY SHERIFF Appointment Specialty Center 39[address] Sleep Lab Beds [address] [place] [address] 05/26/2024 1:00 PM BUILDING GUARD DEPUTY SHERIFF Appointment Audiology at [facility] [address] [address] [address] [place] [address] Robert Leiva AU.D. [address] [place] [address] 06/08/2024 8:15 AM CDT Appointment Pulmonary at [facility] [address] [address] [address] [place] [address] Neurock, Isadora Esteves APRN, GM MOBILE 39[address] [place] [address] 11/22/2024 2:45 PM CDT Appointment Rheumatology at [facility] [address] [address] [address] [place] [address] Dakota Gould MD [address] [place] [address] documented as of this encounter Visit Diagnoses Not on filedocumented in this encounter Care Teams Rigging Slinger Relationship Specialty Start Date End Date Neida Aragon MD [address] [place] [address] [place] [address] PCP - General 12/11/11 documented as of this encounter
--- OUTSIDE RECORDS SUMMARY | 2024-05-10 17:03 | XMS_ITS | Encounter Summary ---
Author Organization [facility] Address [address] [place] [address] Care Team Providers Care Traffic Expert Name Role Phone Neida Aragon MD Primary Care Provider Reason for Visit * Procedure/Equipment (Routine) - Incomplete Specialty Diagnoses / Procedures Referred By Ross mckenna Referred To Contact Diagnoses Encounter for screening mammogram for malignant neoplasm of breast Procedures MM Mammogram Screening Bilat [place] 3[place] [address] [place] [address] Referral ID Status Reason Start Date Expiration Date V isits Requested Visits Authorized [id number] Incomplete 03/29/2024 06/28/2025 1 1 Encounter Details Date Type Department Care Team (Latest Contact Info) Description 04/07/2024 1:00 PM DIRECTOR OF TRANSPORTATION Ancillary Procedure [facility] at [facility] [place] [address] [address] [address] [facility], [place] [phone] [place] [address] [place] [address] Encounter for screening mammogram [...] st Contact Info) Description 05/17/2024 2:30 PM DIRECTOR OF TRANSPORTATION Appointment [facility] [address] [place] [address] [place] [address] [place] [address] 05/25/2024 10:30 AM DIRECTOR OF TRANSPORTATION Appointment [place] [address] [facility] [address] [place] [address] 05/26/2024 1:00 PM DIRECTOR OF TRANSPORTATION Appointment Audiology at [facility] [address] [facility] [address] [place] [phone] Robert Leiva AU.D. [address] [place] [address] 06/08/2024 8:15 AM CDT Appointment Pulmonary at [facility] [address] [place] [address] Neurock, Isadora Esteves, RIB KNITTER, DYER HELPER 3931 [place] [address] 11/22/2024 2:45 PM CDT Appointment Rheumatology at [facility] [address] [place] [address] Dakota Gould MD [address] [place] [address] documented as of this encounter Procedures Procedure Name Priority Date/Time Associated Diagnosis Comments MM MAMMOGRAM SCREENING BILAT W 3D BARB W CAD Routine 04/07/2024 1:04 PM DIRECTOR OF TRANSPORTATION Encounter for screening mammogram for malignant neoplasm of breast documented in this encounter Results * MM Mammogram Screening Bilat W 3D Barb W CAD (04/07/2024 1:04 PM DIRECTOR OF TRANSPORTATION) Anatomical Region Laterality Modality Breast Bilateral Mammography Impressions 04/07/2024 1:18 PM DIRECTOR OF TRANSPORTATION : ACR BI-RADS Category 1: Negative RECOMMENDATION: Follow Up Imaging in 12 months - Bilateral The results and recommendations of this examination will be communicated to the patient. Narrative 04/07/2024 1:18 PM DIRECTOR OF TRANSPORTATION MM MAMMOGRAM SCREENING BILAT W 3D BARB W CAD performed on 04/07/24 [facility] Accredited Facility: [place] [address] Compared to: 03/26/2023 MM Mammogram Screening Bilat [...] mammogram documented in this encounter Care Teams Traffic Expert Relationship Specialty [place] [address] [place] [address] PCP - General 12/11/11 documented as of this encounter
--- OUTSIDE RECORDS SUMMARY | 2024-05-10 17:03 | XMS_ITS | Encounter Summary ---
Author Organization [facility] Address [address] [place] [address] Care Team Providers Care Life Consultant Name Role Phone Neida Aragon MD Primary Care Provider Reason for Visit * Reason Onset Date Comments Refill 04/20/2024 Encounter Details Date Type Department Care Team (Late st Contact Info) Description 04/20/2024 Refill Rheumatology at [address] [place], [place] [phone] Dakota Gould MD [address] [place] [phone] Refill Social History Tobacco Use Types Packs/Day [...] Provider: DAKOTA GOULD Ordering User: JHON MCALLISTER ANY SECRETARY documented in this encounter Plan of Treatment Upcoming Encounters Date Type Department Care Team (Late st Contact Info) Description 05/17/2024 2:30 PM COMPANY SECRETARY Appointment [facility] [address] [place] [address] [place] [address] [place] [address] 05/25/2024 10:30 AM COMPANY SECRETARY Appointment [place] [address] [facility] [address] [place] [address] 05/26/2024 1:00 PM COMPANY SECRETARY Appointment Audiology at [facility] [address] [place] [address] [place] [phone] Robert Leiva AU.D. [address] [place] [address] 06/08/2024 8:15 AM CDT Appointment Pulmonary at [address] [address] Neurock, Isadora Esteves, STORE OPERATIONS ASSOCIATE, HOT STAMP OPERATOR 39[address] [place] [address] 11/22/2024 2:45 PM CDT Appointment Rheumatology at [facility] [address] [place] [address] [place] [address] Dakota Gould MD [address] [place] [address] documented as of this encounter Visit Diagnoses Diagnosis Systemic lupus erythematosus, unspecified SLE type, unspecified organ involvement status (HRC) documented in this encounter Care Teams Life Consultant Relationship Specialty [place] [address] [place] [address] PCP - General 12/11/11 documented as of this encounter
--- OUTSIDE RECORDS SUMMARY | 2024-05-10 17:03 | XMS_ITS | Encounter Summary ---
[facility] Organization [facility] Address [address] [place] [address] Care Team Providers Care Bottling Line Operator Name Role Phone Neida Aragon MD Primary Care Provider Reason for Referral * Consult/Transfer Care (Routine) - Closed Specialty Diagnoses / Procedures Referred By Ross mckenna Referred To Contact Diagnoses [place]struct[place] [address] [place] [address] Referral ID Status Reason Start Date Expiration Date Visits Re quested Visits Authorized [id number] Closed 04/15/2024 07/15/2025 1 1 Scheduling Instructions Your clinician has recommended an appointment with [facility]. This is not a sleep study order and must first be reviewed by a sleep specialist to determine the next steps. The review process looks at multiple factors including your insurance requirements, personal health history, and [place] [employer] guidelines. This order will be reviewed within 1 business day and sent to scheduling for one of the following appointments: - Consultation/Office Visit with a Sleep Medicine Specialist - Consultation/Office Visit with an Insomnia Specialist - Portable/Home Sleep Test If you do not hear from our scheduling staff within the next 7 days, please contact us at [phone] and select option 1. Question Answer Appointment [...] 03/29/24: 208 lb 6.4 oz (94.5 kg). DE SALES DIRECTOR Reason for Visit * Reason Comments Follow Up Sleep Apnea Encounter Details Date Type Department Care Team (Late st Contact Info) Description 04/15/2024 Nurse Triage [facility] [address] [place], [place] [phone] [place] [address] [place], [place] [phone] Follow Up Sleep Apnea Social History Tobacco [...] case she is not reached by them. DE SALES DIRECTOR * Neida Aragon MD - 04/15/2024 1:01 PM CST Home sleep study ordered - they usually call patient but she can call them if hasn't heard from them in a week or 2. Video or phone visit tomorrow at 1:30 if available. DE SALES DIRECTOR * Tonya Bernard RN - 04/15/2024 11:11 AM CST Clinician: Review and advise and Patient is expecting a call back from [facility] Patient/care process manager request: Input needed: ongoing elevated blood pressure [...] >= 100 Protocols used: Blood Pressure - [id number] DE SALES DIRECTOR * Karime Foster - 04/15/2024 11:04 AM [...] else I can help you with today? DE SALES DIRECTOR documented in this encounter Plan of Treatment Upcoming Encounters Date Type Department Care Team (Late st Contact Info) Description 05/17/2024 2:30 PM INSIDE SALES DIRECTOR Appointment [facility] [address] [place] [address] [place] [id number] [place] [address] 05/25/2024 10:30 AM INSIDE SALES DIRECTOR Appointment [facility] [place] [address] [facility] [address] [place] [address] 05/26/2024 1:00 PM INSIDE SALES DIRECTOR Appointment Audiology at [facility] [address] [facility] [address] [place] [phone] Robert Leiva AU.D. [address] [place] [address] 06/08/2024 8:15 AM CDT Appointment Pulmonary at [facility] [address] [address] [address] [place] [address] NeurockIsadora APRN, LIBRARY CLERK [address] [place] [address] 11/22/2024 2:45 PM CDT Appointment Rheumatology at [facility] [address] [place] [address] [place] [address] Dakota Gould MD [address] [place] [address] Scheduled Referrals Name Type Priority Associated Diagnoses Orde r Schedule Sleep Services Referral Routine Obstructive sleep apnea Ordered: 04/15/2024 documented as of this encounter Visit Diagnoses Diagnosis Obstructive sleep apnea- Primary Obstructive sleep apnea (adult) (pediatric) documented in this encounter Care Teams Bottling Line Operator Relationship Specialty [place] [address] [facility] [place] [address] PCP - General 12/11/11 documented as of this encounter
--- OUTSIDE RECORDS SUMMARY | 2024-05-10 17:03 | XMS_ITS | Encounter Summary ---
Author Organization [facility] Address [address] [place] [address] Care Team Providers Care Fudger Name Role Phone Neida Aragon MD Primary Care Provider Reason for Referral * Procedure/Equipment (Routine) - Authorized Specialty Diagnoses / Procedures Referred By Contac t Referred To Contact Diagnoses NATALY (obstructive sleep apnea) Procedures Sleep Diagnostic Tests: [place] [address] [facility] [place] [address] Referral ID Status Reason Start Date Expiration Date V isits Requested Visits Authorized [id number] Authorized 04/16/2024 07/16/2025 1 1 C DEVELOPER Encounter Details Date Type Department Care Team (Late st Contact Info) Description 04/16/2024 Notes/Orders [facility] [address] [place] [address] [place] [address] [place] [phone] NATALY (obstructive sleep apnea) (Primary Dx) Social [...] st Contact Info) Description 05/17/2024 2:30 PM NET C DEVELOPER Appointment [facility] [address] [place] [address] [place] [address] [place] [address] 05/25/2024 10:30 AM NET C DEVELOPER Appointment [facility] [place] [address] [facility] [address] [place] [address] 05/26/2024 1:00 PM NET C DEVELOPER Appointment Audiology at [facility] [address] [place] [address] [place] [phone] Robert Leiva AU.D. [address] [place] [address] 06/08/2024 8:15 AM CDT Appointment Pulmonary at [address] [address] Neurock, Isadora Esteves, INTERACTIVE PROJECT MANAGER, SCUBA DIVING INSTRUCTOR [address] [place] [address] 11/22/2024 2:45 PM CDT Appointment Rheumatology at [address] [address] Dakota Gould MD [address] [place] [address] Scheduled Orders Name Type Priority Associated Diagnoses Orde r Schedule Sleep Diagnostic Tests: HST Sleep Study Routine NATALY (obstructive sleep apnea) 1 Occurrences starting 04/16/2024 documented as of this encounter Visit Diagnoses Diagnosis NATALY (obstructive sleep apnea)- Primary Obstructive sleep apnea (adult) (pediatric) documented in this encounter Care Teams Fudger Relationship Specialty [place] [address] [place] [address] PCP - General 12/11/11 documented as of this encounter
== END 2024-05-07 20:59 | disposition home or self-care (01) ==
PROVIDERS: Emergency Provider Family Medicine; PCP Family Medicine
DX: R41.9 Unspecified symptoms and signs involving cognitive functions and awareness (principal); R41.841 Cognitive communication deficit; E83.52 Hypercalcemia
CPT/HCPCS: 36415; 70450; 80050; 80053; 82330; 83605; 83735; 83880; 84443; 84484; 85025; 85651; 86140; 99284; J7030